=== PATIENT | female | born 1940 | race Caucasian/White ===

== ENCOUNTER 2016-10-27 01:06 | Inpatient (IN) | payer OTHER ==
[~2016-10-27] VITALS: Ht 160 cm; Wt 46.9 kg
--- NOTE | ~2016-10-27 | HC ---
[facility] [place] [address] CONSULTATION Name: ALYSE STEVENS Room #: 430-P ADM IN M.R.#: [id number] Admission: 10/27/16 Attend Phys: Marco Barragan MD Discharge: Date of : 42 Report #: [id number] THIS REPORT FOR: //name// CC: Marco Laguerre DATE OF SERVICE: 10/30/2016 INFECTIOUS DISEASE CONSULTATION ATTENDING PHYSICIAN: Dr. Barragan. REASON FOR CONSULTATION: Persistent fever. HISTORY OF PRESENT ILLNESS: The patient is a 76-year-old white woman admitted through the Emergency Room with what is said to be altered mental status. The patient has a history of laryngeal cancer and high risk for aspiration, has a percutaneous gastrostomy. The patient is at present alert and comfortable, but not quite able to give any significant medical information in view of speech impairment secondary to her previous oropharyngeal surgical intervention. PAST MEDICAL HISTORY: Laryngeal cancer in the year 2000, status post surgery, chemotherapy and radiation therapy. Cigarette smoking quit 1997. COPD -- emphysematous type. Status post percutaneous gastrostomy. DRUG ALLERGIES: None listed. MEDICATIONS: The patient is on treatment with alprazolam 0.5 mg at bedtime, p.r.n., acetaminophen 650 per feeding tube q.i.d. p.r.n., trazodone 50 mg at bedtime, atorvastatin 40 mg at bedtime, hydrocodone bitartrate one tablet b.i.d. p.r.n., Zosyn 3.375 g IV every 6 hours, amitriptyline 25 mg b.i.d., docusate 50 mg feeding tube daily, docosahexaenoic acid 1000 mg daily, famotidine 20 mg b.i.d., levothyroxine 50 mcg feeding tube daily, metoclopramide 10 mg a.c. and at bedtime feeding tube, Atrovent and albuterol inhalation treatments, guaifenesin 400 mg feeding tube q.i.d. p.r.n., pilocarpine 5 mg t.i.d. p.o. p.r.n., Benadryl. SOCIAL HISTORY: See H and P old records. FAMILY HISTORY: See H and P old records. REVIEW OF SYSTEMS: See H and P and as above. PHYSICAL EXAMINATION: GENERAL: Chronically ill-appearing woman with significant speech impairment and coughing and moving bronchial secretions. [address] [address] CONSULTATION Name: ALYSE STEVENS Room #: 430-P [facility] IN R.#: [id number] Admission: 10/27/16 Attend Phys: Marco Barragan MD Discharge: Date of : 42 Report #: [id number] VITAL SIGNS: Temperature 102, pulse 102, respirations 17, BP 133/74. Height 5 feet 3 inches, weight 103.5 pounds. O2 saturation 91% on 5 L nasal cannula. HEENMT: Head normocephalic, atraumatic. Pupils equal, reactive, heavy arcus cornealis. Mouth distortion of anatomic findings of oropharyngeal cavity, possibly secondary to previous surgery at right tongue. The patient had significant speech impairment. NECK: Stiff, possibly from previous surgery, radiation therapy. LUNGS: Rhonchi, crackles posteriorly left lung base. HEART: S1, S2. No gallop or murmur. ABDOMEN: Infraumbilical laparotomy scar. Gastrostomy tube in place, soft, no masses or megaly. PELVIC AND RECTAL: Deferred. EXTREMITIES: No clubbing, cyanosis. NEUROLOGIC: Grossly within normal limits. LABORATORY DATA: Sodium 139, potassium 3, BUN 5, creatinine 0.5. Albumin 2.6 g/dL. WBC 8000, hemoglobin 9.5, platelets 207,000. White blood cell count differential revealed 92% neutrophils. Urinalysis on admission normal. ABGs on admission revealed pH 7.43, pCO2 of 41, pO2 of 80, bicarbonate 27.4, lactate 1.04. The set of gases on 2 L oxygen nasal cannula. MICROBIOLOGY DATA: Blood cultures were obtained, they remain negative. The sputum culture was ordered and is pending at the time of this dictation. I believe not sent. RADIOLOGY EVALUATION: A CT scan of the head revealed atrophic changes compatible with age. Otherwise, interprets being negative. Chest x-ray revealed large lung volumes compatible with emphysematous changes and left basilar changes. Repeat chest x-rays have been ordered for today and this is pending at the time of this dictation. We will review when available. ASSESSMENT: 1. Persistent fevers, possibly secondary to aspiration pneumonia. 2. Aspiration pneumonia. 3. History of laryngeal cancer, status post radiation and chemotherapy. 4. Status post percutaneous gastrostomy. 5. Anemia of chronic disease. 6. Hypoalbuminemia. SUGGESTIONS: Recommend obtain procalcitonin, ESR and CRP. Continue Zosyn 3.375 g IV q.6h. MRSA nasal screen. At Zyvox 600 mg IV every 12 hours. Obtain arterial blood gases. [facility] [address] [place] [address] CONSULTATION Name: ALYSE STEVENS Room #: 430-P ADM IN M.R.#: [id number] Admission: 10/27/16 Attend Phys: Marco Barragan MD Discharge: Date of : 42 Report #: [id number] Barragan, thank you for requesting my suggestions in the care of your patient. <ELECTRONICALLY SIGNED> By: Naoh Salmeron MD 10/31/16 1309 [id number] [id number] Noah Salmeron MD /nt
--- NOTE | ~2016-10-27 | HC ---
[facility] [place] [address] CONSULTATION Name: ALYSE STEVENS Room #: 430-P [facility] IN M.R.#: [id number] Admission: 10/27/16 Attend Phys: Marco Barragan MD Discharge: 11/04/16 Date of : 42 Report #: [id number] THIS REPORT FOR: //name// CC: Marco Laguerre DATE OF SERVICE: 10/30/2016 REFERRING PHYSICIAN: . REASON FOR REFERRAL: Hypoxia. HISTORY OF PRESENT ILLNESS: The patient is a 76-year-old white female who was admitted on 10/27/2016 with altered mental status. This admission, the patient has developed progressive hypoxia. A pulmonary consultation is requested. The patient is suspected to have aspiration due to profound lethargy, weakness. She has prior CVA in the past along with laryngeal cancer, undergoing chemo and radiation therapy. Chest x-ray shows bibasilar interstitial infiltrates. Currently, she appears dyspneic, has a congested cough. She is quite weak to clear secretions. PAST MEDICAL HISTORY: Notable for as mentioned above including history of laryngeal cancer, status post chemo and radiation therapy; history of chronic aspiration, hypertension, hypothyroidism; dysphagia, undergoing PEG tube placement; hysterectomy, appendectomy. ALLERGIES: None to medications. HOME MEDICATIONS: List reviewed. FAMILY HISTORY: Noncontributory. SOCIAL HISTORY: The patient has smoked for most of her life until 1997, no alcohol use. REVIEW OF SYSTEMS: As mentioned above, is notable for marked weakness and debility. PHYSICAL EXAMINATION: GENERAL: She is awake, alert, appears moderately dyspneic. VITAL SIGNS: Temperature is 102.0 degrees Fahrenheit, pulse is 100, respiratory rate is 17, blood pressure 130/74 mmHg, saturation is 92% on supplemental O2. [facility] [address] [place] [address] CONSULTATION Name: ALYSE STEVENS Room #: 430-P [facility] IN [facility]#: [id number] Admission: 10/27/16 Attend Phys: Marco Barragan MD Discharge: 11/04/16 Date of : 42 Report #: [id number] HEENT: Normocephalic, atraumatic. NECK: Supple. CHEST: Breath sounds are coarse bilaterally with crackles in the bases. CARDIOVASCULAR: Normal S1, S2. There are no murmurs or gallop. ABDOMEN: Soft, nontender, no organomegaly or masses felt. GENITOURINARY: Deferred. RECTAL: Deferred. EXTREMITIES: There is no edema, cyanosis or clubbing. MUSCULOSKELETAL: Remarkable for moderate muscle atrophy. LABORATORY DATA: Chest x-ray shows bilateral interstitial infiltrates, greater in the right than the left. Procalcitonin is 1.8. Sodium 139, potassium 3.0, chloride 104, CO2 is 27, BUN is 5, creatinine 0.5. WBC is 8000, hemoglobin 9.7, platelets are normal. Arterial blood gas revealed pH 7.48, pCO2 41, pO2 67 on 5 liters of O2, albumin 2.6. IMPRESSION: 1. Acute hypoxic respiratory failure in this 76-year-old white female likely due to aspiration pneumonia. 2. Marked debility, weakness, and malnutrition due to multiple reasons. 3. Old cerebrovascular accident. 4. History of laryngeal cancer, status post chemo and radiation therapy. RECOMMENDATION: Agree with broad-spectrum antibiotics to cover for presumed aspiration pneumonia. Agree with linezolid and Zosyn. Would treat for approximately 7-14 days depending on clinical response. Wean O2 for saturation 90%. Follow up chest x-ray. Thank you for this consultation. <ELECTRONICALLY SIGNED> By: Corbin Worrell MD 11/04/16 1125 [id number] [id number] Corbin Worrell MD /nt
[~2016-10-27 01:06] MED LIST: ACETAMINOP160 MG/12 PER TUBE; ADULT WAL-100 MG/5 M PER TUBE; ALPRAZOLAM 0.50.5 M1 PER TUBE; AMBIEN 5 MG TABL5 M1 PER TUBE; AMITRIPTYLINE H25 M2 PER TUBE; AMITRIPTYLINE H25 M2 PO; APAP500 PER TUBE; ASPIRIN325 PER TUBE; AUGMENTIN 500-1 EACH PER TUBE; AUGMENTIN PER TUBE; AUGMENTIN250 MG/55 PER TUBE; CAL MAG ZINC +1 EAC1 PO; COZAAR 25 MG TA25 M1 PER TUBE; DOCU LIQUI50 MG/5 ML PER TUBE; DOCU LIQUI50 MG/5 ML PO; DUONEB 0.5 MG-33 ML INH; DUONEB 2.5-0.5 M3 ML INH; DUONEB 2.5-0.5 M3 ML PO; ENOXAPARIN40 MG/0.1 SUBQ; FLOMAX0.4 MG PER TUBE; HYDROCODONE-APA1 TA1 PER TUBE; HYDROCODONE-APA1 TA1 PO; IBUPROFEN 200200 M1 PO; INDERAL LA120 M1 PO; LEVOTHYROXINE0.05 MG PER TUBE; MEGA MULTI FOR1 EACH PER TUBE; MELATONIN5 M1 PER TUBE; NORVASC5 MG PO; OMEGA-31000 M1 PER TUBE; PILOCARPINE HCL5 M1 PER TUBE; POTASSIUM20 PER TUBE; PRILOSEC 20 MG20 MG PER TUBE; REGLAN 10 MG TA10 MG PER TUBE; ROBITUSSIN100 MG/53 PER TUBE; SALAGEN5 MG PER TUBE; TRAZODONE HCL50 MG PER TUBE; TRAZODONE HCL50 MG PO; TUMS PER TUBE; ZANTAC 150MG T150 MG PER TUBE; ZANTAC 150MG T150 MG PO; ZOCOR40 MG PER TUBE; [UNRECOGNIZED DRUG - OTHER] PER TUBE; [UNRECOGNIZED DRUG - OTHER] PER TUBE; [UNRECOGNIZED DRUG - OTHER] PER TUBE
[2016-10-27 01:08] VITALS: BP 93/45
[2016-10-27] MEDS ORDERED: PROLIA60 MG/1 ML IM (01:19)
[2016-10-27] MEDS ORDERED: BIOTIN5000 MCG PO (01:20)
[2016-10-27 01:32] LABS: ABG SAMPLE TYPE ARTERIAL; BE(vivo) 2.4 mmol/L (-2 to +3); LACTATE 1.04 mmol/L (0.5-2.0); O2(CT) 14.8 mL/dL (15.0-23.0); O2Hb 95.4 % (92.0-98.0); PCO2 41.6 mmHg (35.0-45.0); PO2 80.4 mmHg (80.0-100.0); STICK SITE R.RADIAL; sO2 96.1 % (92.0-98.0); tCO2 28.3 mmol/L (24.0-30.0)
[2016-10-27 01:51] LABS: HEMOGLOBIN 10.4 gm/dL (12.0-15.0); MCH 29.3 pg (26.0-34.0); MCHC 33.6 g/dL (28.0-37.0); PLATELET COUNT 204 thou/uL (150-400); RBC 3.56 mil/uL (4.20-5.00); RDW 13.9 % (10.5-14.5); WBC 10.7 thou/uL (4.0-11.0)
[2016-10-27 01:58] LABS: CALCIUM 8.8 mg/dL (8.5-10.1); CREATININE 0.6 mg/dL (0.6-1.0); POTASSIUM 3.4 mmol/L (3.5-5.1)
[2016-10-27 02:00] LABS: MANUAL DIFF YES
[2016-10-27 02:14] LABS: URINE BILIRUBIN NEGATIVE (Negative); URINE BLOOD NEGATIVE (Negative); URINE COLOR YELLOW; URINE GLUCOSE-RANDOM* NEGATIVE (Negative); URINE KETONES NEGATIVE (Negative); URINE NITRITE NEGATIVE (Negative); URINE PROTEIN (DIPSTICK) NEGATIVE (Negative); URINE SPECIFIC GRAVITY <= 1.005 (1.003-1.035)
[2016-10-27 02:18] LABS: ALBUMIN 3.2 g/dL (3.4-5.0); DIRECT BILIRUBIN 0.2 mg/dL (<0.1-0.3); TOTAL BILIRUBIN 0.5 mg/dL (<0.1-1.0); TOTAL PROTEIN 6.7 g/dL (6.4-8.2)
[2016-10-27 03:13] LABS: TOTAL CELL COUNT 100
[2016-10-27 03:40] VITALS: BP 102/67
[2016-10-27 04:00] VITALS: BP 124/73
[2016-10-27 15:53] VITALS: BP 111/73
[2016-10-27 20:00] VITALS: BP 163/89
[2016-10-28 00:56] VITALS: BP 90/64
[2016-10-28 04:30] VITALS: BP 99/44
[2016-10-28 07:48] VITALS: BP 107/46
[2016-10-28 16:04] VITALS: BP 97/55
[2016-10-28 20:00] VITALS: BP 156/78
[2016-10-29 04:00] VITALS: BP 124/63
[2016-10-29 06:26] LABS: HEMATOCRIT 28.1 % (37.0-47.0); HEMOGLOBIN 9.5 gm/dL (12.0-15.0); MCH 29.4 pg (26.0-34.0); MCHC 33.8 g/dL (28.0-37.0); PLATELET COUNT 207 thou/uL (150-400); RBC 3.23 mil/uL (4.20-5.00); RDW 14.2 % (10.5-14.5)
[2016-10-29 06:32] LABS: MANUAL DIFF YES
[2016-10-29 06:57] LABS: ALBUMIN 2.6 g/dL (3.4-5.0); CALCIUM 7.6 mg/dL (8.5-10.1); CREATININE 0.5 mg/dL (0.6-1.0); TOTAL BILIRUBIN 0.2 mg/dL (<0.1-1.0); TOTAL PROTEIN 5.9 g/dL (6.4-8.2)
[2016-10-29 07:23] VITALS: BP 116/62
[2016-10-29 08:10] LABS: ABSOLUTE NEUTROPHILS 7.4 thou/uL (1.4-8.2); ANISOCYTOSIS SLIGHT; TOTAL CELL COUNT 100
[2016-10-29 16:14] VITALS: BP 133/75
[2016-10-29 20:00] VITALS: BP 184/80
[2016-10-29 23:00] VITALS: BP 143/49
[2016-10-30 04:11] VITALS: BP 162/73
[2016-10-30 07:17] VITALS: BP 133/74
[2016-10-30 12:49] LABS: ABG SAMPLE TYPE ARTERIAL; BE(vivo) 6.4 mmol/L (-2 to +3); HCO3 30.4 mmol/L (22.0-26.0); LACTATE 1.14 mmol/L (0.5-2.0); O2(CT) 15.2 mL/dL (15.0-23.0); PCO2 41.3 mmHg (35.0-45.0); PO2 67.4 mmHg (80.0-100.0); STICK SITE R.RADIAL; pH 7.485 (7.360-7.450); sO2 94.6 % (92.0-98.0); tCO2 31.7 mmol/L (24.0-30.0)
[2016-10-30 15:29] VITALS: BP 150/71
[2016-10-30 20:00] VITALS: BP 120/71
[2016-10-31 04:56] VITALS: BP 163/66
[2016-10-31 07:45] VITALS: BP 142/76
[2016-10-31 10:57] LABS: HEMOGLOBIN 9.8 gm/dL (12.0-15.0); MCH 29.6 pg (26.0-34.0); MCHC 33.7 g/dL (28.0-37.0); MCV 87.8 fL (80.0-100.0); PLATELET COUNT 191 thou/uL (150-400); RBC 3.31 mil/uL (4.20-5.00); WBC 7.9 thou/uL (4.0-11.0)
[2016-10-31 10:59] LABS: MANUAL DIFF YES
[2016-10-31 11:07] LABS: CREATININE 0.5 mg/dL (0.6-1.0)
[2016-10-31 11:09] LABS: POTASSIUM 2.2 mmol/L (3.5-5.1)
[2016-10-31 11:21] LABS: ABSOLUTE NEUTROPHILS 7.2 thou/uL (1.4-8.2); TOTAL CELL COUNT 80
[2016-10-31 11:22] LABS: ANISOCYTOSIS SLIGHT
[2016-10-31 15:28] VITALS: BP 100/59
[2016-10-31 20:00] VITALS: BP 134/82
[2016-11-01 04:00] VITALS: BP 143/62
[2016-11-01 06:34] LABS: HEMATOCRIT 27.2 % (37.0-47.0); HEMOGLOBIN 9.1 gm/dL (12.0-15.0); MCH 29.1 pg (26.0-34.0); MCHC 33.6 g/dL (28.0-37.0); MCV 86.7 fL (80.0-100.0); RBC 3.14 mil/uL (4.20-5.00); RDW 13.9 % (10.5-14.5); WBC 6.1 thou/uL (4.0-11.0)
[2016-11-01 06:47] LABS: CALCIUM 7.8 mg/dL (8.5-10.1); CREATININE 0.4 mg/dL (0.6-1.0)
[2016-11-01 06:58] LABS: POTASSIUM 2.4 mmol/L (3.5-5.1)
[2016-11-01 07:50] VITALS: BP 147/72
[2016-11-01 15:10] VITALS: BP 127/69
[2016-11-01 21:00] VITALS: BP 138/62
[2016-11-02 03:51] VITALS: BP 136/76
[2016-11-02 04:33] LABS: MAGNESIUM 1.9 mg/dL (1.8-2.4); POTASSIUM 3.2 mmol/L (3.5-5.1)
[2016-11-02 07:17] VITALS: BP 149/72
[2016-11-02 13:26] VITALS: BP 122/61
[2016-11-02 15:09] VITALS: BP 119/59
[2016-11-02 20:00] VITALS: BP 133/69
[2016-11-03 04:00] VITALS: BP 117/60
[2016-11-03 04:17] LABS: HEMATOCRIT 27.4 % (37.0-47.0); HEMOGLOBIN 9.1 gm/dL (12.0-15.0); MCH 29.4 pg (26.0-34.0); MCHC 33.1 g/dL (28.0-37.0); MCV 88.6 fL (80.0-100.0); RBC 3.09 mil/uL (4.20-5.00); RDW 14.3 % (10.5-14.5)
[2016-11-03 07:27] VITALS: BP 130/76
[2016-11-03 15:55] VITALS: BP 152/74
[2016-11-03 17:01] VITALS: BP 152/74
[2016-11-03 20:43] VITALS: BP 167/90
[2016-11-04 05:00] VITALS: BP 148/70
[2016-11-04] MEDS ORDERED: AUGMENTIN 875875 MG PER TUBE (07:18)
[2016-11-04 07:52] VITALS: BP 145/87
[2016-11-04 09:26] VITALS: BP 152/74
[2016-11-04] MEDS ORDERED: OXYGEN MISCELL ×2 (10:00→10:02)
== END 2016-11-04 10:32 | disposition home health service (06) | DRG 177 ==
LOC: ER 01:06 → EROBS 02:34 → 4E 02:34
PROVIDERS: Emergency Medicine; Family Medicine; Internal Medicine Infectious Disease; Internal Medicine Pulmonary Disease; Nurse Practitioner Family
DX: J69.0 Pneumonitis due to inhalation of food and vomit (principal); J96.01 Acute respiratory failure with hypoxia; E43 Unspecified severe protein-calorie malnutrition; I10 Essential (primary) hypertension; E78.5 Hyperlipidemia, unspecified; J44.9 Chronic obstructive pulmonary disease, unspecified; R41.82 Altered mental status, unspecified; D63.8 Anemia in other chronic diseases classified elsewhere; E03.9 Hypothyroidism, unspecified; E87.6 Hypokalemia; Z90.710 Acquired absence of both cervix and uterus; Z90.49 Acquired absence of other specified parts of digestive tract; Z86.73 Personal history of transient ischemic attack (TIA), and cerebral infarction without residual deficits; Z85.810 Personal history of malignant neoplasm of tongue; Z93.1 Gastrostomy status; Z87.891 Personal history of nicotine dependence; Z85.21 Personal history of malignant neoplasm of larynx; Z92.21 Personal history of antineoplastic chemotherapy; Z92.3 Personal history of irradiation; Z79.899 Other long term (current) drug therapy
CPT/HCPCS: 10183

== ENCOUNTER 2017-02-26 16:31 | Emergency (ER) | payer OTHER ==
[~2017-02-26] VITALS: Ht 160 cm; Wt 45.4 kg
[~2017-02-26 16:31] MED LIST changes: +AUGMENTIN 875875 MG PER TUBE; +BIOTIN5000 MCG PO; +OXYGEN MISCELL; +PROLIA60 MG/1 ML IM
== END 2017-02-26 17:26 | disposition home or self-care (01) ==
LOC: ER 16:31
DX: K94.23 Gastrostomy malfunction (principal); R63.8 Other symptoms and signs concerning food and fluid intake; I10 Essential (primary) hypertension; E78.00 Pure hypercholesterolemia, unspecified; E03.9 Hypothyroidism, unspecified; Z85.810 Personal history of malignant neoplasm of tongue; Z90.710 Acquired absence of both cervix and uterus; Z90.49 Acquired absence of other specified parts of digestive tract; Z87.891 Personal history of nicotine dependence; Y84.9 Medical procedure, unspecified as the cause of abnormal reaction of the patient, or of later complication, without mention of misadventure at the time of the procedure; Y92.89 Other specified places as the place of occurrence of the external cause

== ENCOUNTER → 2017-02-27 | Outpatient (CLI) | payer OTHER | LOC: SPEC 10:40 | DX: K94.23 Gastrostomy malfunction (principal); I10 Essential (primary) hypertension; E78.00 Pure hypercholesterolemia, unspecified; E03.9 Hypothyroidism, unspecified; M81.0 Age-related osteoporosis without current pathological fracture; Z90.710 Acquired absence of both cervix and uterus; Z85.810 Personal history of malignant neoplasm of tongue; Z98.890 Other specified postprocedural states; Z87.891 Personal history of nicotine dependence; Z79.899 Other long term (current) drug therapy ==

== ENCOUNTER → 2017-08-28 | Outpatient (CLI) | payer OTHER ==
[~2017-08-28] VITALS: Ht 162.6 cm; Wt 45.4 kg
[2017-08-28 12:55] VITALS: BP 129/44
== END | disposition home or self-care (01) ==
LOC: SPEC 06:52
DX: K94.23 Gastrostomy malfunction (principal); I10 Essential (primary) hypertension; E78.00 Pure hypercholesterolemia, unspecified; E03.9 Hypothyroidism, unspecified; Z90.710 Acquired absence of both cervix and uterus; Z90.49 Acquired absence of other specified parts of digestive tract; Z85.810 Personal history of malignant neoplasm of tongue; Z87.891 Personal history of nicotine dependence; Z79.891 Long term (current) use of opiate analgesic; Z98.890 Other specified postprocedural states

== ENCOUNTER → 2018-04-05 | Outpatient (CLI) | payer OTHER ==
[2018-04-05 12:29] VITALS: BP 200/100
== END | disposition home or self-care (01) ==
LOC: SPEC 12:14
DX: K94.23 Gastrostomy malfunction (principal); Z53.9 Procedure and treatment not carried out, unspecified reason; I10 Essential (primary) hypertension; E78.00 Pure hypercholesterolemia, unspecified; E03.9 Hypothyroidism, unspecified; Z79.899 Other long term (current) drug therapy; Z85.810 Personal history of malignant neoplasm of tongue; Z90.710 Acquired absence of both cervix and uterus; Z90.49 Acquired absence of other specified parts of digestive tract; Z98.890 Other specified postprocedural states; Z87.891 Personal history of nicotine dependence

== ENCOUNTER 2018-07-15 11:26 | Inpatient (IN) | payer OTHER ==
[~2018-07-15] VITALS: Ht 160 cm; Wt 59.0 kg
[2018-07-15 11:28] VITALS: BP 130/61
[2018-07-15 11:55] LABS: ABSOLUTE NEUTROPHILS 15.9 thou/uL (1.4-8.2); BASOPHILS 0.6 % (0.0-2.0); EOSINOPHILS 0.1 % (0.0-3.0); HEMATOCRIT 32.7 % (37.0-47.0); HEMOGLOBIN 10.8 gm/dL (12.0-15.0); MCH 30.8 pg (26.0-34.0); MCV 93.3 fL (80.0-100.0); MONOCYTES 5.2 % (1.0-8.0); PLATELET COUNT 526 thou/uL (150-400); POLYS 91.1 % (36.0-66.0); RBC 3.51 mil/uL (4.20-5.00); RDW 15.9 % (10.5-14.5); WBC 17.4 thou/uL (4.0-11.0)
[2018-07-15 12:05] LABS: ANION GAP 14 mmol/L (7-16); BUN 12 mg/dL (7-18); CALCIUM 8.9 mg/dL (8.5-10.1); CHLORIDE 97 mmol/L (98-107); CO2 28 mmol/L (21-32); CREATININE 0.6 mg/dL (0.6-1.0); GLUCOSE 75 mg/dL (74-106); SODIUM 139 mmol/L (136-145)
[2018-07-15 12:13] LABS: ALBUMIN 2.3 g/dL (3.4-5.0); SGOT 23 U/L (15-37); SGPT 15 U/L (30-65); TOTAL BILIRUBIN 0.3 mg/dL (<0.1-1.0); TOTAL PROTEIN 6.9 g/dL (6.4-8.2); TROPONIN-I <0.06 ng/mL (<0.06)
[2018-07-15 12:27] LABS: URINE CLARITY CLEAR; URINE COLOR YELLOW
[2018-07-15 12:33] LABS: URINE BILIRUBIN NEGATIVE (Negative); URINE BLOOD NEGATIVE (Negative); URINE GLUCOSE-RANDOM* NEGATIVE (Negative); URINE KETONES 1+ (Negative); URINE LEUKOCYTES-REFLEX NEGATIVE (Negative); URINE NITRITE-REFLEX NEGATIVE (Negative); URINE PROTEIN (DIPSTICK) NEGATIVE (Negative); URINE SPECIFIC GRAVITY <= 1.005 (1.005-1.035); URINE UROBILINOGEN 0.2 E.U./dl (0.2-1.0)
[2018-07-15 15:15] VITALS: BP 130/61
[2018-07-15 16:05] VITALS: BP 116/59
[2018-07-15 19:10] VITALS: BP 178/87
--- NOTE | 2018-07-15 20:31 | NUR ---
ASSUMED CARE OF PT AT 16:30. PT ARRIVED FROM ED IN STABLE CONDITION. BRONWYN STEVENS (SON) AT BEDSIDE. PT BELONGINGS DOCUMENTED - CLOTHES, SHOES, JACKET, PURSE. ORIENTED TO ROOM AND CALL LIGHT. ADMISSION ASSESSMENT COMPLETED. DENIES PAIN. [address], OXYGEN USE AT HOME 2 L NC AT NIGHT NEEDED. PEG TUBE PATENT, JEVITY 1.5 TUBE FEEDING RUNNING AT 20, GOAL IS 40. SON CONCERNED ABOUT RATE OF IV FLUIDS. DR. MEDEL NOTIFIED. ORDERED TO RUN ONE TIME IV FLUID, SEE EMAR. PT NPO, COUGH NOTED FROM ASPIRATION PNEUMONIA. HX OF JAW SURGERY, WOUND ON LEFT JAW COVERED WITH GAUZE AND SHANTHI AID. PT A&0, X4. PT HAS SLURRED SPEECH AT BASELINE DUE TO HX. ANXIOUS AT TIMES. PT IN STABLE CONDITION. END OF SHIFT.
[2018-07-15] MEDS ORDERED: NEURONTIN 300300 M1 PO (21:41)
--- NOTE | 2018-07-15 22:17 | EKG ---
[address] [address] ELECTROCARDIOGRAM REPORT Name: ALYSE STEVENS Room #: 419-P ADM IN M.R.#: [id number] Admission: 07/15/18 Attend Phys: Lesly Lauren Discharge: Date of : 42 Report #: [id number] THIS REPORT FOR: //name// [facility] ED Test Date: 2018-07-15 Test Time: 11:47:40 Pat Name: ALYSE STEVENS Department: Room: [facility] Gender: F Collar Trimmer: ROWDY : 1940 Requested By: Nav Ulrich Order Number: [id number] MD: Francisco Salmeron Measurements Intervals Wallace Rate: 81 P: 74 AK: 171 QRS: 12 QRSD: 108 T: 51 QT: 409 QTc: 475 Interpretive Statements Sinus rhythm Probable left atrial enlargement Left ventricular hypertrophy Compared to ECG 07/06/2015 07:25:01 Left ventricular hypertrophy now present Sinus tachycardia no longer present ST (T wave) deviation no longer present Possible ischemia no longer present Electronically Signed On 07-15-2018 22:17:25 FORMULA TECHNICIAN by Francisco Salmeron [email or web address] <ELECTRONICALLY SIGNED> By: Francisco Salmeron MD 07/15/18 2217 1147 1147 Francisco Salmeron MD /EPI
[2018-07-16 03:46] VITALS: BP 170/83
--- NOTE | 2018-07-16 04:33 | NUR ---
ASSUMED CARE AT 1900, ASSESSMENT COMPLETED. PT A&0x4, ABLE TO DISCUSS HER CURRENT MED REGIMEN; NOT DROWSY OR STRUGGLING TO ANSWER QUESTIONS. C/O HEADACHE, GAVE TYLENOL BY TUBE WHICH RELIEVED HEADACHE. DENIED NAUSEA OR SOB. NORMAL BREATHING PATTERN, LOWER LUNGS SLIGHT CRACKLES, DENIES COUGHING. C/O DRY MOUTH, TOLERATES SPONGES IN ICE, BUT C/O LEAKAGE FROM SURGICAL WOUND ON LEFT CHEEK. PLACED OPTIFOAM OVER SITE, CONSULTED DORMITORY COUNSELOR AT FAMILY/PATIENT REQUEST. JEVITY 1.5 INFUSING AT 20 ML/HR INTO PEG TUBE OVERNIGHT, NO RESIDUAL NOTED, 50 ML WATER FLUSH GIVEN. MIDNIGHT BLOOD SUGAR HIGH, BUT PT RECEIVING D5 FLUIDS WHICH STOPPED ABOUT 0200, DID NOT GIVE INSULIN. NO OTHER CONCERNS, WILL CONTINUE TO MONITOR.
[2018-07-16 05:29] LABS: HEMATOCRIT 31.8 % (37.0-47.0); HEMOGLOBIN 10.5 gm/dL (12.0-15.0); MCH 31.1 pg (26.0-34.0); MCV 94.5 fL (80.0-100.0); RBC 3.36 mil/uL (4.20-5.00); RDW 15.5 % (10.5-14.5); WBC 14.4 thou/uL (4.0-11.0)
[2018-07-16 07:15] VITALS: BP 198/90
[2018-07-16 08:25] VITALS: BP 180/81
--- NOTE | 2018-07-16 09:54 | NUR ---
If physician would like to keep pt at a tube feed goal rate of 40ml/hr, then recommend change tube feed formula to TwoCal HN. Otherwise will need 50ml/hr if continues on Jevity 1.5 formula
--- NOTE | 2018-07-16 14:46 | NUR ---
pt back in room, from test per orders. intro to cm, dcp, home health, rehab and transition of care. pt is a & o x 3, pleasant and able to make her needs know. remy reported " home alone, independent when feeling ok. drive, manage own medication, own tube feeding, from [facility]. have concentrator at home and 2 portable tanks. have private duty from visiting [employer]. had home health in past but not sure who it was with."/remy. no complaints during visit. cm passed on to nursing staff that pt wanting to see bedside nurse. discussed during los, there through weekend per hospitalist, possible thursday.
[2018-07-16 18:10] LABS: GLYCOHEMOGLOBIN (HGB A1C) 5.4 % (4.8-5.6)
[2018-07-16 20:50] VITALS: BP 194/97
[2018-07-17 00:05] VITALS: BP 137/68
--- NOTE | 2018-07-17 05:17 | NUR ---
REPORT RECEIVED FROM ELVI RN AT 2007. PT ARRIVED ON UNIT AT 2049 VIA WC WITH O2 @ 2L. BP UPON ARRIVAL 194/97, HR: 91. PT DENIES PAIN. ORDER RECEIVED FROM AURICULOTHERAPIST FOR PRN HYDRALAZINE 10MG Q6H PRN SBP >160. AFTER SITUATING AND ORIENTING TO UNIT, BP: 180/95. PRN HYDRALAZINE GIVEN PER PEG PER DR ORDER. BP @ 0005: 137/68, HR: 72. ZOSYN 100 ML @ 25 ML/HR GIVEN X2 VIA LEFT FA PIV WITHOUT COMPLICATION. OPTIFOAM DRSG ON LEFT CHEEK/JAW C/D/I. CONTINUOUS TUBE FEEDINGS OF JEVITY 1.5 @ 40 ML/HR GIVEN THROUGHOUT THE NIGHT WITHOUT COMPLICATION. PT C/O PRODUCTIVE COUGH. PT CURRENTLY SLEEPING SOUNDLY IN BED IN NO ACUTE DISTRESS. CALL LIGHT WITHIN REACH. BED LOCKED AND IN LOWEST POSITION. TM.
[2018-07-17 10:00] VITALS: BP 140/82
--- NOTE | 2018-07-17 10:00 | NUR ---
ASSUMED PT CARE AT 0700. ASSESSMENT COMPLETE AND IS CHARTED AT 1030. PT AWAKE AND ALERT/ORIENTED X4. RESTING IN BED. O2 REMAINS AT 2L PER NC. TUBE FEEDING IS JEVITY 1.5 AT 40ML/HR CONTINUOUS. PT DOES NOT APPEAR IN ANY ACUTE RESP DISTRESS THOUGH LUNGS ARE COURSE. PT HAS A MOIST PRODUCTIVE COUGH. VITAL SIGNS STABLE. WILL CONTINUE WITH CURRENT CARE.
--- NOTE | 2018-07-17 14:13 | NUR ---
ORAL SUCTIONING PROVIDED FOR PT. INSTRUCTED PT TO SUCTION OR SPIT SECRETIONS TO PREVENT ASPIRATION. TUBE FEEDING CHANGED TO GLUCERN 1.2 AT 1030 PER ORDERS. WILL CONTINUE TO MONITOR.
--- NOTE | 2018-07-17 16:11 | NUR ---
MESSAGE LEFT ON SPACER TYPE BAR AND SEGMENT VOICEMAIL FOR CONSULT.
--- NOTE | 2018-07-17 18:01 | NUR ---
PT CONTINUES TOWARDS GOALS. ORAL SUCTIONING AT BEDSIDE. PT USING WITHOUT DIFFICULTY. MOIST COUGH STILL NOTED. TOLERATING FEEDINGS WELL. NO NEW CONCERNS AT THIS TIME.
[2018-07-17 19:20] VITALS: BP 191/94
[2018-07-17 20:12] VITALS: BP 190/90
[2018-07-17 20:38] VITALS: BP 182/97
[2018-07-17 21:27] VITALS: BP 181/86
[2018-07-18 02:14] VITALS: BP 98/62
[2018-07-18 05:26] VITALS: BP 97/56
--- NOTE | 2018-07-18 06:04 | NUR ---
ASSUMED CARE OF PATIENT AT 1900. BP: 191/94. PRN HYDRALAZINE GIVEN AT 192. 2011: BP: 190/90, HR: 94. 2037: BP: 182/97, HR: 93. ASSESSMENT COMPLETED AT 2099 AND IS DOCUMENTED. LUNG SOUNDS REMAIN COARSE. PRODUCTIVE COUGH WITH PATIENT INDEPENDENTLY SUCTIONING ORALLY. MICROSTRATEGY REPORTS DEVELOPER NOTIFIED @ 2145 OF PT'S HTN. ORDERS FOR CLONIDINE 0.2MG ONE TIME DOSE RECEIVED AND GIVEN AT 2205. ALSO NEW ORDER TO RESTART LOSARTAN 25MG ONCE DAILY 07/18 @ 0900. PRN NORCO GIVEN FOR C/O 01/29 HEADACHE WITH NO RELIEF. PT DENIES HEADACHE OR PAIN THIS AM. 0215: BP: 98/62, HR: 74. 0526: BP: 97/56, HR: 76. PT UP TO BSC X1 ALL NIGHT. ZOSYN GIVEN X2 VIA LEFT FA PIV WITHOUT COMPLICATION. CONTINUES ON O2 @ 2L VIA NC. GLUCERNA TUBE FEEDING RUNNING AT 40 ML/HR, PATIENT TOLERATING WELL. PT CURRENTLY SLEEPING SOUNDLY IN BED IN NO ACUTE DISTRESS. CALL LIGHT WITHIN REACH. BED LOCKED AND IN LOWEST POSITION. WCTM.
--- NOTE | 2018-07-18 06:40 | NUR ---
THIS NURSE AGREES WITH THE ASSESSMENT AND NOTES ON THIS PATIENT FROM PRINTED CIRCUIT PHOTOGRAPHER.
[2018-07-18 06:49] LABS: CALCIUM 8.7 mg/dL (8.5-10.1); CREATININE 0.7 mg/dL (0.6-1.0); MAGNESIUM 1.5 mg/dL (1.8-2.4)
[2018-07-18 06:54] LABS: POTASSIUM 2.6 mmol/L (3.5-5.1)
[2018-07-18 07:32] VITALS: BP 112/51
[2018-07-18 07:47] LABS: FOLIC ACID 27.6 ng/mL (8.6-58.9)
--- NOTE | 2018-07-18 11:17 | NUR ---
ASSUMED CARE OF PATIENT THIS MORNING. PATIENT IS ALERT AND ORIENTED X3. SHE IS UP WITH STANDBY ASSISTANCE. PATIENT HAS CONTINUOUS GLUCERNA TUBE FEEDING RUNNING AT 40 ML/HR. NO GASTRIC RESIDUAL OBSERVED. PATIENT PERFORMS SELF ORAL SUCTIONING WITH A AYAHUER. SHE RECEIVED MEDICATION THROUGH HER PEG TUBE CRUSHED. POTASSIUM WAS 2.6 THIS MORNING. IV POTASSIUM WAS ORGINALLY ORDERED BY NURSE PRACTITIONER BUT LATER STOPPED BY PHYSICIAN. PATIENT IS ALSO RECEIVING IV MAGNESIUM. SHE IS ON 2L OF OXYGEN. SHE HAS A DRESSING ON THE OUTSIDE OF HER LEFT JAW. PATIENT IS CURRENTLY RESTING IN BED WITH CALL LIGHT WITHIN REACH. PATIENT CALLS OUT APPROPRIATELY FOR ASSISTANCE. FALL PRECAUTIONS IN PLACE.
[2018-07-18 18:29] VITALS: BP 147/67
[2018-07-19 06:39] LABS: CALCIUM 8.7 mg/dL (8.5-10.1); CREATININE 0.7 mg/dL (0.6-1.0)
[2018-07-19 06:41] LABS: POTASSIUM 3.6 mmol/L (3.5-5.1)
[2018-07-19 07:14] VITALS: BP 105/51
--- NOTE | 2018-07-19 07:38 | HC ---
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 HISTORY OF PRESENT ILLNESS: Chart reviewed, patient examined. This is a 78-year-old woman with fairly extensive medical history and diagnosis of pharyngeal cancer back in the early 1999, underwent aggressive therapy including radiation treatment. She was left with an osteonecrosis and over the course of the years, has had two extended periods of hyperbaric oxygen and reconstructive surgery. There was a concern about chronic infection due to the fact that she has chronic draining sinus tract. We do not have any available cultures. She reports what appears to be chronic suppressive therapy, taking doxycycline for the better part of the year. It is not clear that she had recent fevers. She does aspirate with oral food intake. She does receive bolus enteral feedings via a PEG tube. Her weight is variable and recently increased her intake due to weight loss. She denies any abdominal-related complaints. She apparently has a caregiver, although she is able to ambulate typically. Blood cultures were collected at the time of admission, 06/[address] soft tissue of the neck shows erosion fragmentation of the body of the mandible on left consistent with osteomyelitis. No evident soft tissue abscess. Lactic acid was elevated at 3.7 on admission. At this point, she is quite lucid, some moderate degree of discomfort. ALLERGIES: None known. CURRENT MEDICATIONS: Include vancomycin, metformin, losartan, levothyroxine, gabapentin, trazodone, alprazolam, enoxaparin, Zosyn, insulin sliding scale, metoclopramide. PAST MEDICAL HISTORY: Includes above-noted pharyngeal cancer, hypertension in the past, currently on no medicines, high cholesterol, hypothyroidism, repeated ongoing aspiration, has a PEG tube, hysterectomy, appendectomy. [address] [address] CONSULTATION Name: CORINEALYSE Room #: 226-P [facility] IN .R.#: [id number] Admission: 07/15/18 Attend Phys: Lesly Lauren Discharge: Date of : 42 Report #: [id number] SOCIAL HISTORY: Former smoker. No ethanol. FAMILY HISTORY: Noncontributory. REVIEW OF SYSTEMS: Otherwise, 10-point review of systems unremarkable with exception noted in history of present illness. PHYSICAL EXAMINATION: GENERAL: She appears chronically ill, very pleasant, cooperative, appears undernourished, [id number] distress. VITAL SIGNS: Temperature 98.2, pulse 77, respirations 18, blood pressure 112/51. SKIN: Warm. HEENT: Remarkable for the extraocular muscles intact. There is a draining sinus with purulent material. It is quite tender to palpation, increased from baseline. NECK: Supple. LUNGS: Somewhat diminished, right-sided rales. HEART: Regular. I do not appreciate any murmur. ABDOMEN: Soft, nontender, nondistended. EXTREMITIES: No cyanosis. GENITOURINARY AND RECTAL: Deferred. LABORATORY DATA: Blood cultures 06/[address] of soft tissue neck was noted above. TSH 0.972. Urinalysis unremarkable. Electrolytes: Sodium 139, potassium 3.0, chloride 97, bicarbonate is 28, anion gap of 14, BUN and creatinine of 12 and 0.6. LFTs unremarkable. Albumin of 2.3. Total protein 6.9, estimated GFR of 97. Chest x-ray: Areas of pneumonitis in right lower lobe, likely some acute on chronic component. ASSESSMENT: Probable chronic osteomyelitis involving the left mandible, longstanding issues with a sinus tract. Whether this is the issue led to the episode is unclear. I think we would be mindful of risk of aspiration changes on her x-ray. At this point, she is on supplemental oxygen, although she is not in distress. We will continue empiric therapy with vancomycin, piperacillin and tazobactam. PLAN: Noted plans to obtain records from . We will await final blood culture results. The evidence may well favor false positive contaminant. We will discuss with Dr. Breaux. <ELECTRONICALLY SIGNED> By: Andrea Ordaz MD 07/19/18 0738 1737 [id number] Andrea Ordaz MD /nt
--- NOTE | 2018-07-19 10:11 | NUR ---
Formula changed to glucerna with slight elevated BG. Recommend adjust goal rate to 60ml/hr or could use Jevity 1.5 at 50ml/hr if lower infusion rate preferred
--- NOTE | 2018-07-19 14:20 | NUR ---
WOUND CONSULT: PT. WAS SEEN TODAY BY DR. MANCINI AND MYSELF. PT. HAS A WOUND TO HER LEFT CHEECK. IT HAS BEEN CONFIRMED BY CT THAT THERE IS UNDERLYING OSTEO IN HER MANDIBLE. DR. MANCINI HAD A LONG DISCUSSION WITH BOTH THE PT. AND SON AND AT THIS TIME THEY DO NOT WISH TO PROCEED WITH ANY MORE SURGICAL INTERVENTION. PLAN WILL BE TO FOLLOW UP IN THE WOUND CLINIC ON A OUTPAIENT BASIS. RECOMMENDATIONS: BORDERED FOAM TO BE CHANGED DAILY AND PRN SOILAGE. PT. AND STAFF NURSE WERE INSTRUCTED ON PLAN OF CARE.
--- NOTE | 2018-07-19 15:05 | NUR ---
ASSUMED CARE OF PATIENT THIS MORNING. PATIENT IS A&O WITH SOME CONFUSION. SHE WAS NOT ABLE TO IDENTIFY WHERE SHE WAS THIS MORNING. ONCE SHE WOKE UP MORE SHE BECAME MORE ORIENTED. PATIENT'S TRANSFER TO WAS CANCELED, THE POSSIBLE SURGERY THAT WAS ORIGINALLY TALKED ABOUT WILL NOT BE PERFORMED. PHYSICIAN IS CONSIDERING DISCHARGING PATIENT TOMORROW. SHE IS ON CONTINUOUS TUBE FEEDING OF GLUCERNA. DIETITIAN WAS CONSULTED AND WANTED TO INCREASE THE AMOUNT OF FEEDING FROM 40ML/HR TO 60ML/HR, DR. MEDEL OK'D THE INCREASE. SHE IS NPO, ALL MEDICATIONS ARE CRUSHED AND PUT THROUGH PEG TUBE. HER FACIAL WOUND WAS OBSERVED BY WOUND CARE TODAY AND HER OPTIFOAM DRESSING WAS CHANGED. SHE HAS NOT COMPLAINED OF ANY PAIN TODAY. SHE SELF SUCTIONS WITH A YANKAUER, SMALL AMOUNTS OF SPUTUM HAVE BEEN PRODUCED THROUGHOUT THE DAY. DIMINISHED BREATH SOUNDS WERE HEARD UPON AUSCULTATION THIS MORNING. SHE RECEIVES Q4H BREATHING TREATMENTS AND ON 2L OF OXYGEN. PATIENT IS ON FALL PRECAUTIONS. SHE IS CURRENTLY SITTING IN THE RECLINER WITH THE CHAIR ALARM UNDERNEATH HER. PATIENT HAS CALL LIGHT WITHIN REACH AND ONLY CALLS OUT AT TIMES FOR ASSISTANCE. WILL CONTINUE TO CHECK ON PATIENT FOR ANY NEEDED ASSISTANCE.
--- NOTE | 2018-07-19 16:07 | HC ---
[facility] [place] [address] CONSULTATION Name: HILDAALYSE David Room #: 226-P ADM IN M.R.#: [id number] Admission: 07/15/18 Attend Phys: Lesly Lauren Discharge: Date of : 44 Report #: [id number] THIS REPORT FOR: //name// CC: Lesly Laguerre DATE OF SERVICE: 07/16/2018 CHIEF COMPLAINT AND REASON FOR ADMISSION: Altered mental status. HISTORY OF PRESENT ILLNESS: The patient was apparently felt to be slumped on a couch, began sliding off, caregiver felt that she was not safe at home and was brought to the hospital. She has had a chronic draining surgical wound or possible fistula near the angle of the left mandible. She has apparently had previous surgical intervention at last July. She has had previous hyperbaric oxygen therapy, presumably for osteoradionecrosis of the mandible. She has not been able to eat or drink very well. She does drink coffee for pleasure and is presumed to have some ongoing aspiration. The patient denies significant pain in her mouth at this time, but does have the inability to swallow or eat and has a feeding tube. PAST MEDICAL HISTORY: Positive for history of tongue cancer and subsequent radiation and presumably also chemotherapy. Records are not available for review at this time. She has a history of chronic aspiration, has a history of PEG tube. PAST SURGICAL HISTORY: She has had previous hysterectomy, appendectomy, high cholesterol and hypertension. SOCIAL HISTORY: The patient is a previous smoker. No history of alcohol use. FAMILY HISTORY: Noncontributory. ALLERGIES: No known drug allergies. MEDICATIONS: Include Synthroid, [place], alprazolam, metoclopramide, Prilosec, Zocor, Zantac, Elavil, omega 3, Desyrel, Salagen, DuoNeb, Prolia, and biotin. REVIEW OF SYSTEMS: Somewhat limited and are mainly discussed already in the history of present illness. The patient denies pain. She is aware that she has had surgical intervention to her left mandible, the details of which are not exactly understood. She had radiation in 2000 for tongue cancer as well as surgical intervention. She presumably developed complications of osteonecrosis of the mandible and did undergo some duration of hyperbaric oxygen therapy both at [facility] and at [facility]. Other systems are negative. [address] [address] CONSULTATION Name: AMYALYSE Lam Room #: 226-P [facility] IN ..#: [id number] Admission: 07/15/18 Attend Phys: Lesly Lauren Discharge: Date of : 42 Report #: [id number] PHYSICAL EXAMINATION: VITAL SIGNS: At this time include pulse rate 100, respiratory rate 18, blood pressure 180/81, temperature 98.9. GENERAL: This is a chronically ill and somewhat thin-appearing female patient who appears to be in minimal distress. HEENT: Head normocephalic. Nose is clear. Throat demonstrates the oropharynx is difficult to visualize likely due to radiation effect as well as post-surgical change. There is an area of crusting and ulceration near the angle of the mandible on the left. It is minimally tender. NECK: Supple. LUNGS: Diminished. HEART: Regular rhythm. ABDOMEN: Soft. EXTREMITIES: Without clubbing or cyanosis. NEUROLOGIC: The patient does appear to be alert, has a symmetrical motor exam. LABORATORY DATA: Includes sodium 139, potassium 3.0, chloride 97, CO2 of 28, BUN 12, creatinine 0.6, glucose of 75, AST is 23, total bilirubin 0.3, calcium is 8.9, alkaline phosphatase 111, ALT 15, total protein 6.9, albumin 2.3. CRP is 246. White blood cell count is 14.4 with hemoglobin of 10.5, hematocrit of 31.8. Sed rate is pending. CT scan of the neck and mandible demonstrates erosion and fragmentation of the body of the mandible on the left consistent with osteomyelitis. No associated soft tissue mass or abscess seen. No cervical lymphadenopathy. Bilateral carotid artery calcification and biapical emphysema and pleural parenchymal scarring. CLINICAL IMPRESSION: 1. Surgical wound versus sinus tract involving the left neck just inferior and posterior of the angle of the mandible on the left. 2. History of tongue cancer status post surgery and radiation, possible previous chemotherapy. 3. 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 RECOMMENDATIONS: At this point in time, we will check sed rate and CRP. Patient may have already received maximal therapy for her mandibular process, although it appears that it is not entirely resolved. She may require additional antibiotic therapy, surgical intervention and possible need for mandibular reconstruction, which would require hyperbaric oxygen therapy for support. It is not apparent that the need for mandibular reconstruction is urgent at present. For local care, we will recommend topical bordered foam to the area. It would be worthwhile reviewing records from if possible. [facility] [address] [place] [address] CONSULTATION Name: ALYSE STEVENS Room #: 226-P ADM IN M.R.#: [id number] Admission: 07/15/18 Attend Phys: Lesly Lauren Discharge: Date of : 42 Report #: [id number] will continue to follow while here in the hospital. I appreciate being asked to see her in consultation. <ELECTRONICALLY SIGNED> By: Remi Camarillo MD 07/19/18 1607 [id number] Remi Camarillo MD /nt
[2018-07-19 19:39] VITALS: BP 118/52
--- NOTE | 2018-07-20 06:43 | NUR ---
PATIENT ALERT AND ORIENTED X PERSON, PLACE AND SITUATION. CONFUSED TO WETHER DAY OR NIGHT. HAS COARSE BS AND A PRODUCTIVE COUGH. USES YONLERS TO SUCTION SELF. UP TO BSC WITH ASSIST OF 1. REMAINS NPO D/T ASPERATION. ACCUCHECKS WERE CHANGED FROM &HS TO Q6 BECAUSE SHE IS NPO AND ON GLUCERNA AT 60ML/HR. AT MIDNIGHT IT WAS 101 AND THIS AM WAS 106. HER RESIDUALS FOR 21, MN AND 06 WAS 0. SLEPT MOST OF NIGHT. C/O HEADACHE THIS AM, TYLENOL GIVEN PER PEG.
[2018-07-20 08:43] VITALS: BP 157/58
[2018-07-20] MEDS ORDERED: AUGMENTIN600 MG/5 M PO (09:02)
[2018-07-20] MEDS ORDERED: COZAAR 25 MG TA25 M1 PO (09:12)
[2018-07-20] MEDS ORDERED: GLUCOPHAGE500 MG PO (09:12)
--- NOTE | 2018-07-20 10:09 | NUR ---
DISCHARGE NOTE: FELIPE reviewed chart. Pt has discharge orders to go home with HH today. FELIPE left voice message for pt's son, Arnulfo ([phone]). FELIPE spoke with pt's dtr-in-law via phone to notify of discharge. Arnulfo will contact FELIPE to arrange transportation home and coordinate HH. Awaiting call back at this time. FELIPE is following to assist as needed with discharge planning.
[2018-07-20 10:34] VITALS: BP 157/58
--- NOTE | 2018-07-20 12:37 | NUR ---
WOUND FOLLOW UP: PT. WAS SEEN TODAY BY DR. CAVAZOS AND MYSELF. PT. WOUND IS STABLE AT THIS TIME. PT. WAS IN GOOD SPIRITS TODAY. RECOMMENDATIONS: CONTINUE WITH CURRENT PLAN OF CARE. PT. AND STAFF NURSE WERE INSTRUCTED ON PLAN OF CARE.
== END 2018-07-20 14:19 | disposition home health service (06) | DRG 177 ==
LOC: ER 11:26 → EROBS 13:54 → 4E 13:54 → SICU 07-16 21:15
PROVIDERS: Emergency Medicine; Nurse Practitioner Family; ADMIT Hospitalist
DX: J69.0 Pneumonitis due to inhalation of food and vomit (principal); G92 Toxic encephalopathy; M87.88 Other osteonecrosis, other site; K11.4 Fistula of salivary gland; R78.81 Bacteremia; R13.11 Dysphagia, oral phase; M62.84 Sarcopenia; E87.6 Hypokalemia; E74.39 Other disorders of intestinal carbohydrate absorption; J32.0 Chronic maxillary sinusitis; R73.9 Hyperglycemia, unspecified; T81.89XA Other complications of procedures, not elsewhere classified, initial encounter; Y83.8 Other surgical procedures as the cause of abnormal reaction of the patient, or of later complication, without mention of misadventure at the time of the procedure; B96.89 Other specified bacterial agents as the cause of diseases classified elsewhere; E78.5 Hyperlipidemia, unspecified; J44.9 Chronic obstructive pulmonary disease, unspecified; F41.9 Anxiety disorder, unspecified; M27.2 Inflammatory conditions of jaws; I10 Essential (primary) hypertension; E03.9 Hypothyroidism, unspecified; M81.0 Age-related osteoporosis without current pathological fracture; D63.8 Anemia in other chronic diseases classified elsewhere; Z85.810 Personal history of malignant neoplasm of tongue; Z93.1 Gastrostomy status; Z68.23 Body mass index [BMI] 23.0-23.9, adult; Z90.710 Acquired absence of both cervix and uterus; Z79.2 Long term (current) use of antibiotics; Z79.899 Other long term (current) drug therapy; Y92.89 Other specified places as the place of occurrence of the external cause; T66.XXXS Radiation sickness, unspecified, sequela
CPT/HCPCS: 10084; 15000

== ENCOUNTER 2018-08-12 12:38 | Emergency (ER) | payer OTHER ==
[~2018-08-12] VITALS: Ht 162.6 cm; Wt 47.6 kg
[~2018-08-12 12:38] MED LIST changes: +AUGMENTIN600 MG/5 M PO; +COZAAR 25 MG TA25 M1 PO; +GLUCOPHAGE500 MG PO; +NEURONTIN 300300 M1 PO
[2018-08-12 15:03] VITALS: BP 141/77
== END 2018-08-12 15:04 | disposition home or self-care (01) ==
LOC: ER 12:38
DX: S22.060A Wedge compression fracture of T7-T8 vertebra, initial encounter for closed fracture (principal); S01.01XA Laceration without foreign body of scalp, initial encounter; S60.221A Contusion of right hand, initial encounter; I10 Essential (primary) hypertension; E78.00 Pure hypercholesterolemia, unspecified; E03.9 Hypothyroidism, unspecified; E78.5 Hyperlipidemia, unspecified; Z90.710 Acquired absence of both cervix and uterus; Z87.891 Personal history of nicotine dependence; Z90.49 Acquired absence of other specified parts of digestive tract; Z85.810 Personal history of malignant neoplasm of tongue; W18.39XA Other fall on same level, initial encounter; Y92.89 Other specified places as the place of occurrence of the external cause; Y93.89 Activity, other specified; Y99.8 Other external cause status

== ENCOUNTER 2018-09-10 17:50 | Inpatient (IN) | payer OTHER ==
[~2018-09-10] VITALS: Ht 167.6 cm; Wt 55.6 kg
[2018-09-10] VITALS (14 sets, daily range): BP systolic 143–171; BP diastolic 81–105
--- NOTE | ~2018-09-10 | HC ---
[facility] [place] [address] CONSULTATION Name: AMYCaroleALYSE David Room #: 239-P ADM IN .R.#: [id number] Admission: 09/10/18 ������������������ Attend Phys: Gabino Blas MD Discharge: ������������������ Date of : 42 Report #: [id number] THIS REPORT FOR: //name// CC: Gabino GAMINO PCP DATE OF SERVICE: 09/15/2018 HISTORY OF PRESENT ILLNESS: The patient 78-year-old white female admitted with increased shortness of air, noted to have a fever of 102, diagnosed with multifocal pneumonia, influenza A and B, drndf-ty-aiisrgc respiratory failure, sepsis, non-ST elevation MD. She is currently in the Intensive Care Unit. She was followed by Infectious Disease is on IV vancomycin and Zosyn. Has been given Solu-Medrol. She has significant weakness and has had a decline with her functional abilities and we are seeing her in rehabilitation medicine consultation. She has the old PEG tube from throat cancer and has chronic dysphagia from the radiation. PAST MEDICAL HISTORY: As noted above. She has had a history of chronic aspiration. She apparently gave herself her own PEG tube feedings at home. There is a history of left jaw sinus infection. She has the prior history of tongue cancer status post radiation treatment. Hypertension, elevated cholesterol, hypothyroidism, depression. PAST SURGICAL HISTORY: Includes the above noted surgery, history of appendectomy, and hysterectomy. MEDICATIONS: Please see the full medication listing. This includes vitamins, herbals, and supplements per report. ALLERGIES: No known drug allergies. HABITS: Past history of tobacco abuse, 1-1/2 packs per day, quit in 1997. There is a history of alcohol usage, unknown amount of vodka that she takes via PEG tube per day. FAMILY HISTORY: Noncontributory. SOCIAL HISTORY: Lives in a house alone. No steps. Did not utilize gait aids. Apparently even did some driving in the community. She does have a caregiver, comes 2 times a week to do her IADLs, but she was able to do her own ADLs. Her son is noted to be a respiratory therapist, Arnulfo, here at [facility]. REVIEW OF SYSTEMS: Did not offer any current complaints of chest pain, shortness of breath, abdominal discomfort. No focal extremity pain complaints. [facility] [address] [place] [address] CONSULTATION Name: ALYSE STEVENS Room #: [address] [place] [address] [place] [facility].#: [id number] Admission: 09/10/18 ������������������ Attend Phys: Gabino Blas MD Discharge: ������������������ Date of : 42 Report #: [id number] No headache. No note of any bowel or bladder changes. Complains of significant weakness. This is noted to be generalized. PHYSICAL EXAMINATION: GENERAL: A 78-year-old white female seen in the Intensive Care Unit. VITAL SIGNS: Temperature is 97.8, pulse 67, respirations 15, blood pressure is 156/71. The patient is sleepy, but will easily arouse. FiO2 of per minute through the high flow nasal cannula. She is noted to have an evolving ARDS per Pulmonary. There was a note of some encephalopathy that has improved/resolved. She follows basic 1 step commands without difficulty. Thin, small statured, functional range of motion of the upper and lower extremities, would grade her strength at probably a 3+/5. DTRs are trace to 1. She does not have any distal lower extremity edema. Mod assist with sit to stand. She took a few steps mod assist. She is on high flow oxygen. ASSESSMENT: A 78-year-old white female with the following problem list: 1. 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 2. Encephalopathy appears improved/resolved. 3. Acute hypoxemic respiratory failure with evolving acute respiratory distress syndrome. She is on high flow nasal cannula. 4. Sepsis. 5. Multifocal pneumonia. 6. Influenza A and B. 7. Non-ST elevation myocardial infarction. 8. Transaminitis. 9. Past history of tongue cancer with radiation, dysphagia, and prior percutaneous endoscopic gastrostomy tube. 10. History of chronic aspiration. 11. Chronic left jaw sinus infection. 12. History of EtOH usage through percutaneous endoscopic gastrostomy tube. PLAN: The patient is continuing in the Intensive Care Unit. We are having therapies work with her. We are considering her for an acute in-hospital inpatient rehabilitation stay as she further medically stabilizes. We will be glad to follow along with you regarding her rehab therapy needs. ��������������������������������������������� ���������������������������������������� By: ��������������������������������������������� 1114 13 Renato Coello MD /PMT
--- NOTE | ~2018-09-10 | HC ---
[facility] [place] [address] CONSULTATION Name: ALYSE STEVENS Room #: 216-P [facility] IN .R.#: [id number] Admission: 09/10/18 ������������������ Attend Phys: Gabino Blas MD Discharge: ������������������ Date of : 42 Report #: [id number] THIS REPORT FOR: //name// CC: Gabino Blas [facility] DATE OF SERVICE: 09/18/2018 NEUROBEHAVIORAL STATUS EXAM: ATTENDING PHYSICIAN: Lorenzo Blas MD. CPR AMBULANCE DRIVER: Tonny Campo, PhD. CLINICAL PRESENTATION: The patient is a 78-year-old female admitted to the [facility] for evaluation and treatment of shortness of air and mental status changes. The patient was diagnosed with a critical illness myopathy, acute hypoxemic respiratory failure with evolving acute respiratory distress syndrome and encephalopathy. The encephalopathy appeared to be improving. Her diagnoses included sepsis, multifocal pneumonia, influenza A and B, non-ST elevation myocardial infarction, transaminitis, history of tongue cancer with radiation, dysphagia and a percutaneous endoscopic gastrostomy tube, chronic aspiration, left jaw sinus infection and a history of alcohol abuse through percutaneous endoscopic gastrostomy tube. A complete description of her medical condition and history along with medications can be found in her medical record. Neuropsychological consultation was requested to provide assistance in the assessment of cognitive and emotional status and to provide recommendations and services. Prior to this most recent admission, she was living alone in her own home. She has a caregiver that is available 3 days a week. The patient has one child. Her son is a respiratory therapist at the Medical Center. The patient is a high school graduate. 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 The patient is reported to have been independent with instrumental activities of daily living and including driving. The patient was an only child. TECHNIQUES UTILIZED: Clinical interview, review of medical records, staff consultation and behavioral observation, family interview -- son and mini mental status exam 2 standard version, clock drawing, category fluency assessment and brief abstract reasoning test. EXAMINATION FINDINGS: The patient was alert and cooperative with the assessment. She accurately described events surrounding her admission. [facility] [address] [place] [address] CONSULTATION Name: ALYSE STEVENS Room #: 216-P [facility] IN ..#: [id number] Admission: 09/10/18 ������������������ Attend Phys: Gabino Blas MD Discharge: ������������������ Date of : 42 Report #: [id number] patient has amnesia during her initial admission. Her history includes 2 falls within the last 2 months. She fell about 8 weeks ago, striking the back of her head and fell 2 weeks later, striking her face. The patient has a history of alcohol abuse. She had discontinued alcohol last year, but following her 's appears to have started to increase its use. Her son is concerned about the excessive use of alcohol. However, he is unaware of her medications and the patient has been managing them independently. The patient has been also taking alprazolam. She describes her symptoms to include memory, word finding, anxiety and depression. She also reports tiredness and fatigue. She states that sleep is good with medication. Her performance on the MMSE 2 brief version is in the mild range of impairment with a raw score of 13 of 16 and a T score of 37. She was 3/3 for initial registration, 5/5 for orientation to time and place. She was 0/3 for immediate recall of 3 items after a brief time delay and distraction. Performance on the MMSE 2 standard version was in the mild range of impairment with a raw score of 23/30 and a T score of 35. She was 2/5 for serial sevens, 2/2 for naming, 1/1 for repetition, 3/3 for auditory comprehension, 1/1 for reading and 1/1 for writing. The patient had difficulty in copying a simple geometric design. Her performance with a T score of 35 is at the 7th percentile. Performance was within normal limits on clock drawing. Category fluency was in the borderline range with a raw score of 9 and a T score of 34, which is at the 5th percentile. Brief abstract reasoning test was in the impaired range with a score of 5/8. The patient is presenting with a history of alcohol abuse and current use of alcohol. Her son is unaware of the dosing of alcohol that she is putting in her gastrostomy tube. Current presentation suggests deficits in memory and concentration along with visual spatial organization. Two previous falls may have contributed to a concussive episode if alcohol was on board contributing to bleeding potential. DIAGNOSTIC IMPRESSION: 1. 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 2. Alcohol use disorder -- persistent. 3. Unspecified depressive disorder with anxiety. RECOMMENDATIONS: The patient should discontinue use of alcohol. Her son will [facility] [address] [place] [address] CONSULTATION Name: ALYSE STEVENS Room #: 216-P [facility] IN M.R.#: [id number] Admission: 09/10/18 ������������������ Attend Phys: Gabino Blas MD Discharge: ������������������ Date of : 42 Report #: [id number] need to provide assistance in the management of her medication. The use of an antidepressant medication with anxiolytic features may be of benefit to assist in overall adjustment. A followup neuropsychological evaluation approximately 4 weeks after her discharge from the hospital will help clarify the severity of her cognitive disorder. Medication with sedating features that have the potential for addiction for example, lorazepam and alprazolam should be used very cautiously given her history of alcohol abuse. Speech therapy may be of benefit to assist in compensatory strategies for memory and concentration. Thank you very much for allowing me to provide the consultation on this patient. ��������������������������������������������� ���������������������������������������� By: ��������������������������������������������� [id number] Tonny Campo, PhD /nt
[2018-09-10 18:30] LABS: HEMATOCRIT 32.4 % (37.0-47.0); HEMOGLOBIN 11.1 gm/dL (12.0-15.0); MCH 33.8 pg (26.0-34.0); MCHC 34.2 g/dL (28.0-37.0); MCV 98.8 fL (80.0-100.0); PLATELET COUNT 222 thou/uL (150-400); RBC 3.28 mil/uL (4.20-5.00); RDW 19.2 % (10.5-14.5); WBC 6.4 thou/uL (4.0-11.0)
[2018-09-10 18:34] LABS: CALCIUM 9.8 mg/dL (8.5-10.1); CREATININE 0.7 mg/dL (0.6-1.0); POTASSIUM 3.1 mmol/L (3.5-5.1)
[2018-09-10 18:36] LABS: URINE BILIRUBIN NEGATIVE (Negative); URINE BLOOD 2+ (Negative); URINE CLARITY CLEAR; URINE COLOR YELLOW; URINE GLUCOSE-RANDOM* NEGATIVE (Negative); URINE KETONES NEGATIVE (Negative); URINE LEUKOCYTES-REFLEX NEGATIVE (Negative); URINE NITRITE-REFLEX NEGATIVE (Negative); URINE PROTEIN (DIPSTICK) 2+ (Negative); URINE SPECIFIC GRAVITY 1.015 (1.005-1.035); URINE UROBILINOGEN 0.2 E.U./dl (0.2-1.0)
[2018-09-10 18:43] LABS: BACTERIA-REFLEX 1-9 Few /HPF (None Seen); CASTS None Seen /LPF (None Seen); CRYSTALS None Seen /LPF (None Seen); SQUAMOUS 0-3 Few /LPF (0-3); URINE RBC 0-2 Rare /HPF (0-2); URINE WBC-REFLEX 0-5 Rare /HPF (0-5)
[2018-09-10 18:43] LABS: APTT 26.7 Seconds (24.5-32.8); INR 1.1; PROTIME 11.8 Seconds (9.3-11.4)
[2018-09-10 18:48] LABS: ABSOLUTE NEUTROPHILS 5.8 thou/uL (1.4-8.2)
[2018-09-10 18:48] LABS: AMP/METHAMP Negative (Negative); BARBITURATES Negative (Negative); BENZODIAZEPINES Negative (Negative); COCAINE Negative (Negative); METHADONE Negative (Negative); OPIATES POSITIVE (Negative); PCP Negative (Negative)
[2018-09-10 18:51] LABS: BE(vivo) 6.4 mmol/L (-2 to +3); HCO3 29.5 mmol/L (22.0-26.0); PCO2 36.9 mmHg (35.0-45.0); PO2 58.3 mmHg (80.0-100.0); pH 7.521 (7.360-7.450); sO2 92.9 % (92.0-98.0)
[2018-09-10 18:54] LABS: ALBUMIN 2.9 g/dL (3.4-5.0); MAGNESIUM 1.8 mg/dL (1.8-2.4); TOTAL BILIRUBIN 0.7 mg/dL (<0.1-1.0)
[2018-09-10 18:57] LABS: TROPONIN-I 2.55 ng/mL (<0.06)
--- NOTE | 2018-09-10 20:30 | NUR ---
Pt arrived ICU via cart accomapnied with RT,ER staff and her son to room 239. She is being admit for Resp. alkalosis,Asp PNA,Elevated Trop, Influenza and Lactic acidosis. She is currently on BIPAP. She is appears to be tachypneic up on arrival. O2 sat 100% on 75% ofr FiO2. Lung sound coarse crackle in lower bases of her both. Her breathing status has improved significantly per ER stafff report. NSR on monitor. She denies of any CP or chest discomfort. Elevate of temp notes. Blood cultures were done in ER. Hx obtained from her son. Assessments are completed. See electronic charting. Care plans are initiates. Continue working towards goals.
--- NOTE | 2018-09-10 20:30 | NUR ---
Pt arrived ICU via stretcher. She is accompanied with ER staff, RT and her son who is DPOA. She appears to be SOA . On BIPAP at this time. Per ER report her breathing has been improved since placed her on BIPAP. O2 sat 100% notes upon arrival. Denies of any CP or chest discomfort. BP stable. She is febrile notes. She had temp of 101.3 F. No antipyretric has been given in ER or home. Hx obtains /medications updates. Assessments cares are completed. COntinue working toward goals.
[2018-09-10 21:16] LABS: BE(vivo) 3.9 mmol/L (-2 to +3); PCO2 35.3 mmHg (35.0-45.0); PO2 139.3 mmHg (80.0-100.0); pH 7.501 (7.360-7.450)
[2018-09-10] MEDS ORDERED: MELATONIN5 M1 PO (22:03)
[2018-09-10] MEDS ORDERED: NORTRIPTYLINE H50 M3 PO (22:05)
[2018-09-10] MEDS ORDERED: NEURONTIN 300300 M1 PO (22:05)
[2018-09-10] MEDS ORDERED: VITAMIN B-12500 MCG PO (22:06)
[2018-09-10] MEDS ORDERED: IRON325 PER TUBE (22:08)
[2018-09-10] MEDS ORDERED: MAGOX 400400 MG PER TUBE (22:09)
[2018-09-10] MEDS ORDERED: XANAX 0.5 MG0.5 MG PER TUBE (22:13)
[2018-09-11] VITALS (30 sets, daily range): BP systolic 118–151; BP diastolic 60–85
--- NOTE | 2018-09-11 | NUR ---
Pt with no urine output since arrive in ICU. ABD distended, bladder palpated. Bladder scan obtained and it was >999 cc per scanner. Ocampo cath was placed by me per sterile technique with some difficulty noted. Dark ysabel urine > 1000 cc returned. No s/sx of trauma indicates. She is sheila procedure well. Will notify physician radiation oncologist regarding of my actions.
--- NOTE | 2018-09-11 02:37 | NUR ---
Pt is unable to voice. Bladder palpated and distended. Bladder scan obtained and it was>999 cc per scanner. RN placed cohen cath per sterile technique, dark ysabel urine returned>1000 cc. No s/sx of injury or trauma indicates. Notified Gabriella King about finding; see new order.
[2018-09-11 05:39] LABS: ABSOLUTE NEUTROPHILS 5.3 thou/uL (1.4-8.2); BASOPHILS 0.2 % (0.0-2.0); EOSINOPHILS 1.7 % (0.0-3.0); HEMATOCRIT 32.9 % (37.0-47.0); LYMPHOCYTES 3.7 % (24.0-44.0); MCH 33.7 pg (26.0-34.0); MCHC 33.3 g/dL (28.0-37.0); MCV 101.1 fL (80.0-100.0); MONOCYTES 7.4 % (1.0-8.0); PLATELET COUNT 193 thou/uL (150-400); RBC 3.25 mil/uL (4.20-5.00); RDW 19.1 % (10.5-14.5); WBC 6.1 thou/uL (4.0-11.0)
[2018-09-11 05:57] LABS: CALCIUM 8.7 mg/dL (8.5-10.1); CREATININE 0.8 mg/dL (0.6-1.0); MAGNESIUM 1.9 mg/dL (1.8-2.4); POTASSIUM 3.6 mmol/L (3.5-5.1)
[2018-09-11 06:00] LABS: TROPONIN-I 1.84 ng/mL (<0.06)
--- NOTE | 2018-09-11 07:00 | NUR ---
Pt remains stable in this shift. Required less oxygen via BIPAP. Her WOB also much more improving. Report hand off to am shift RN.
--- NOTE | 2018-09-11 10:59 | EKG ---
[address] [place] [address] ELECTROCARDIOGRAM REPORT Name: ALYSE STEVENS Room #: 239-P ADM IN M.R.#: [id number] ������������������ Admission: 09/10/18 ������������������ Attend Phys: Pola Hoang MD Discharge: ������������������ Date of : 44 Report #: [id number] ����������������������������������������������������������������� [id number] THIS REPORT FOR: //name// [facility] ED Test Date: 2018-09-10 Test Time: 17:55:52 Pat Name: ALYSE STEVENS Department: Room: 239 Gender: F Auto Hiker: WG : 1940 Requested By: Rafael Womack Order Number: [id number] MD: Jon Decker Measurements Intervals [place] Rate: 97 P: 68 MI: 143 QRS: -23 QRSD: 103 T: -17 QT: 399 QTc: 507 Interpretive Statements Sinus rhythm Probable left atrial enlargement Borderline left axis deviation Nonspecific repol abnormality, diffuse leads Prolonged QT interval Compared to ECG 07/15/2018 11:47:40 Early repolarization now present Prolonged QT interval now present Left ventricular hypertrophy no longer present Electronically Signed On 09-11-2018 10:58:43 CDT by Jon Decker [email or web address] ��������������������������������������������� <ELECTRONICALLY SIGNED> ���������������������������������������� By: Jon Decker MD ��������������������������������������������� 09/11/18 1058 1755 1755 Jon Decker MD /EPI
--- NOTE | 2018-09-11 11:36 | 2DMMODE ---
[facility] [place] [address] 2 D/M-MODE ECHOCARDIOGRAM Name: ALYSE STEVENS Room #: 239-P ADM IN M.R.#: [id number] ������������� Admission: 09/10/18 ������������� Attend Phys: Pola Hoang MD Discharge: ��� ������������� ��� Date of : 44 Date of Service: 09/11/18 1136 �� Report #: [id number] �������� ��������������������������������������������[id number] THIS REPORT FOR: //name// APPROVED REPORT Study performed: 09/11/2018 08:16:47 EXAM: Comprehensive 2D, Doppler, and color-flow Echocardiogram Patient Location: Bedside Room #: 239 Status: routine BSA: 1.58 HR: 75 bpm BP: 122/66 mmHg Rhythm: NSR Other Information Study Quality: Adequate Indications SOA, pneumonia, Hx. HTN, Hx. high cholesterol 2D Dimensions RVDd: 40.72 mm IVSd: 8.68 (7-11mm) LVOT Diam: 20.16 (18-24mm) LVDd: 44.96 mm PWd: 10.72 (7-11mm) Ascending Ao: 34.55 (22-36mm) LVDs: 33.91 (25-40mm) Aortic Root: 34.33 mm IVC: 21.00 mm Volumes Left Atrial Volume (Systole) Single Plane 4CH: 36.60 mL Single Plane 2CH: 31.95 mL LA ESV Index: 23.44 mL/m2 Aortic Valve AoV Peak Dereck.: 1.14 m/s AO Peak Gr.: 5.25 mmHg LVOT Max P.96 mmHg LVOT Max V: 0.86 m/s SAMSON Vmax: 2.41 cm2 Mitral Valve E/A Ratio: 0.6 MV Decel. Time: 183.13 ms MV E Max Dereck.: 0.48 m/s [facility] [place] [address] 2 D/M-MODE ECHOCARDIOGRAM Name: ALYSE STEVENS Room #: 239-P [facility] IN .R.#: [id number] ������������� Admission: 09/10/18 ������������� Attend Phys: Pola Hoang MD Discharge: ��� ������������� ��� Date of : 44 Date of Service: 09/11/18 1136 �� Report #: [id number] �������� ��������������������������������������������[id number] MV A Dereck.: 0.80 m/s MV PHT: 53.11 ms IVRT: 166.09 ms Pulmonary Valve PV Peak Dereck.: 0.81 m/s PV Peak Gr.: 2.63 mmHg Pulmonary Vein P Vein S: 0.62 m/s P Vein A: 0.29 m/s P Vein D: 0.41 m/s P Vein A Dur.: 145.3 msec P Vein S/D Ratio: 1.51 Tricuspid Valve RAP Estimate: 5.00 mmHg Left Ventricle The left ventricle is normal size. There is normal left ventricular wall thickness. Left ventricular systolic function is mildly decreased. LVEF is 45%. Mild diastolic dysfunction is present (impaired relaxation pattern). Right Ventricle The right ventricle is normal size. The right ventricular systolic function is normal. Atria Left atrium is mildly dilated. The right atrium size is normal. Aortic Valve The Aortic valve is sclerotic, trileaflet. Mild aortic regurgitation. There is no aortic valvular stenosis. Mitral Valve Mitral valve leaflets are mildly thickened. Mild to moderate mitral regurgitation. No evidence of mitral valve stenosis. Tricuspid Valve The tricuspid valve is normal in structure. Unable to assess PA pressure due to lack of tricuspid regurgitation. Pulmonic Valve The pulmonary valve is normal in structure. Mild pulmonic regurgitation. Great Vessels [facility] [address] [place] [address] 2 D/M-MODE ECHOCARDIOGRAM Name: CORINEALYSE Room #: 239-P [facility] IN .R.#: [id number] ������������� Admission: 09/10/18 ������������� Attend Phys: Pola Hoang MD Discharge: ��� ������������� ��� Date of : 44 Date of Service: 09/11/18 1136 �� Report #: [id number] �������� ��������������������������������������������[id number] The aortic root is normal in size. The ascending aorta is normal in size. IVC is normal in size and collapses >50% with inspiration. Pericardium There is no pericardial effusion. <Conclusion> The left ventricle is normal size. There is normal left ventricular wall thickness. Left ventricular systolic function is mildly decreased. LVEF is 45%. Mild diastolic dysfunction is present (impaired relaxation pattern). The right ventricle is normal size. Left atrium is mildly dilated. The Aortic valve is sclerotic, trileaflet. Mild aortic regurgitation. Mild to moderate mitral regurgitation. ��������������������������������������������� <ELECTRONICALLY SIGNED> ���������������������������������������� By: Jon Decker MD ��������������������������������������������� 09/11/18 1136 1136 1136 Jon Decker MD /INF
--- NOTE | 2018-09-11 18:43 | NUR ---
END OF SHIFT NOTE. PT TOLORATING NASAL CANNULA. PT WORKED WITH PT. LUCRECIA. BM X 2
--- NOTE | 2018-09-11 22:13 | NUR ---
PT REQUESTED TO HAVE XANAX AT HS WHICH SHE USUALLY TAKES AT HOME. NOTIFIED SHIRA CLARKE; SEE NEW ORDER .
[2018-09-12] VITALS (23 sets, daily range): BP systolic 111–156; BP diastolic 55–86
--- NOTE | 2018-09-12 04:51 | NUR ---
No event tonight. Pt remains stable in this shift. Continue to be on BIPAP at HS. She is sheila TF well, increased Vital AF 1.2 ida to 50 cc w/o any problem. She denies of any GI discomfort. VSS. Slowly progressing toward goals.
--- NOTE | 2018-09-12 06:12 | NUR ---
Notified SHIRA Mcconnell regarding of low UO. No new order at this time.
[2018-09-12 06:41] LABS: ALBUMIN 1.8 g/dL (3.4-5.0); CALCIUM 8.2 mg/dL (8.5-10.1); CREATININE 0.6 mg/dL (0.6-1.0); POTASSIUM 3.6 mmol/L (3.5-5.1); TOTAL BILIRUBIN 0.3 mg/dL (<0.1-1.0); TOTAL PROTEIN 5.7 g/dL (6.4-8.2)
[2018-09-12 08:56] LABS: HEMATOCRIT 30.7 % (37.0-47.0); HEMOGLOBIN 10.5 gm/dL (12.0-15.0); MCH 34.5 pg (26.0-34.0); MCHC 34.1 g/dL (28.0-37.0); MCV 101.2 fL (80.0-100.0); RBC 3.03 mil/uL (4.20-5.00); RDW 19.1 % (10.5-14.5); WBC 8.3 thou/uL (4.0-11.0)
--- NOTE | 2018-09-12 18:25 | NUR ---
END OF SHIFT NOTE. PT OOB TO CHAIR TODAY. VSS. STILL COARSE BS. 8L HIGH FLOW CANNULA. BM X 2
[2018-09-13] VITALS (23 sets, daily range): BP systolic 124–170; BP diastolic 63–95
[2018-09-13 02:32] LABS: BE(vivo) 1.2 mmol/L (-2 to +3); HCO3 24.4 mmol/L (22.0-26.0); PCO2 33.9 mmHg (35.0-45.0); PO2 61.4 mmHg (80.0-100.0); pH 7.475 (7.360-7.450); sO2 93.2 % (92.0-98.0)
--- NOTE | 2018-09-13 05:43 | NUR ---
pt with increased coarse cough thru the noc, pt tried bipap for about 45 min and stated she wanted off, not able to keep sats greater than 88% rt notified, pt then on 15L/HF and 50% venti mask, sats 88 to 90 %, abg drawn and cxr done dr wong called rt tx's ordered, and different masks tried, 40 iv lasix given, iv flids con't to infuse. will con't to monitor per ppoc.
[2018-09-13 05:56] LABS: HEMATOCRIT 32.3 % (37.0-47.0); HEMOGLOBIN 10.5 gm/dL (12.0-15.0); MCH 33.1 pg (26.0-34.0); MCHC 32.6 g/dL (28.0-37.0); MCV 101.4 fL (80.0-100.0); RBC 3.18 mil/uL (4.20-5.00); RDW 18.9 % (10.5-14.5); WBC 11.3 thou/uL (4.0-11.0)
[2018-09-13 06:05] LABS: CALCIUM 8.2 mg/dL (8.5-10.1); CREATININE 0.6 mg/dL (0.6-1.0); POTASSIUM 3.8 mmol/L (3.5-5.1)
--- NOTE | 2018-09-13 07:53 | NUR ---
Dr Lozano notified of pts sats and vs at 0600, pt remains comfortable TF on Hold, o2 sats 89 to 90% on 75% nonrebreather, report given to next shift to con't pppoc.
--- NOTE | 2018-09-13 09:34 | NUR ---
Recommend final goal of vital AF 1.2 tube feeding to 55ml/hr. Defer any water flush need to physician
--- NOTE | 2018-09-13 09:41 | HC ---
[facility] [place] [address] CONSULTATION Name: HILDAALYSE David Room #: 239-P ADM IN ..#: [id number] Admission: 09/10/18 ������������������ Attend Phys: Gabino Blas MD Discharge: ������������������ Date of : 42 Report #: [id number] THIS REPORT FOR: //name// CC: NO YUDELKA Hoang DATE OF SERVICE: 09/12/2018 INFECTIOUS DISEASE CONSULTATION CONSULTATION REQUESTED BY: Dr. Blas. REASON FOR CONSULTATION: Antibiotic management. HISTORY OF PRESENT ILLNESS: The patient is a 78-year-old white woman found on the Emergency Room to be febrile. She is positive for influenza A and B and her chest x-ray reveals pneumonia. 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 The patient has percutaneous gastrostomy and she is n.p.o. because of aspiration. At present in the ICU on broad-spectrum antibiotic coverage and appears to be stable on BiPAP. PAST MEDICAL HISTORY: Hypertension. Dyslipidemia. Hypothyroidism. Cancer of the tongue, status post surgical intervention, chemotherapy and radiation therapy. Chronic aspiration requiring percutaneous gastrostomy, previous hysterectomy, appendectomy. DRUG ALLERGIES: None listed. MEDICATIONS: The patient is on alprazolam, enoxaparin, nortriptyline, methylprednisolone 62.5 mg IV twice daily, aspirin, calcium carbonate, vitamin D, docusate, docosahexaenoic acid, vancomycin 500 mg IV every 12 hours, levothyroxine, pantoprazole, metoclopramide, Zosyn 3.375 grams IV every 8 hours, Atrovent and albuterol inhalation treatment, insulin lispro per sliding scale, p.r.n. glucose glucagon, p.r.n. ibuprofen, gabapentin, trazodone, oseltamivir phosphate 75 mg p.o. b.i.d. for 5 days. FAMILY HISTORY: See H and P, old records. REVIEW OF SYSTEMS: See H and P, old records. PHYSICAL EXAMINATION: GENERAL: Chronically ill-appearing woman. VITAL SIGNS: Temperature 101.3 on 09/10/2018 at 2112 hours. Today's temperature 98.9, pulse 89, respirations 22, BP 142/78, O2 saturation 99% on BiPAP, FIO2 of 55%. [address] [address] CONSULTATION Name: ALYSE STEVENS David Room #: 239-[facility] IN .R.#: [id number] Admission: 09/10/18 ������������������ Attend Phys: Gabino Blas MD Discharge: ������������������ Date of : 42 Report #: [id number] HEENT: Pupils small. Mouth: Dry mucous membrane. Status post surgical intervention on the left side of the face. There is a sinus tract around the left jaw. NECK: Status post neck dissection. CHEST: Revealed tattoos indicated previous radiation therapy. LUNGS: Few rhonchi, crackles at bases posteriorly left. HEART: S1, S2. No gallop or murmur. ABDOMEN: Infraumbilical laparotomy scar. Percutaneous gastrostomy. Soft. No masses or megaly. PELVIC AND RECTAL: Deferred. EXTREMITIES: No clubbing, cyanosis. NEUROLOGIC: Grossly within normal limits. LABORATORY DATA: Sodium 138, potassium 3.6, chloride 102, CO2 of 28, BUN 17, creatinine 0.8, glucose 171, SGOT significantly elevated at 7691, SGPT markedly elevated at 3220, bilirubin normal, alkaline phosphatase normal. Albumin 2.9 g/dL. Lactic acid was elevated at 3 millimoles per liter on admission. Troponin mildly elevated 2.55. NT-proBNP 9050. C-reactive protein 243.1 mg/L. Drug screen positive for opiates. WBC 6100, hemoglobin 11 g/dL, MCV elevated at 101, platelets 193,000. White blood cell count differential yesterday on the admission day revealed 71% segmented neutrophils, 20% bands. The influenza rapid test positive for influenza A and B. The MRSA by PCR is negative. The urinalysis revealed 2+ protein, 2+ blood, 1-9 bacteria per HPF. Arterial blood gases on 09/10/2018 revealed pH 7.50, pCO2 35.3 pO2 of 139, bicarbonate 27, lactate 2.75, mildly elevated. These set of gases is on FiO2 of 75% and PEEP of 8 and pressure support of 16. MICROBIOLOGY DATA: Blood cultures were obtained on the date of admission and they remained negative so far. Culture of the sinus tract is pending at the time of this dictation. RADIOLOGY EVALUATION: Abdominal ultrasound in view of abnormal liver function test revealed liver of normal sign. No evidence of intrahepatic or extrahepatic bile duct dilatation. Gallbladder normal in size and configuration. Chest x-ray on admission revealed dense left lung infiltrate on the upper lobe and left mid lung area and patchy infiltrate on the right lower lobe. ASSESSMENT: 1. Influenza A and B. 2. Bilateral possible aspiration pneumonia. 3. Possible recurrent aspiration. 4. History of carcinoma of the tongue, status post surgery, chemotherapy and radiation therapy. 5. Abnormal liver enzymes, question shock liver. 6. Malnutrition. [address] [address] CONSULTATION Name: ALYSE STEVENS Room #: 239-P ADM IN .Carole.#: [id number] Admission: 09/10/18 ������������������ Attend Phys: Gabino Blas MD Discharge: ������������������ Date of : 42 Report #: [id number] SUGGESTIONS AND RECOMMENDATION: The patient appears quite stable at present time. Consequently recommend continuation of treatment with current antibiotics including Zosyn, vancomycin and oseltamivir. We will streamline antibiotic regimen pending culture results. Dr. Blas, thank you for requesting my suggestions. ��������������������������������������������� <ELECTRONICALLY SIGNED> ���������������������������������������� By: Noah Salmeron MD ��������������������������������������������� 09/13/18 0941 0651 1020 Noah Salmeron MD /nt
[2018-09-13 13:07] LABS: HAV IgM AB (ANTI-HAV IgM) Negative (Negative); HEPATITIS B SURFACE AG Negative (Negative); HEPATITIS C VIRUS AB <0.1 (0.0-0.9)
--- NOTE | 2018-09-13 15:23 | NUR ---
PT CONT ON 15L HIGH FLOW NC AND 15L NONREBREATHER MASK. PT AND PT'S SON REQUESTED THAT THEY GET A NEW HOSPITALIST AND DID NOT WANT DR AMIN TO RETURN. CALL PLACED TO DR OSORIO WHO AGREED TO HAVE PT SEEN BY A DIFFERENT HOSPITALIST TOMORROW.
[2018-09-13 21:39] LABS: HEMATOCRIT 33.5 % (37.0-47.0); HEMOGLOBIN 10.9 gm/dL (12.0-15.0); MCH 32.7 pg (26.0-34.0); MCHC 32.6 g/dL (28.0-37.0); MCV 100.4 fL (80.0-100.0); RBC 3.33 mil/uL (4.20-5.00); RDW 18.8 % (10.5-14.5); WBC 11.8 thou/uL (4.0-11.0)
[2018-09-13 22:13] LABS: ALBUMIN 2.9 g/dL (3.4-5.0); CALCIUM 8.6 mg/dL (8.5-10.1); CREATININE 0.7 mg/dL (0.6-1.0); MAGNESIUM 1.5 mg/dL (1.8-2.4); TOTAL BILIRUBIN 0.6 mg/dL (<0.1-1.0); TOTAL PROTEIN 6.2 g/dL (6.4-8.2)
[2018-09-13 22:15] LABS: POTASSIUM 2.8 mmol/L (3.5-5.1)
[2018-09-14] VITALS (24 sets, daily range): BP systolic 129–157; BP diastolic 55–79
--- NOTE | 2018-09-14 02:46 | NUR ---
SHIFT NOTE ASSESSMENT AND VS PER CHARTING. PT TURNED Q2H AND PRN. PT BATHED AND LINENS CHANGED. PT CRITICAL LAB VALUES CALLED TO [employer]ET MA[employer] VAMP CUT OUT WORKER. PT BECAME LESS CONFUSED AND AGGITATED THOUGH OUT SHIFT. PT HAD NO S/SX OF PAIN, SOA, CHEST PAIN, OR NV. WILL CONTINUE TO MONITOR.
[2018-09-14 05:15] LABS: BE(vivo) 6.6 mmol/L (-2 to +3); HCO3 30.4 mmol/L (22.0-26.0); PO2 73.2 mmHg (80.0-100.0); pH 7.498 (7.360-7.450); sO2 95.8 % (92.0-98.0)
[2018-09-14 08:47] LABS: CALCIUM 8.5 mg/dL (8.5-10.1); CREATININE 0.6 mg/dL (0.6-1.0); MAGNESIUM 2.1 mg/dL (1.8-2.4); POTASSIUM 3.1 mmol/L (3.5-5.1)
--- NOTE | 2018-09-14 14:35 | NUR ---
CM ASSESSMENT: CASE OPENED FOR DC PLANNING. CLINICAL INFO REVIEWED. PT ADMITTED WITH ASPIRATION PNEUMONIA ELEVATED TROPONIN AND FEVER AND FOUND PPOSITIVE FOR FLU A AND B. ALERT AND ORIENTED, SURRNETLY RESTLY WITH EYES CLOSED. ON VAPOTHERM O2 70 % FIO2 AND 55 LITERS OF FLOW. PT'S SON/DPOA BRONWYN IS AN RT HERE AT [facility] AND SPOKE WITH HIM. BRITTANY INDICATES PT LIVES ALONE IN HOUSE, INDEPENDENT WITH ADLS, DRIVES WHEN FEELS GOOD. HX TONGU CA WITH TRACT TO JAW AND LIKELY CHRONIC OSTEO AND ON SUPPRESSIVE TREATMENT. RECOMMENDATION FOR NPO AND HAS PEG WITH FEEDINGS AT HOME. PT HAS HOME O2 THRU PROVIDER PLUS. PT HAS USED [facility] FOR HOME HEALTH IN PAST. SON IS INTERESTED IN [facility]UTE RE[facility] IF PT MEETS CRITERIA AND REFERRAL ORDERED AFTER UPDATE TO DR. MEDEL. WORKING WITH PT/OT AND DAVID FOLLOW TO ASSIST WITH COORDINATION OF DC NEEDS.
--- NOTE | 2018-09-14 19:00 | NUR ---
ASSESSMENTS AND VITAL SIGNS DOCUMENTED. SHE WAS IMPULSIVE TODAY AND GOT TO THE SINK AND DRANK WATER. CHAIR ALARM WAS ON AND DID ALARM WHEN SHE STOOD UP. SHE IS ALERT AND ORIENTED. NURSE PROVIDED REEDUCATION IN REGARDS TO NO DRINKING WATER AT THIS TIME WITH THE HIGHER LEVELS OF OXYGEN. SHE EXPRESSED SHE UNDERSTOOD, HOWEVER REPEATED THIS TWICE. INTAKE AND OUTPUT DOCUMENTED. SHE SAT IN THE CHAIR FOR A WHILE TODAY AND WORKED WITH PT/OT. SHE WAS QUITE STRONG GETTING BACK TO BED THIS AFTERNOON. OXYGEN IS BEING TITRATED BY RT INDICATED. SHE IS TOLERATING LOWER LEVELS OF OXYGEN ADMINISTRATION. PLAN IS TO CONTINUE TO MONITOR PATIENT ASSESSMENTS AND VITAL SIGNS PER PROTOCOL AND OCNTINUE TO WEAN DOWN ON THE OXYGEN ADMINISTRATION.
[2018-09-15] VITALS (25 sets, daily range): BP systolic 139–176; BP diastolic 68–96
[2018-09-15 12:15] LABS: HEMATOCRIT 30.8 % (37.0-47.0); HEMOGLOBIN 10.1 gm/dL (12.0-15.0); MCH 33.1 pg (26.0-34.0); MCHC 32.8 g/dL (28.0-37.0); MCV 101.1 fL (80.0-100.0); RBC 3.04 mil/uL (4.20-5.00); RDW 19.4 % (10.5-14.5)
[2018-09-15 12:24] LABS: CALCIUM 8.7 mg/dL (8.5-10.1); CREATININE 0.6 mg/dL (0.6-1.0); POTASSIUM 3.6 mmol/L (3.5-5.1)
--- NOTE | 2018-09-15 19:04 | NUR ---
PATIENT REMAINS ON OPTIFLOW OXYGEN SUPPORT. SHE DESATS WHEN SHE INTERMITTENTLY TAKES IT OFF TO BLOW HER NOSE. DRESSING ON HER FACE WAS CHANGED DUE TO SATURATION. SHE IS ALERT AND ORIENTED, ASSESSMENTS DOCUMENTED. PLAN IS TO EXCHANGE PEG TUBE TOMORROW. HOLD LOVENOX TONIGHT. SHE SAT IN THE CHAIR TODAY AND WORKED WITH PT/OT. SHE HAD TWO BOWEL MOVEMENTS TODAY THAT WERE THINNER THAN PUDDING CONSISTENCY. TUBE FEEDING TO BE ON HOLD STARTING AT MIDNIGHT TONIGHT. REPORT GIVEN TO THE SENIOR MEDIA PLANNER RN FOR CONTINUATION OF CARE.
[2018-09-16] VITALS (18 sets, daily range): BP systolic 136–177; BP diastolic 50–101
[2018-09-16 04:27] LABS: CALCIUM 8.9 mg/dL (8.5-10.1); CREATININE 0.5 mg/dL (0.6-1.0); POTASSIUM 3.2 mmol/L (3.5-5.1)
--- NOTE | 2018-09-16 15:19 | NUR ---
PT ALERT AND ORIENTED TIMES THREE WITH PERIODS OF CONFUSION. BP ELEVATED FOR SOME PART OF THE SHIFT MEDS GIVEN BP NOW 136/50. OTHER VSS. PT REMAINS ON OPITFLOW SATS 98%. PT REMAINS NPO FOR PEG TUBE REPLACEMENT TODAY. PT DENIES PAIN. WILL CONTINUE TO MONITOR.
[2018-09-16 16:08] LABS: ADENOVIRUS Negative (Negative); INFLUENZA A Negative (Negative); INFLUENZA B Negative (Negative); METAPNEUMOVIRUS Negative (Negative); PARAINFLUENZA 1 Negative (Negative); PARAINFLUENZA 2 Negative (Negative); PARAINFLUENZA 3 Negative (Negative); RHINOVIRUS Positive (Negative); RSV A Negative (Negative); RSV B Negative (Negative)
--- NOTE | 2018-09-16 16:40 | NUR ---
PT TRANSFERED TO THE UNIT FROM THE ICU - ORIENTED TO ROOM AND BEDSPACE. ASSESSMENT CHARTED - PT WITH HIGH FLOW CANNULA INSITU - 40%. PEG TUBE CHANGED OUT BY DR LINARES AT THE BEDSIDE THIS AFTERNOON - WILL RESUME TUBE FEEDINGS ORDERED. NO CO'S OF PAIN OR NAUSEA. PT UP IN THE CHAIR THIS AFTERNOON. PT CAN BE IMPULSIVE AND FORGETFUL - REQUESTINIG WATER TO DRINK - PT WITH ASPIRATION - GIVEN SWABS. NO CO'S AT THE PRESENT TIME.
--- NOTE | 2018-09-16 23:44 | NUR ---
22:30> PEG TUBE CAME OUT SPONTANEOUSLY WHILE PATIENT WAS BEING MOVED FROM BED TO COMMODE BY JULISSA BENAVIDEZ. RT BRONWYN ( PT'S SON WAS AT BEDSIDE). CALLED DR LINARES ANSWERING SERVICE. SHE CALLED BACK. I INFORMED HER THAT I DIDNT SEE ANY BALLOON INFLATED ON THE TIP OF THE PEG TUBE. SHE TOLD ME TO TRY TO INFLATE THE PEG BALLOON WITH 6ML. I INFORMED HER THAT IT WORKED. SHE GAVE AN ORDER TO PUT THE PEG TUBE STRAIGHT BACK WITH TAMIKO GARCIA. SHE SAID NO NEED TO DO XRAY AND SHE SAID THAT ITS OKAY TO USE THE PEG IMMEDIATELY. PEG TUBE REINSERTED ON THE PREVIOUS SITE WITHOUT DIFFICULTY. THE BALLOON WAS INFLATED WITH 6 ML OF AIR, THE PEG WAS ANCHORED WITH EXTERNAL BUMPER. STERILE DRESSING APPLIED. PATIENT TOLERATED WELL. GURGLING SOUNDS NOTED UPON PEG AUSCULTATION. FEEDING RESTARTED.
[2018-09-17 00:27] VITALS: BP 146/77
[2018-09-17 04:48] VITALS: BP 176/88
[2018-09-17 05:31] LABS: CALCIUM 8.5 mg/dL (8.5-10.1); CREATININE 0.5 mg/dL (0.6-1.0); POTASSIUM 3.2 mmol/L (3.5-5.1)
--- NOTE | 2018-09-17 08:16 | HC ---
[facility] [place] [address] CONSULTATION Name: HILDAALYSE David Room #: 216-P ADM IN .R.#: [id number] Admission: 09/10/18 ������������������ Attend Phys: Gabino Blas MD Discharge: ������������������ Date of : 42 Report #: [id number] THIS REPORT FOR: //name// CC: NO PCP Pola Hoang DATE OF SERVICE: 09/11/2018 CARDIOLOGY CONSULTATION INDICATION: Positive troponin. HISTORY OF PRESENT ILLNESS: This is a 78-year-old female, with a history of laryngeal carcinoma, aspiration pneumonia, COPD, hypertension, hypercholesterolemia and PEG placement, presenting with respiratory distress. She lives at home with assistance. Her son found her to be in respiratory distress and brought her to the hospital. There is a history of fever. She was found to have cultures positive for influenza A and B. Chest x-ray reveals bilateral infiltrates consistent with pneumonia. We are asked to evaluate the patient for a positive troponin of 2.55. ECG reveals sinus rhythm with nonspecific ST segment changes. The patient has no prior cardiac history. She denies any episodes of chest pains. PAST MEDICAL HISTORY: Laryngeal carcinoma, status post chemotherapy and radiation therapy. History of chronic aspiration. PEG placement. Has a left mandible sinus tract that is nonhealing due to prior radiation. Diagnosed with osteomyelitis, on chronic antibiotic therapy. History of hypertension and hypercholesterolemia. ALLERGIES: None. MEDICATIONS AT HOME: Include losartan 25 mg daily, metformin, Synthroid, omeprazole, simvastatin 40. See MAR for full listing. SOCIAL HISTORY: Former tobacco user. FAMILY HISTORY: Negative for premature CAD. REVIEW OF SYSTEMS: A full 10-point review of systems performed. Only the pertinent positives and negatives are described in the HPI. PHYSICAL EXAMINATION: VITAL SIGNS: Blood pressure is 120/70, heart rate is 80 beats per minute. GENERAL APPEARANCE: This is a thin female, wearing a facemask, in no acute distress. HEENT: Normocephalic, atraumatic. [facility] [address] [place] [address] CONSULTATION Name: ALYSE STEVENS Room #: 216-[facility] IN [facility].#: [id number] Admission: 09/10/18 ������������������ Attend Phys: Gabino Blas MD Discharge: ������������������ Date of : 42 Report #: [id number] NECK: Supple. LUNGS: Bibasilar crackles. CARDIAC: Regular rate and rhythm. S1, S2 positive. ABDOMEN: Soft, nontender. EXTREMITIES: No cyanosis. Trace edema. LABORATORY DATA: White count 6.1, hemoglobin is 11. Peak troponin is 2.55. Creatinine is 0.8, AST is 7691, ALT is 3226. ECG reveals sinus rhythm, nonspecific ST segment abnormalities. ASSESSMENT AND PLAN: 1. Troponin elevation, may be due to oxygen mismatch; however, she will need an ischemic evaluation once her respiratory status has stabilized. We will proceed with an echocardiogram. Continue with aspirin and statin therapy. 2. Respiratory failure/pneumonia/chronic obstructive pulmonary disease, check cultures and continue antibiotics, as per pulmonary. 3. Hypertension. Continue with medications. 4. Hypercholesterolemia. Hold statin therapy in view of elevated transaminases. 5. Elevated transaminases. Check hepatitis profile. Gastroenterology evaluation. ��������������������������������������������� <ELECTRONICALLY SIGNED> ���������������������������������������� By: Jon Decker MD ��������������������������������������������� 09/17/18 0816 0919 194 Jon Decker MD /nt
[2018-09-17 08:39] VITALS: BP 155/79
--- NOTE | 2018-09-17 10:38 | NUR ---
ASSUMED CARES AT 0730. PT AWAKE, ORIENTED *2, FORGETFUL. C/O MILD HEADACHE. VITALS STABLE. ON 6L OXYGEN VIA NC WITH SATS >95%, WALKED WITH PT AND ABLE TO MAINTAIN SATS >95% WITH ACTIVITY WITHOUT SOB. PEG TUBE REMAINS INTACT AND PATENT, TUBE FEEDING RUNNING AT 55ML/HR WITH 200CC FLUSH Q4H. VILLANUEVA REMAINS INTACT AND PATENT, URINE IS LIGHT YELLOW AND CLEAR. NSR ON TELE MONITOR, 2+/2+ PULSES. BLISTER ON RIGHT GUZMÁN REMAINS INTACT, DRESSING ON AND INTACT. PT REMAINS NPO. UP WITH 1 PERSON MIN ASSIST, AMBULATED WITH PT AND TOLERATED WELL. Q1H VISUAL CHECKS. CALL LIGHT WITH REACH
[2018-09-17 12:21] VITALS: BP 134/72
--- NOTE | 2018-09-17 13:51 | NUR ---
[facility] acute rehab has accepted the pt pending medical clearance. Will follow.
--- NOTE | 2018-09-17 14:55 | NUR ---
Nutrition: Now that pt has transferred out of ICU would recommend transition back to usual bolus regimen of Nutren 2.0 QID ( hospital equivalent is 2 Luis E HN ) with 150 mL H20 flush q 4 hrs. Possible Discharge to rehab.
[2018-09-17 14:57] VITALS: BP 155/83
[2018-09-17 19:14] VITALS: BP 144/75
[2018-09-18 05:54] VITALS: BP 130/66
[2018-09-18 05:57] LABS: HEMATOCRIT 33.9 % (37.0-47.0); MCH 32.9 pg (26.0-34.0); MCHC 32.4 g/dL (28.0-37.0); MCV 101.5 fL (80.0-100.0); RBC 3.34 mil/uL (4.20-5.00); RDW 19.2 % (10.5-14.5); WBC 6.5 thou/uL (4.0-11.0)
[2018-09-18 06:13] LABS: ALBUMIN 2.2 g/dL (3.4-5.0); CALCIUM 8.8 mg/dL (8.5-10.1); CREATININE 0.6 mg/dL (0.6-1.0); MAGNESIUM 1.9 mg/dL (1.8-2.4); POTASSIUM 3.5 mmol/L (3.5-5.1); TOTAL BILIRUBIN 0.5 mg/dL (<0.1-1.0); TOTAL PROTEIN 5.7 g/dL (6.4-8.2)
--- NOTE | 2018-09-18 07:45 | NUR ---
ASSUMED PT CARE AT 1900 WITH NO SIGN OF DISTRESS NOTED IN PT. PT IS ALERT. FAMILY AT BEDSIDE. PT IS STABLE, VITAL SIGNS STABLE. SCHEDULED MEDS ADMINISTERED THROUGH THE FEEDING TUBE. PT IS ON 6L OF OXYGEN. PT IS STABLE ON THE HEART MONITOR. PLAN FOR PATIENT IS DISCHARGED TO REHAB, NO FURHER NEEDS AT THIS TIME.
[2018-09-18 09:38] VITALS: BP 152/87
[2018-09-18 12:49] VITALS: BP 140/75
[2018-09-18 16:00] VITALS: BP 124/73
--- NOTE | 2018-09-18 18:12 | NUR ---
ASSUMED CARE OF PATIENT AT 0700. ASSESSMENTS CHARTED. PATIENT'S SON RESTING AT THE BEDSIDE FOR THE LUNCH HOUR. PATIENT IS ON TUBE FEEDING AND RECEIVING ALL MEDS THROUGH PEG TUBE. SHE DENIES ANY PAIN. CALL LIGHT IS WITHIN REACH. PATIENT IS COOPERATIVE AND COMPLIANT WITH CALLING OUT BEFORE GETTING UP. PATIENT AMBULATED TO THE BSC WITH LITTLE ASSISTANCE AND WORKED WITH PT AND WALKED THE UNIT. PATIENT TO CONTINUE WITH POC.
[2018-09-18 20:38] VITALS: BP 161/84
--- NOTE | 2018-09-19 04:56 | NUR ---
ASSUMED PT CARE AT 1900 WITH NO SIGN OF DISTRESS NOTED. PT IS ALERT AND ORIENTED. PT IS STABLE ON THE BED. PT IS STILL ON OXYGEN, SCHEDULED MEDS ADMINISTERED TO PT THROUGH FEEDING TUBE. PT IS STABLE ON THE MONITOR. NO FURTHER NEEDS AT THIS TIME.
[2018-09-19 05:23] LABS: CALCIUM 8.2 mg/dL (8.5-10.1); CREATININE 0.5 mg/dL (0.6-1.0); PHOSPHORUS 3.1 mg/dL (2.5-4.9)
[2018-09-19 05:25] LABS: POTASSIUM 2.9 mmol/L (3.5-5.1)
[2018-09-19 05:29] VITALS: BP 166/81
[2018-09-19 07:58] VITALS: BP 131/73
[2018-09-19 10:15] VITALS: BP 154/82
[2018-09-19 14:48] VITALS: BP 137/70
--- NOTE | 2018-09-19 16:48 | NUR ---
ASSUMED CARE OF PT AT 0700. PT A&OX4, UP WITH ASSIST OF ONE TO BEDSIDE COMMODE. ASSISTANCE REQUIRED FOR MULTIPLE TUBES/LINES. PT HAD POTASSIUM REPLACED THROUGHOUT THE DAY. REDRAWS ORDERED. PT DENIED PAIN OR COMPLAINT THIS SHIFT. VITALS WITHIN NORMAL LIMITS AND PT WAS SINUS RHYTHM ON THE MONITOR. PEG TUBE PATENT. WILL CONT WITH POC.
[2018-09-19 19:52] VITALS: BP 133/74
[2018-09-19 20:55] LABS: MAGNESIUM 1.7 mg/dL (1.8-2.4)
[2018-09-19 20:58] LABS: POTASSIUM 4.4 mmol/L (3.5-5.1)
--- NOTE | 2018-09-20 04:22 | NUR ---
ASSESEMENT DOCUMENTED.PT BEEN RESTING IN NO ACUTE DISTRESS.A/OX4.VSS.TUBE FEEDING INFUSING AT 55ML/HR,NO RESIDUAL OBTAINED.ON ABT TX ,TOLERATING.REMAINS AFEBRILE.DRESSING TO LEFT JAW,CDI.UP TO BSC WITH ASSIST.ON O2 AT 4LITERS PNC.NO RESP DISTRESS NOTED.POC IS TO TRANSFER PT TO [facility] REHAB WHEN DISCHARGED.WILL CONT TO MONITOR PER POC.
[2018-09-20 05:17] VITALS: BP 139/68
[2018-09-20 08:00] VITALS: BP 148/72
[2018-09-20] MEDS ORDERED: CEFDINIR300 MG PER TUBE (11:38)
[2018-09-20] MEDS ORDERED: METRONIDAZOLE500 M4 PER TUBE (11:40)
[2018-09-20] MEDS ORDERED: ENOXAPARIN40 MG/0.1 SUBQ (11:40)
[2018-09-20] MEDS ORDERED: AMLODIPINE BESYL5 M1 PO (11:41)
[2018-09-20] MEDS ORDERED: COZAAR100 MG PO (11:41)
[2018-09-20] MEDS ORDERED: CARVEDILOL12.5 MG PO (11:41)
[2018-09-20] MEDS ORDERED: NEURONTIN 300300 M1 PO (11:42)
[2018-09-20] MEDS ORDERED: TRAMADOL 50 MG50 MG PER TUBE (11:42)
[2018-09-20] MEDS ORDERED: ASPIRIN325 PO (11:42)
[2018-09-20] MEDS ORDERED: PULMICORT0.5 MG/21 INH (11:43)
[2018-09-20] MEDS ORDERED: PREDNISONE 20 M20 M1 PER TUBE (11:44)
--- NOTE | 2018-09-20 11:48 | NUR ---
Once PEG replaced, recommend change tube feed formula to equivalent of pts home tube feed regimen of 2cal HN bolus, 1 can QID. Rec 150ml water flush after each bolus.
[2018-09-20 12:33] VITALS: BP 153/67
[2018-09-20 15:48] VITALS: BP 130/65
--- NOTE | 2018-09-20 16:10 | NUR ---
patient stable for dc to [facility] today. [facility] accepting. Son aware of trannsfer to [facility] today.
--- NOTE | 2018-09-20 17:08 | NUR ---
ASSUMED CARE OF PT AT 0700. PT A&OX4, UP WITH MIN ASSIST TO BEDSIDE COMMODE. PT WALKED AND BATHED WITH PT/OT TODAY. PT'S TUBE FEEDING AND MEDS HELD THIS MORNING PRIOR TO PEG TUBE REPLACEMENT. PEG TO REPLACED BY GI AT THE BEDSIDE. PT VITALS WNL EXCEPT BP SLIGHTLY HIGH AND BP MEDS GIVEN. PT DISCHARGED TO 5N AND REPORT GIVEN TO REYNA. IV LEFT IN ARM PER NURSE REQUEST. DISCHARGE ORDERS PRINTED OUT AND SENT WITH PT. TELE REMOVED. PT STATED SHE HAD ALL BELONGINGS.
== END 2018-09-20 16:21 | DRG 871 ==
LOC: ER 17:50 → ICU 19:21 → EROBS 19:21 → ICU 19:55 → 2N 09-16 15:27
PROVIDERS: Emergency Medicine; Hospitalist; Internal Medicine; Internal Medicine Pulmonary Disease; Nurse Practitioner Acute Care; Pediatrics; Specialist; ADMIT Hospitalist
PROC: 5A09357 Assistance with Respiratory Ventilation, Less than 24 Consecutive Hours, Continuous Positive Airway Pressure (ICD-10-PCS; principal; 2018-09-10)
PROC: 5A09357 Assistance with Respiratory Ventilation, Less than 24 Consecutive Hours, Continuous Positive Airway Pressure (ICD-10-PCS; 2018-09-11)
PROC: 5A09357 Assistance with Respiratory Ventilation, Less than 24 Consecutive Hours, Continuous Positive Airway Pressure (ICD-10-PCS; 2018-09-12)
PROC: 5A09357 Assistance with Respiratory Ventilation, Less than 24 Consecutive Hours, Continuous Positive Airway Pressure (ICD-10-PCS; 2018-09-13)
PROC: 0D20XUZ Change Feeding Device in Upper Intestinal Tract, External Approach (ICD-10-PCS; 2018-09-16)
PROC: 0D20XUZ Change Feeding Device in Upper Intestinal Tract, External Approach (ICD-10-PCS; 2018-09-17)
DX: A41.89 Other specified sepsis (principal); J96.21 Acute and chronic respiratory failure with hypoxia; I21.4 Non-ST elevation (NSTEMI) myocardial infarction; J69.0 Pneumonitis due to inhalation of food and vomit; I50.31 Acute diastolic (congestive) heart failure; J10.01 Influenza due to other identified influenza virus with the same other identified influenza virus pneumonia; E87.0 Hyperosmolality and hypernatremia; N39.0 Urinary tract infection, site not specified; E87.2 Acidosis; E87.3 Alkalosis; E46 Unspecified protein-calorie malnutrition; G93.40 Encephalopathy, unspecified; I42.9 Cardiomyopathy, unspecified; T85.598A Other mechanical complication of other gastrointestinal prosthetic devices, implants and grafts, initial encounter; Z68.1 Body mass index [BMI] 19.9 or less, adult; Y92.238 Other place in hospital as the place of occurrence of the external cause; E78.00 Pure hypercholesterolemia, unspecified; R41.9 Unspecified symptoms and signs involving cognitive functions and awareness; F32.9 Major depressive disorder, single episode, unspecified; F41.9 Anxiety disorder, unspecified; E87.6 Hypokalemia; J44.9 Chronic obstructive pulmonary disease, unspecified; D64.9 Anemia, unspecified; R65.20 Severe sepsis without septic shock; B97.89 Other viral agents as the cause of diseases classified elsewhere; E83.42 Hypomagnesemia; E87.8 Other disorders of electrolyte and fluid balance, not elsewhere classified; E03.9 Hypothyroidism, unspecified; M27.2 Inflammatory conditions of jaws; I11.0 Hypertensive heart disease with heart failure; R13.10 Dysphagia, unspecified; Z92.3 Personal history of irradiation; Z93.1 Gastrostomy status; Z79.899 Other long term (current) drug therapy; Z79.84 Long term (current) use of oral hypoglycemic drugs; Z85.21 Personal history of malignant neoplasm of larynx; Z92.21 Personal history of antineoplastic chemotherapy; Z90.710 Acquired absence of both cervix and uterus; Z90.49 Acquired absence of other specified parts of digestive tract; Z87.891 Personal history of nicotine dependence; Z91.19 Patient's noncompliance with other medical treatment and regimen
CPT/HCPCS: 10078; 10797

== ENCOUNTER 2018-09-17 10:48 | Inpatient (IN) | payer OTHER ==
[~2018-09-17] VITALS: Ht 165.1 cm; Wt 52.7 kg
[~2018-09-17 10:48] MED LIST changes: +IRON325 PER TUBE; +MAGOX 400400 MG PER TUBE; +MELATONIN5 M1 PO; +NORTRIPTYLINE H50 M3 PO; +VITAMIN B-12500 MCG PO; +XANAX 0.5 MG0.5 MG PER TUBE
[2018-09-20] MEDS ORDERED: CEFDINIR300 MG PER TUBE (11:38)
[2018-09-20] MEDS ORDERED: ENOXAPARIN40 MG/0.1 SUBQ (11:40)
[2018-09-20] MEDS ORDERED: METRONIDAZOLE500 M4 PER TUBE (11:40)
[2018-09-20] MEDS ORDERED: AMLODIPINE BESYL5 M1 PO (11:41)
[2018-09-20] MEDS ORDERED: COZAAR100 MG PO (11:41)
[2018-09-20] MEDS ORDERED: CARVEDILOL12.5 MG PO (11:41)
[2018-09-20] MEDS ORDERED: NEURONTIN 300300 M1 PO (11:42)
[2018-09-20] MEDS ORDERED: ASPIRIN325 PO (11:42)
[2018-09-20] MEDS ORDERED: TRAMADOL 50 MG50 MG PER TUBE (11:42)
[2018-09-20] MEDS ORDERED: PULMICORT0.5 MG/21 INH (11:43)
[2018-09-20] MEDS ORDERED: PREDNISONE 20 M20 M1 PER TUBE (11:44)
--- NOTE | 2018-09-20 16:10 | NUR ---
CHART REVIEW, CM VISITED WITH PT ON 2N PRIOR TO BEING MOVED TO [facility]. PT A & O X 3, PLEASANT AND ABLE TO MAKE HER NEEDS KNOW. INTRO TO CM, DCP, TRANSITION OF CARE, HOME HEALTH AND TEAM MEETINGS. PER PT " LIVE HOUSE ALONE, SON BRONWYN DPOA SUPPORTIVE AND HELPFUL. NO DME, HOME O2 CONCENTRATOR AND PORTABLE TANKS FOR PROVIDER PLUS. TUBE FEEDING SUPPLIES FROM [facility]. DRIVES WHEN FEELING OK, MANAGE OWN MEDICATION AT HOME. HAD PRIVATE DUTY FOR CLEANING IN PAST WITH VISITING RANDI. HOME HEALTH IN PAST WITH ARNALDO."/ALYSE. WILL CONT FOLLOWING NEEDED FOR DC NEEDS.
[2018-09-20 16:30] VITALS: BP 131/56
--- NOTE | 2018-09-20 19:18 | NUR ---
ASSUMED CARE AT APPROX 0715. PATIENT A/O X4. DENIES PAIN. TRANSFERED X1 ASSIST GB AND WALKER. ADMISSION ASSESSMENT COMPLETE. MED ORDERS FAXED TO PHARMACY. PEG TUBE ASSESSED, TUBE FEEDING STARTED PER ORDERS. WOUND PICTURES TAKEN, WOUNDS RE-DRESSED. 1600 AND 1700 SCHEDULED MEDS GIVEN PER PEG. PATIENT RE-EDUCATED ON NPO STATUS, MOIST SWABS PROVIDED TO REFRESH MOUTH. FALL PRECAUTIONS IN PLACE. PATIENT RESTING IN BED AT CHANGE OF SHIFT.
[2018-09-20 19:25] VITALS: BP 118/60
--- NOTE | 2018-09-21 00:58 | NUR ---
PT ASSESSMENT COMPLETED AND VSS. MEDS GIVEN ORDERED AND WELL TOLERATED. FALL PRECAUTIONS IN PLACE. SUPPORTIVE SON AT BEDSIDE. UP TO THE BATHROOM WITH NC/TF/WALKER/GAIT/ASST. VOIDING LARGE AMOUNT OF YELLOW URINE. STOOL NEEDED FOR 0CCULT BLOOD. NO BM SO FAR THIS EVENING. WOUND CARE CONSULTED FOR SEVERAL WOUNDS. TURN Q 2 HOURS FOR RED COCCYX USING PILLOWS FOR COMFORT. TF AND FLUSHES GIVEN ORDERED. SLEEPING WELL. WILL CONTINUE TO MONITOR FREQUENTLY. SAT WNL ON NC. IS ENC.
--- NOTE | 2018-09-21 01:01 | NUR ---
PT REMAINS NPO. MOUTH CARE PROVIDED.
[2018-09-21 06:15] LABS: HEMOGLOBIN 8.7 gm/dL (12.0-15.0); MCH 32.4 pg (26.0-34.0); MCHC 32.3 g/dL (28.0-37.0); MCV 100.4 fL (80.0-100.0); RBC 2.69 mil/uL (4.20-5.00); RDW 18.4 % (10.5-14.5)
[2018-09-21 06:23] LABS: CALCIUM 8.3 mg/dL (8.5-10.1); CREATININE 0.5 mg/dL (0.6-1.0); POTASSIUM 3.1 mmol/L (3.5-5.1)
[2018-09-21 07:00] VITALS: BP 114/65
--- NOTE | 2018-09-21 10:23 | NUR ---
ASSUMED CARE AT 0700. PATIENT IS ALERT AND ORIENTED X4, AND FORGETFUL AT TIME. PATIENT SHARMA'S, PATIENT HAS SOME EXPRESSIVE APHAGIA. PATIENT IS NPO. PATIENT HAS G.T. FOR FEEDINGS AND FLUIDS. PATIENT IS ON VITAL A.F. 1.2 GEOFF AT 55 CC/HR. PATIENT IS CONTINENT OF B/B. LUNGS ARE COARSE AND DEMINISHED. PATIENT HAS CONGESTED COUGH. PATIENT REMAINS ON RESPIRATORY TX. PATIENT CONTINUES ON P.O. ABT. TOLERATING ABT WITHOUT ADVERSE REACTIONS. PATIENT HAS LEFT F.A. S.L. PATIENT IS UP WITH ASSIST OF 1 STAFF WITH GAIT BELT AND WALKER. PATIENT HAS LEFT KNEE ABRASION, RIGHT CALF BLISTER, LEFT EAR ABRASION. STOOL FOR OCCULT BLOOD IS NEGATIVE. FALL AND SAFETY PROTOCOLS IN PLACE. DENIES ANY PAIN AT THIS TIME. WILL CONTINUE TO MONITER.
--- NOTE | 2018-09-21 12:47 | NUR ---
team meeting, recommendation : re team with anticipated 12th with [facility] ( pt, ot, st ), [facility], needs assist with medication management and finances. not recommended that pt drive or cont to drink ethol per peg.
--- NOTE | 2018-09-21 14:57 | NUR ---
WOUND CONSULT: PT. WAS SEEN TODAY BY DR. WOOD AND MYSELF. PT. IS WELL KNOWN TO THE WOUND CARE TEAM. 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 PT. HAS A FISTULA TRACK WITH THE WOUND WELL. PT. AND HER FAMILY ARE AWARE OF THE OSTEO THAT IS PRESENT AND WISH THAT NO FURTHER SURGERYS TAKE PLACE AND THAT WE UTLIZE WOUND CARE MANAGEMENT ONLY. PT. ALSO CURRENTLY HAS A STAGE 1 PRESSURE ULCER TO HER SACRUM AND A UNSTAGABLE PRESSURE ULCER TO HER LEFT EAR. ALONG WITH RUPTURED BLISTERS TO HER RIGHT MEDIAL CALF AND LEFT KNEE. NO WOUNDS SHOW ANY ACTIVE SIGNS OF INFECTION AT THIS TIME. RECOMMENDATIONS: WOUND CARE TO LEFT JAW, LEFT KNEE AND RIGHT MEDIAL CALF: GENTLY CLEANSE WITH WOUND CLEANSER OR NORMAL SALINE, COVER WITH OPTIFOAM BORDER, COMPLETE CARES DAILY AND PRN SOILAGE. WOUND CARE TO LEFT EAR: GENTLY CLEANSE WITH WOUND CLEANSER OR NORMAL SALINE, PAINT WITH BETADINE, LEAVE OPEN TO AIR, COMPLETE CARES DAILY. WOUND CARE TO SACRUM: GENTLY CLEANSE AREA WITH WOUND CLEANSER OR NORMAL SALINE, APPLY MOISTURE BARRIER CREAM, LEAVE OPEN TO AIR, COMPLETE CARES DAILY AND PRN. TURN Q2 HOURS KEEP PT. OFF WOUNDS MUCH POSSIBLE PT. AND STAFF NURSE WERE INSTRUCTED ON PLAN OF CARE.
--- NOTE | 2018-09-21 15:00 | NUR ---
DISCHARGE PLANNING: PT'S SON BRONWYN CAME TO THIS OFFICE TO ASK ABOUT TEAM CONFERENCE AND DC PLANNING. INFORMED HIM OF DC PLAN FOR 10/01, AND HE AGREED THAT THIS SOUNDED GOOD, AND OFFERED TO TALK TO PT ABOUT THIS, TO ENSURE PT'S UNDERSTANDING OF THE PLAN AND REASONS WHY. ADVISED THAT IC ENGINEER WILL ALSO REACH OUT TO THEM REGARDING DC PLANNING AND SETUP FOR HH. PER BRONWYN, PT HAS LTC INSURANCE, WHICH MAY PAY FOR SOME HOME PVT CARE SERVICES. BRONWYN NOTED THAT RETURN HOME IS PREFERABLE INSTEAD OF AL IF POSSIBLE, BUT THAT HE WORKS, AND WILL NOT BE ABLE TO PROVIDE CARE IN THE HOME FOR PT. HE STATED THAT HIS 'S CELL PHONE # IS NOT WORKING CURRENTLY, ([phone] # IS BROKEN), AND TO USE HIS PERSONAL CELL: .
--- NOTE | 2018-09-21 17:15 | NUR ---
cm met with son marco rt team meeting and recommends. education assist medication management, home health, and financial. son receptive to recommendation. " [facility] is who will use again, she has private duty lady who helps her out few times during week. will cont to remind her that she is not to drive until cleared by her doctor. if need to take car for while i will."/marco. will cont following as needed for dc needs.
[2018-09-21 19:35] VITALS: BP 142/72
--- NOTE | 2018-09-22 02:26 | NUR ---
ASSUMED CARE AT APPROX 1900 EVENING 09/21. PT SITTING IN RECLINER AT CHANGE OF SHIFT. PT ASSISTED UP TO BATHROOM BEFORE HS TO VOID AND ALSO INCONTINENT OF SMALL STOOL IN BRIEF. ASSISTED WITH CHANGING. PEG TUBE INTACT AND HS MEDS CRUSHED AND GIVEN PER PEG WITH H20 FLUSH AND BOLUS CAN OF TWO GEOFF HN. PT WITH ANOTHER LOOSE STOOL LATER IN EVENING AND ASSISTED WITH BRIEF CHANGE. PT NPO. PT APPEARS TO BE SLEEPING SOUNDLY WITH HOURLY ROUNDING CHECKS. 02 AT 2L PER N/C. BED ALARM ON AND CALL LIGHT IN REACH. WILL CONTINUE TO MONITOR.
[2018-09-22 07:45] VITALS: BP 139/75
--- NOTE | 2018-09-22 11:21 | NUR ---
ASSUMED CARES AT 0700. PT AWAKE, A/0*4 BUT FORGETFUL AND CAN BE IMPULSIVE. VITALS REMAIN STABLE. DENIES PAIN. PEG TUBE REMAINS INTACT AND PATENT, FEEDINGS DONE SCHEDULED WITH 150CC FLUSHES. IV ON LEFT FOREARM REMAINS PATENT AND INTACT. WOUNDS ON LEFT JAW AND BLE CLEANED AND DRESSING CHANGED. LS REMAIN CLEAR, PT CONTINUES TO HAVE A LOOSE COUGH, SATS >95% ON 2L VIA NC. PT UP WITH GAITBELT, WALKER AND O2 TUBING, TOLERATED WELL. Q1H VISUAL CHECKS. CALL LIGHT WITHIN REACH. FALL PRECAUTIONS IN PLACE
--- NOTE | 2018-09-22 14:47 | NUR ---
PT. HAD TUBE FEEDING THROUGH [facility] FAXED H/P AND T.F. SPOKE WITH KASSIE AND THEY WILL RESUME AT [place]. AZP TO FOLLOW.
[2018-09-22 17:11] VITALS: BP 115/61
[2018-09-22 19:56] VITALS: BP 122/65
--- NOTE | 2018-09-23 00:23 | NUR ---
PT ALERT AND ORIENTED X 4, FORGETFUL. IMPULSIVE AT TIMES. CLIMBING OUT OF BED JUST NOW TRYING TO GET TO BATHROOM. PT INSTRUCTED TO CALL FOR ASSISTANCE WHEN GETTING UP. REINFORCED HOW TO USE CALL LIGHT. PEG TUBE PATENT. DAY FEEDINGS WELL. PT NPO. 02 ON AT 2L PER NC CONT. 02 SAT 98%. MEDS CRUSHED AND GIVEN THROUGH PEG TUBE. DRESSINGS TO LEFT CHEEK, LEFT KNEE AND RIGHT CALF C/D/I. XANAX GIVEN AT HS PER PT REQUEST FOR SLEEP. BED ALARM ON FOR SAFETY. PT CHECKED ON HOURLY ROUNDS.
[2018-09-23 08:35] VITALS: BP 164/73
--- NOTE | 2018-09-23 14:48 | NUR ---
I have reviewed the documentation by MECCA CACERES from 09/23/18 to 09/23/18 and I concur with it. PIPO SANCHEZ
[2018-09-23 19:29] VITALS: BP 110/57
--- NOTE | 2018-09-23 19:30 | NUR ---
ASSUMED CARE OF HALINA AT 0715. PATIENT IS A&OX4 WITH PERIODS OF FORGETFULNESS. PATIENT PARTICIPATED IN SCHEDULED THERAPIES THIS SHIFT. PATIENT IS UP WITH 1 PERSON ASSIST, GAITBELT AND WALKER. IV SALINE LOCKED IN THE RIGHT FORARM. DRESSINGS CHANGED ON LEFT CHEEK, LEFT KNEE, AND RIGHT CALF. LOW AIRLOSS PUMP ORDERED AND PLACED. PATIENT HAD >100ML OF RESIDUAL FROM FEEDING TUBE AT TIME OF 1200 FEEDING, FEEDING WAS HELD AND THEN GIVEN AT APPROX. 1400 WHEN RESIDUAL MEASURED APPROX 10ML. PATIENT TOLERATED FEEDINGS APPROPRAITELY. PATIENT HAD LOOSE STOOL THIS MORNING FOLLOWING REPORT AND REPORTED LOOSE STOOLS DURING THE NIGHT, ORDERS OBTAINED FOR ANTI-DIARRHEAL. PATIENT REPORTED A HEADACHE AT APPROXIMATELY 1700 AND WAS TREATED WITH MEDICATIONS.
--- NOTE | 2018-09-24 01:34 | NUR ---
PT ALERT AND ORIENTED X 4. AMB TO BR WITH WALKER AND ASSIST X 1 WITHOUT DIFFICULTY. PEG TUBE PATENT. DAY FEEDINGS WELL. PT GIVING FEEDINGS WITH SOME GUIDANCE. MEDS CRUSHED AND GIVEN THROUGH PEG TUBE. PT C/O HEADACHE. TRAMADOL GIVEN X 1. PT SLEEPING UPON REASSESSMENT. BED ALARM ON FOR SAFETY. PT APPEARS TO BE SLEEPING ON HOURLY ROUNDS.
[2018-09-24 05:11] LABS: ABSOLUTE NEUTROPHILS 5.6 thou/uL (1.4-8.2); BASOPHILS 0.4 % (0.0-2.0); EOSINOPHILS 0.1 % (0.0-3.0); HEMOGLOBIN 9.1 gm/dL (12.0-15.0); LYMPHOCYTES 11.3 % (24.0-44.0); MCH 33.6 pg (26.0-34.0); MCHC 33.5 g/dL (28.0-37.0); MCV 100.2 fL (80.0-100.0); MONOCYTES 8.9 % (1.0-8.0); PLATELET COUNT 303 thou/uL (150-400); POLYS 79.3 % (36.0-66.0); RDW 18.8 % (10.5-14.5); WBC 7.1 thou/uL (4.0-11.0)
[2018-09-24 05:24] LABS: CALCIUM 8.3 mg/dL (8.5-10.1); CREATININE 0.5 mg/dL (0.6-1.0); POTASSIUM 3.7 mmol/L (3.5-5.1)
[2018-09-24 08:23] VITALS: BP 147/77
--- NOTE | 2018-09-24 11:14 | NUR ---
ASSUMED CARES AT 0700. PT A/0*3, FORGETFUL AND CONFUSED AT TIMES. IMPULSIVE AND NEEDS REMINDERS TO CALL AND WAIT FOR HELP. VITALS REMAINED STABLE. PT DENIES PAIN. G-TUBE REMAINS INTACT AND PATENT, TUBE FEEDINGS QID SCHEDULED AND 150CC WATER FLUSHES. PT HAS BEEN DOING HER OWN TUBE FEEDINGS WITH SBA AND SHE FORGETS TO LOCK/UNLOCK THE PEG TUBE SOMETIMES AND CAUSES A SPILL OF FEEDING, STILL NEEDS HANDS ON ASSISTANCE. WOUNDS (BLISTERS) ON LEFT KNEE AND RIGHT GUZM[place]N HEALING, DRESSING CHANGED. LEFT JAW WOUND DRAINING CREAM COLORED SECRETIONS, CLEANED AND DRESSING CHANGED. CONTINUES TO HAVE REDNESS ON HER BOTTOM, CLEANED AND DRIED, Q2H REPOSITION. PT ON 1-2 L OXYGEN AT REST WITH SATS >95%, LOW SATS NOTED WITH ACTIVITY BUT STABILISES WITH REST. TOLERATED ACTIVITY WELL. UP WITH 1 PERSON MIN ASSIST, GAITBELT AND WALKER. Q1H VISUAL CHECKS. CALL LIGHT WITHIN REACH. FALL PRECAUTIONS IN PLACE
--- NOTE | 2018-09-24 14:55 | NUR ---
WOUND FOLLOW UP: PT. WAS SEEN TODAY BY DR. WOOD AND MYSELF. ALL OF HER WOUNDS ARE CLINICALLY BETTER TODAY UPON ASSESMENT. PT. IS IN GOOD SPIRITS AT THIS VISIT. RECOMMENDATIONS: CONTINUE WITH CURRENT PLAN OF CARE. PT. AND STAFF NURSE WERE INSTRUCTED ON PLAN OF CARE.
--- NOTE | 2018-09-24 15:54 | NUR ---
I have reviewed the documentation by MECCA CACERES from 09/24/18 to 09/24/18 and I concur with it. PIPO SANCHEZ
[2018-09-24 17:00] VITALS: BP 134/65
[2018-09-24 20:00] VITALS: BP 112/60
--- NOTE | 2018-09-25 02:58 | NUR ---
assumed care at approx 1900 evening 09/24. pt standing up wanting to leave her room and go home at change of shift. pt frustrated and stating she wants to go home. pt fully dressed with purse in her hands. pt assisted back to her room by day staff and pt decided she would be ok with staying. pt given meds crushed thru peg tube and bolus feedings and H20 flush as ordered. pt assisted into pajamas and appears to be sleeping soundly with hourly rounding checks. bed alarm on and call light in reach. will continue to monitor.
[2018-09-25 09:15] VITALS: BP 155/71
--- NOTE | 2018-09-25 14:54 | NUR ---
ASSUMED CARES AT 0700. PT AWAKE, ORIENTED TO PERSON AND SITUATION, FORGETFUL. C/O HEADACHE 12/29, TRAMADOL ADMNISTERED, PT VERBALISED RELIEF OF PAIN AFTER 45 MINS. ALL VITALS REMAIN STABLE. PEG TUBE REMAINS PATENT AND INTACT, TUBE FEEDINGS COMPLETED AT 0800, 1200 AND 1700 PER ORDER WITH 150CC FLUSHES, 10-20CC RESIDUAL NOTED. ALL MEDICATION CRUSHED AND ADMINISTERED PER PEG TUBE. PT TOILETED Q4H, BLADDER SCANNING Q6H, 1100 BLADDER SCAN 550CC, PT VOIDED RIGHT AFTER. 1330 BLADDER SCANNED 999+, PT VOIDED 500CC, STRAIGHT CATHED 450CC OF CLEAR BEL URINE WITH NO FOUL ODOR. PT HAD *2 LOOSE STOOLS THIS AM, IMMODIUM ADMINISTERED PER PEGTUBE. WOUND ON LEFT JAW CLEANED AND DRESSING CHANGED. BLISTERS ON LEFT KNEE AND RIGHT CALF HEALING. SACRUM AREA REMAINS RED FROM MULTIPLE STOOLS, CLEANED AFTER BM AND Z-GUARD APPLIED, PT REPOSTIONED Q2H. NO ELOPMENT NOTED TODAY, PT REMAINS IMPULSIVE, FALL PRECAUTIONS IN PLACE. Q1H VISUAL CHECKS. CALL LIGHT WITHIN REACH
[2018-09-25 19:23] VITALS: BP 135/73
--- NOTE | 2018-09-26 01:19 | NUR ---
PT DROWSY TONIGHT. EASILY AROUSED. 02 ON AT 2L PER NC CONT. 02 SAT 93%. PEG TUBE PATENT. 20 ML RESIDUAL BEFORE HS FEEDING. PT NPO. BLOOD SUGAR 150 AT HS. NO INSULIN NEEDED. TRAMADOL GIVEN BY DAY NURSE JUST BEFORE SHIFT CHANGE. PT SLEEPING UPON REASSESSMENT. BED ALARM ON FOR SAFETY. PT APPEARS TO BE SLEEPING ON HOURLY ROUNDS.
[2018-09-26 09:00] VITALS: BP 149/80
[2018-09-26 17:08] LABS: BE(vivo) 4.8 mmol/L (-2 to +3); HCO3 28.8 mmol/L (22.0-26.0); PCO2 40.7 mmHg (35.0-45.0); PO2 67.6 mmHg (80.0-100.0); pH 7.468 (7.360-7.450); sO2 94.5 % (92.0-98.0)
--- NOTE | 2018-09-26 17:15 | NUR ---
ASSUMED CARE OF PATIENT AT 0715. PATIENT IS ALERT AND ORIENTED X4 WITH PERIODS OF DISORIENTATION AND CONFUSION. WITH STABLE VITAL SIGNS. PATIENT TRANSFERS AND AMBULATES WITH 1 PERSON ASSIST USING GAITBELT AND WALKER. PATIENT HAS HAD SEVERAL PERIODS OF INCREASED IMPULSIVITY DURING SHIFT INVOLVING AN INCIDENT WHERE THE PATIENT STATED THAT SHE INTENDED TO LEAVE THE UNIT TO LOOK FOR HER SON. PATIENT WAS ABLE TO BE REDIRECTED BACK INTO HER RECLINER. AT APPROXIATELY 1600, THIS NURSE ENTERED THE PATIENT'S ROUOM WHERE THE PATIENT WAS OBSERVED IN HER RECLINER WITH PHONE IN LAP. PATIENT STATED THAT SHE DID NOT KNOW WHICH PHONE NUMBER SHE NEEDED TO CALL FOR ASSISTANCE. PATIENT WAS REEDUCATED ABOUT THE CALL LIGHT SYSTEM. NURSE CONTINUED TO NOTE CONFUSION WHEN THE PATIENT WAS USING A NORMAL SALINE SYRINGE TO DRIP WATER INTO HER PANTS. WHEN NURSE ASKED THE PATIENT WHY SHE WAS DOING THIS, THE PATIENT REPLIED "BECAUSE MY PANTS ARE WET." THE NURSE ASKED IF THE PATIENT IF SHE WAS AWARE THAT SHE WAS MAKING HER PANTS MORE WET AND THE PATIENT REPLIED "IF YOU THINK SO". PATIENT AT THAT TIME WAS ASKED WHERE SHE WAS AND SHE STATED THAT SHE WAS AT HER HOME IN THE KITCHEN. NURSE THEN OBTAINED VITAL SIGN EQUIPMENT AND RETURNED AND ASKED THE PATIENT THE SAME QUESTION. AT THAT TIME THE PATIENT WAS A&OX4. PROVIDER WAS CONTACTED AND ORDERS WERE OBTAINED. AT 1100 PATIENT WAS BLADDER SCANNED AND FOUND TO HAVE 600ML OF RESIDUAL. PATIENT WAS STRAIGHT CATHED WITHOUT ISSUE AND 550Ml OF URINE WAS OBTAINED. WOUNDS TO THE BILATERAL LEGS, FACE, AND EAR WERE CHANGED PER ORDERS. PATIENT DENIES PAIN, 20Ml RESIDUAL AT TIME OF FEEDINGS. FALL PRECAUTIONS IN PLACE AND NURSING WILL CONTINUE TO MONITOR PATIENT.
[2018-09-26 17:23] LABS: HEMATOCRIT 31.1 % (37.0-47.0); HEMOGLOBIN 10.3 gm/dL (12.0-15.0); MCH 32.9 pg (26.0-34.0); MCHC 33.1 g/dL (28.0-37.0); MCV 99.2 fL (80.0-100.0); RBC 3.13 mil/uL (4.20-5.00); RDW 18.8 % (10.5-14.5); WBC 9.4 thou/uL (4.0-11.0)
[2018-09-26 17:27] LABS: CALCIUM 9.4 mg/dL (8.5-10.1); CREATININE 0.6 mg/dL (0.6-1.0); MAGNESIUM 1.7 mg/dL (1.8-2.4); POTASSIUM 3.8 mmol/L (3.5-5.1)
[2018-09-26 19:30] VITALS: BP 116/65
[2018-09-26 19:47] LABS: URINE BILIRUBIN NEGATIVE (Negative); URINE BLOOD NEGATIVE (Negative); URINE CLARITY CLEAR; URINE COLOR YELLOW; URINE GLUCOSE-RANDOM* NEGATIVE (Negative); URINE KETONES NEGATIVE (Negative); URINE LEUKOCYTES-REFLEX NEGATIVE (Negative); URINE NITRITE-REFLEX NEGATIVE (Negative); URINE PROTEIN (DIPSTICK) NEGATIVE (Negative); URINE UROBILINOGEN 0.2 E.U./dl (0.2-1.0)
--- NOTE | 2018-09-27 02:19 | NUR ---
assumed care at approx 1900 evening 09/26. pt dangling on side of bed at change of shift somewhat confused and impulsive. son Arnulfo visiting until hs. 02 at 1l per n/c with pt taking off at times. pt continued to be impulsive and saying she wanted to leave until approx 2200 when she fell asleep. peg tube intact with tube feedings and flushes as ordered. pt appears to be sleeping soundly at present. bed alarm on and call light in reach. will continue to monitor.
--- NOTE | 2018-09-27 05:45 | NUR ---
ASSISTED PT UP TO BATHROOM TO VOID. PT VOIDED FOR LONG TIME IN TOILET. BLADDER SCANNED AFTERWORD AND SHOWED 400 ML. PT NOW BACK TO BED RESTING. 02 SAT CHECKED 96% ON ROOM AIR AFTER VOIDING. BED ALARM ON, CALL LIGHT IN REACH.
--- NOTE | 2018-09-27 12:45 | NUR ---
christine visited with pt marco and bedside nurse rt " would like to meet with and cm on thursday to explain to mom that it is not recommended that she alcohol and why harmful to her, thursday morning would be ok to meet."/marco. bedside nurse to set up meeting with and family for thursday AM, she had aa support in past. christine provided safe net packet, [facility] information for support after dc home.
--- NOTE | 2018-09-27 16:07 | NUR ---
I have reviewed the documentation by MECCA CACERES from 09/27/18 to 09/27/18 and I concur with it. PIPO SANCHEZ
--- NOTE | 2018-09-27 18:19 | NUR ---
ASSUMED CARE AT APPROX 0715. PATIENT ALERT. ORIENTED TO PERSON, TIME. FORGETFUL. CONFUSED AT TIMES. CAN BE IMPULSIVE. MONITORED MORE FREQUENTLY THAN HOURLY ROUNDS. FALL PRECAUTIONS IN PLACE. PATIENT NPO, TUBE FEEDINGS AND FLUSHED COMPLETED PER ORDERS. PATIENT ASSISTED <25% WITH TUBE FEEDING, UNABLE TO MANAGE AT THIS TIME. COMMUNICATED TO SON PATIENT UNABLE TO MANAGE FEEDING THIS DATE, AND REPORTED CONFUSION. SON STATES THIS IS NOT BASELINE, STATED PLAN IS FOR PATIENT TO D/C HOME THURSDAY. PATIENT NEEDING MODERATE CUEING, PER PT THIS IS CONSISTENT WITH PAST SESSIONS. BLOOD GLUCOSE MONITORED, NO TREATMENT NEEDED PER ORDERS. BLADDER SCANNED X2 THIS SHIFT; STRAIGHT CATH X1. PATIENT REMAINS UNABLE TO VOID WHEN TOILETED. DENIED HEADACHE THIS SHIFT, NO PAIN MEDICATION GIVEN. PATIENT RESTING IN BED. WILL CONTINUE TO MONITOR.
[2018-09-27 20:51] VITALS: BP 151/82
--- NOTE | 2018-09-28 01:01 | NUR ---
PT ALERT, CONFUSED AND IMPULSIVE. HAS BEEN GETTING UP FROM BED TO CHAIR SETTING OFF ALARMS FREQUENTLY. PT NOW APPEARS TO BE SLEEPING. PEG TUBE PATENT. DAY FEEDINGS WELL. 02 ON AT 1L PER NC. 02 SAT 98%. BLADDER SCAN 743 AT 0000. STRAIGHT CATHED FOR 850 ML CLEAR DARK YELLOW URINE. PT C/O HEADACHE. TYLENOL GIVEN AT HS AND PT SLEEPING UPON REASSESSMENT. MELATONIN ALSO GIVEN AT HS PER PT REQUEST FOR SLEEP. BED ALARM ON FOR SAFETY. PT CHECKED ON HOURLY ROUNDS.
[2018-09-28 07:30] VITALS: BP 170/77
--- NOTE | 2018-09-28 09:53 | HC ---
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 HISTORY OF PRESENT ILLNESS: This is a 78-year-old female patient with whom I am familiar from prior hospitalization. She has a history of osteoradionecrosis of the mandible has undergone multiple surgical procedures, antibiotic therapy as well as hyperbaric oxygen therapy. She was admitted to the hospital with shortness of breath, multifocal pneumonia and non-ST elevation AL. She has been admitted now for ongoing rehab following her acute hospitalization. I have been asked to see her with regard to wound care. The patient is awake, alert. Denies significant discomfort at this time. She had previous surgical intervention for her mandible at about a year ago. She has a PEG tube, but occasionally drinks coffee for pleasure. PAST MEDICAL HISTORY: Prior history of tongue cancer with subsequent radiation, possibly also chemotherapy, history of chronic aspiration, recent respiratory failure, non-ST segment elevation AL. PAST SURGICAL HISTORY: She has had previous hysterectomy and appendectomy. She has a history of hypertension. SOCIAL HISTORY: The patient is a previous smoker. No history of alcohol use. FAMILY HISTORY: Noncontributory. ALLERGIES: None. MEDICATIONS: Include Synthroid, [place], alprazolam, metoclopramide, Prilosec, Zocor, Elavil, Zantac, omega 3, DuoNeb, Salagen, Prolia and Biotin. REVIEW OF SYSTEMS: CONSTITUTIONAL: The patient denies fever, chills, or weight loss. NEUROLOGICAL: The patient denies focal weakness, numbness or tingling. EYES: The patient denies visual changes, redness or drainage. ENT: The patient denies earache, nasal drainage. She does have the radiation exposure in 2000 for tongue cancer as well as surgical interventions with subsequent osteoradionecrosis of the mandible with surgical intervention and hyperbaric oxygen therapy. [address] [address] CONSULTATION Name: ALYSE STEVENS Room #: 512-P [facility].#: [id number] Admission: 09/20/18 ������������������ Attend Phys: Renato Coello MD Discharge: ������������������ Date of : 42 Report #: [id number] CARDIOVASCULAR: The patient denies chest pain, palpitations, or diaphoresis. PULMONARY: The patient denies cough or shortness of breath. GASTROINTESTINAL: The patient denies nausea, vomiting, diarrhea or abdominal pain. ORTHOPEDIC: The patient does have some blisters on her leg. Other systems in a 14-point review of systems are negative. PHYSICAL EXAMINATION: VITAL SIGNS: At this time include temperature 97.8, pulse 78, respiratory rate 20, blood pressure 142/72. GENERAL: This is a chronically ill-appearing female patient who appears to be in minimal distress. HEENT: Head is normocephalic. Nose is clear. Jaw demonstrates a small ulceration to the angle of the mandible on the left side. It appears improved since the last time I have seen her. Also, noted under ENT exam, a small eschar to the lateral portion of her left ear. NECK: Supple. LUNGS: Clear. HEART: Regular rhythm. ABDOMEN: Soft. Bowel sounds present. EXTREMITIES: Examination of the lower extremities demonstrates a small blistered area on the left knee and right calf area. CLINICAL IMPRESSION: 1. Unstageable pressure ulceration to the left ear. 2. Surgical wound to the left mandibular region following osteoradionecrosis of the mandible. 3. History of tongue cancer with external beam radiation therapy and osteoradionecrosis as a complication and stage 2 pressure ulcer of the left knee and right calf. RECOMMENDATIONS: At this point in time, we recommend Betadine paint to the left ear, bordered foam to the left mandible as well as to the right calf and left knee areas. Recommend a barrier cream to the sacral region, low air loss mattress, q. 2 hour turning and repositioning, aggressive nutritional support. I appreciate having been asked to see her in consultation. ��������������������������������������������� <ELECTRONICALLY SIGNED> ���������������������������������������� By: Remi Camarillo MD ��������������������������������������������� 09/28/18 0953 [id number] Remi Camarillo MD /nt
--- NOTE | 2018-09-28 11:14 | NUR ---
ASSUMED CARE AT 0700. PATIENT IS ALERT AND ORIENTED TO PERSON. PATIENT SHARMA'S, GLOVE TURNER AND FORMER ARE EQUAL. LUNGS ARE COARSE AND DEMINISHED WITH OCCASIONAL COUGH. 02 AT 1L PER N/C. WILL TRY TO DECREASE TO R.A. SOON POSSIBLE. ABD IS SOFT WITH BSX4. UP IN BED. ABD IS SOFT WITH BSX4. G.T. IS PATIENT AND INTACT. T.F. COMPLETED WITHOUT PROBLEMS. PATIENT CONTINUES TO BLADDER SCANS AND STG CATH Q 6 HOURS. IF U.O. IS >[address] [place] PER N.P. PATIENT HAS OPTIFOAM TO FACE, LEFT LEG AND RIGHT LEG. FALL AND SAFETY PROTOCOLS IN PLACE. C/O [place]. MEDICATED WITH PRN PAIN MED. CONTINUES TO PROGRESS TOWARDS D/C GOAL.S WILL CONTINUE TO MONITER.
--- NOTE | 2018-09-28 11:52 | PLAN ---
[facility] [place] [address] REHAB UNIT PLAN OF CARE Name: ALYSE STEVENS Room #: 512-P ADM IN M.R.#: [id number] Admission: 09/20/18 ������������������ Attend Phys: Renato Coello MD Discharge: ������������������ Date of : 42 Report #: [id number] THIS REPORT FOR: //name// CC: Renato Coello [facility] physician/PCP DATE OF SERVICE: 09/22/2018 PROGRESS NOTE AND OVERALL PLAN OF CARE SUBJECTIVE: The patient is seen back today in followup. She is in no distress. Temperature is 36.6, pulse is 70, respirations 20, and blood pressure is 139/75. She is pleasant, working in therapies with transfers, contact guard, gait is min assist 200 feet front-wheeled walker. She is working on stairs. She has moderate cognitive deficits, [id number] memory deficits. ASSESSMENT: 1. Critical illness myopathy. 2. Acute encephalopathy that appears improved/resolved. 3. Acute hypoxic respiratory failure with pneumonia. 4. Sepsis. 5. Influenza A and B, status post treatment. 6. Non-ST elevation myocardial infarction. 7. Transaminitis. 8. History of tongue cancer with dysphagia, status post PEG tube. 9. Chronic left jaw sinus infection. 10. Protein-calorie malnutrition. 11. Electrolyte abnormalities. PLAN: The overall plan of care is based on the preadmission screen, post-admission physician evaluation, and information garnered from therapy assessments. 1. Estimated length of stay is probably at least 7-10 days. 2. Medical prognosis is reasonably good. 3. Anticipated interventions include would be the interdisciplinary acute inpatient rehabilitation program with the goal of maximizing her functional independence, so she can hopefully return back to her prior living situation. 4. Discharge destination would be back to her house where she lives alone. She does have a caregiver that is involved and has an involved son and will likely need some increased assistance at least initially. 5. Expected therapy by discipline includes PT, OT, and speech 1 hour per day each five days a week throughout the duration of the acute inpatient [address] [address] REHAB UNIT PLAN OF CARE Name: ALYSE STEVENS Room #: 512-P [facility] IN M.R.#: [id number] Admission: 09/20/18 ������������������ Attend Phys: Renato Coello MD Discharge: ������������������ Date of : 42 Report #: [id number] rehabilitation stay. We may be able to taper off some of the speech therapy depending upon how she does functionally and use more PT and OT. ��������������������������������������������� <ELECTRONICALLY SIGNED> ���������������������������������������� By: Renato Coello MD ��������������������������������������������� 09/28/18 1152 0903 [id number] Renato Coello MD /PMT
--- NOTE | 2018-09-28 11:52 | H ---
[facility] [place] [address] HISTORY AND PHYSICAL Name: ALYSE STEVENS Room #: 512-P ADM IN M.R.#: [id number] Admission: 09/20/18 ������������������ Attend Phys: Renato Coello MD Discharge: ������������������ Date of : 42 Report #: [id number] THIS REPORT FOR: //name// CC: Renato Coello [facility] physician/PCP DATE OF SERVICE: 09/20/2018 HISTORY AND PHYSICAL/POST ADMISSION PHYSICIAN EVALUATION: HISTORY OF PRESENT ILLNESS: The patient is a 78-year-old female originally admitted to [facility] 09/10/2018 with increased shortness of breath, noted to have a fever of 102, diagnosed with multifocal pneumonia. Influenza A and B, acute on chronic respiratory failure, sepsis, non-ST elevation ME. She had a prolonged stay in the intensive care unit, treated with IV vancomycin and Zosyn for her sepsis given Solu-Medrol. She has a premorbid old PEG tube from throat cancer and has chronic dysphagia from radiation. She was noted to have significant weakness and decrease in her functional abilities and has now been admitted for acute in-hospital inpatient rehabilitation. She has a diagnosis of critical illness myopathy with her prolonged ICU stay and treatment for sepsis and multiple medical comorbidities. She also had encephalopathy, which appears improved/resolved. PAST MEDICAL HISTORY: As noted above. She has a history of chronic aspiration. She apparently gave herself own PEG tube feedings at home. There is a history of left jaw sinus infection. Prior history of tongue cancer or throat cancer, status post radiation treatment. History of hypertension, elevated cholesterol, hypothyroidism, depression. PAST SURGICAL HISTORY: Includes the above noted surgery, history of appendectomy, hysterectomy. MEDICATIONS: Please see the full medication listing. This is noted to have include vitamins, herbals, and supplements. ALLERGIES: No known drug allergies. HABITS: There is a history of past tobacco abuse, 1-1/2 packs per day, quit in 1997. There is a history of alcohol usage giving herself an unknown amount of vodka through the PEG tube. Son upon previously being asked was uncertain regarding the amount. FAMILY HISTORY: Noncontributory. SOCIAL HISTORY: Lives in a house alone. No steps. Did not utilize gait aids. Apparently did some driving in the community. She does have a caregiver who [facility] [address] [place] [address] HISTORY AND PHYSICAL Name: ALYSE STEVENS Room #: 512-P [facility] IN .R.#: [id number] Admission: 09/20/18 ������������������ Attend Phys: Renato Coello MD Discharge: ������������������ Date of : 42 Report #: [id number] comes in 2 times a week to assist with IADLs and to assist with phone calls as the patient has significant communication deficits with her prior throat/tongue cancer. Her son is noted to be a respiratory therapist here at [facility]. REVIEW OF SYSTEMS: No current complaints of chest pain, shortness of breath, abdominal discomfort. She has the chronic dysarthria. No focal extremity pain complaints. No note of any bowel or bladder changes. She does have the significant weakness. PHYSICAL EXAMINATION: GENERAL: She is a pleasant 78-year-old white female in no obvious distress. VITAL SIGNS: Last recorded temperature 97.1, pulse 64, respirations 20, blood pressure 118/60. She is alert, pleasant. HEENT: Revealed some bifacial weakness, which appears to be related to her prior throat surgery. She has definite dysarthria and appears to have some hoarseness as well. She can follow basic 1 step commands without difficulty. She is on nasal prong O2, 3 liters. She was not on any O2 at home. CHEST: Some decreased breath sounds throughout. CARDIOVASCULAR: Sounded regular rate and rhythm. ABDOMEN: She is slender. Bowel sounds positive, nontender. GENITOURINARY AND RECTAL: Deferred. EXTREMITIES: She does have functional range of motion of both upper extremities. Strength is a grade 4- to 3+/5. DTRs are trace to 1. Tone is intact. Lower extremities functional range of motion, strength is grade 4-/5. DTRs are trace to 1. Tone is intact. She was able to ambulate a short distance in therapies, front-wheeled walker. Has some decreased balance with some trunk sway. ASSESSMENT: This is a 78-year-old white female with the following problem list: 1. Critical illness myopathy. 2. Acute encephalopathy that appears improved/resolved. We will have speech therapy involved not only to assess swallowing, but also cognition. 3. Acute hypoxemic respiratory failure with pneumonia, positive rhinovirus. 4. Sepsis. 5. Influenza A and B status post treatment. 6. Non-ST elevation myocardial infarction. 7. Transaminitis. 8. History of tongue cancer with dysphagia, status post PEG tube. 9. Chronic left jaw sinus infection. 10. Protein-calorie malnutrition. 11. Electrolyte abnormalities. PLAN: The patient is admitted for acute in-hospital inpatient rehabilitation. From a post-admission physician evaluation perspective, there are no relevant changes since the preadmission screening. Please see the above review of prior [facility] [address] [place] [address] HISTORY AND PHYSICAL Name: ALYSE STEVENS Room #: 512-P ADM IN Yemi.#: [id number] Admission: 09/20/18 ������������������ Attend Phys: Renato Coello MD Discharge: ������������������ Date of : 42 Report #: [id number] and current medical and functional conditions and comorbidities. Please see the patient's previous and current functional status. As far as risk of complications, the patient has multiple medical comorbidities as noted above. Initial plan of care involves the interdisciplinary acute inpatient rehabilitation program with the goal of maximizing the patient's functional independence. Measurable functional goals would be for her to become modified independent with transfers, mobility, ADLs that she can hopefully return back to her prior living situation. Prognosis is reasonably good with estimated length of stay probably at least 7-10 days, pending progress. Potentially longer if warranted. Potential barriers would include her multiple medical comorbidities and decreased functional status. The patient meets diagnostic criteria for an acute in-hospital inpatient rehabilitation stay. She meets the medical necessity criteria. We will have the food consultant physicians continue to follow. She does have the tolerance for therapies and has appropriate discharge goals back to the home setting. ��������������������������������������������� <ELECTRONICALLY SIGNED> ���������������������������������������� By: Renato Coello MD ��������������������������������������������� 09/28/18 [id number] Renato Coello MD /nt
--- NOTE | 2018-09-28 13:07 | NUR ---
team meeting, reccomendation, dc 09/30/18 , likely snf rt changes in medication condition, changes in memory. unable to do tf bolus that she was able to assist with yesterday , needing cohen cath. will need 24hr/supervision and cg at this time.
[2018-09-28 15:13] LABS: HEMOGLOBIN 9.9 gm/dL (12.0-15.0); MCH 32.4 pg (26.0-34.0); MCHC 33.1 g/dL (28.0-37.0); RBC 3.07 mil/uL (4.20-5.00); RDW 18.4 % (10.5-14.5)
[2018-09-28 15:22] LABS: CALCIUM 9.3 mg/dL (8.5-10.1); CREATININE 0.7 mg/dL (0.6-1.0); MAGNESIUM 1.8 mg/dL (1.8-2.4); POTASSIUM 3.9 mmol/L (3.5-5.1)
[2018-09-28 15:34] LABS: URINE BILIRUBIN NEGATIVE (Negative); URINE BLOOD NEGATIVE (Negative); URINE CLARITY CLEAR; URINE COLOR YELLOW; URINE GLUCOSE-RANDOM* NEGATIVE (Negative); URINE KETONES NEGATIVE (Negative); URINE LEUKOCYTES-REFLEX TRACE (Negative); URINE PROTEIN (DIPSTICK) NEGATIVE (Negative); URINE SPECIFIC GRAVITY 1.015 (1.005-1.035); URINE UROBILINOGEN 0.2 E.U./dl (0.2-1.0)
[2018-09-28 15:36] LABS: URINE NITRITE-REFLEX POSITIVE (Negative)
[2018-09-28 15:46] LABS: BACTERIA-REFLEX >30 Many /HPF (None Seen); CASTS None Seen /LPF (None Seen); SQUAMOUS 0-3 Few /LPF (0-3); URINE RBC 3-10 Few /HPF (0-2); URINE WBC-REFLEX 6-15 Few /HPF (0-5)
--- NOTE | 2018-09-28 15:46 | NUR ---
WOUND FOLLOW UP: PT. WAS SEEN TODAY BY DR. WOOD AND MYSELF. PT. WOUNDS ARE ALL CLINICALLY BETTER UPON TODAYS ASSESEMENT. RECOMMENDATIONS: CONTINUE WITH CURRENT PLAN OF CARE. PT. AND STAFF NURSE WERE INSTRUCTED ON PLAN OF CARE.
[2018-09-28 15:47] LABS: AMORPHOUS URATES Moderate /LPF (None Seen)
[2018-09-28 19:55] VITALS: BP 168/70
--- NOTE | 2018-09-29 01:49 | NUR ---
PT ALERT AND ORIENTED X 1, CONFUSED. IMPULSIVE DURING EVENING HOURS. SETTING OFF BED ALARM FREQUENTLY TRYING TO GET TO BATHROOM. REMINDED PT THAT SHE HAS VILLANUEVA CATHETER IN PLACE. BECAMED VERY AGITATED AT ONE POINT. CALLED PT'S SON AND HE SPOKE WITH HER ON THE PHONE. PT HAS BEEN CALM AND RESTING SINCE. VILLANUEVA PATENT DRAINING ADEQUATE AMTS CLEAR YELLOW URINE. PEG TUBE PATENT. DAY FEEDINGS WELL. PT C/O HEADACHE. TYLENOL GIVEN AT START OF SHIFT WITH PARTIAL PAIN RELIEF NOTED. MELATONIN GIVEN AT HS FOR SLEEP. RFA SL INTACT AND PATENT. PT STARTED ON IV ANTIBIOTICS AT HS. BED ALARM ON FOR SAFETY. PT APPEARS TO BE SLEEPING ON HOURLY ROUNDS.
[2018-09-29 06:12] LABS: ABSOLUTE NEUTROPHILS 5.6 thou/uL (1.4-8.2); EOSINOPHILS 0.3 % (0.0-3.0); HEMATOCRIT 31.6 % (37.0-47.0); HEMOGLOBIN 10.6 gm/dL (12.0-15.0); LYMPHOCYTES 9.8 % (24.0-44.0); MCH 33.1 pg (26.0-34.0); MCHC 33.6 g/dL (28.0-37.0); MCV 98.3 fL (80.0-100.0); MONOCYTES 5.6 % (1.0-8.0); PLATELET COUNT 279 thou/uL (150-400); POLYS 83.3 % (36.0-66.0); RBC 3.21 mil/uL (4.20-5.00); RDW 17.8 % (10.5-14.5); WBC 6.8 thou/uL (4.0-11.0)
[2018-09-29 06:36] LABS: CALCIUM 9.3 mg/dL (8.5-10.1); CREATININE 0.5 mg/dL (0.6-1.0); POTASSIUM 3.5 mmol/L (3.5-5.1); TOTAL BILIRUBIN 0.1 mg/dL (<0.1-1.0); TOTAL PROTEIN 6.1 g/dL (6.4-8.2)
[2018-09-29 08:15] VITALS: BP 172/77
--- NOTE | 2018-09-29 08:45 | NUR ---
I have reviewed the documentation by MECCA CACERES from 09/28/18 to 09/28/18 and I concur with it. PIPO SANCHEZ
--- NOTE | 2018-09-29 09:58 | NUR ---
cm visited with dr martinez, son marco rt dcp. son agree with dcp snf, looked and [facility] and would like referral sent there and will try to tour [facility] location as well for 2nd choice. pt home o2 from [facility] and home tube feeding through [facility] cm visited with remy and son at bedside rt going to [facility] for cont rehab and to allow body to more healing, see if can urinate with out cohen cath and be stronger when goes home with ch[facility]. education with pt and son that his is short team rehab, not sending her to ltc. " ok then so to son is ok"/remy. will cont following as needed for dc needs.
[2018-09-29 14:52] VITALS: BP 124/61
--- NOTE | 2018-09-29 14:54 | NUR ---
PT ALERT AND ORIENTED TIMES FOUR. VSS, 99%RA. C/O HEADACHE PRN PAIN MEDICATION GIVEN WITH GOOD RELEIF. TUBE FEEDING PER PEG ORDERED. PT WORKED VERY WELL WITH PT/OT. WALKED AROUND THE UNIT WITH PT. PARKER AT BEDSIDE THIS SHIFT. PT SLOWLY PROGRESSING TOWARDS POC GOALS.
[2018-09-29 19:50] VITALS: BP 131/65
--- NOTE | 2018-09-30 03:22 | NUR ---
PATIENT FELT HUNGER AT HS WITH BLOOD SUGAR CHECK = 74. IMMEDIATELY FELT BETTER AFTER 4 OUNCES APPLE JUICE THROUGH G-TUBE. MEDS, 100 CC WATER AND ONE HALF CAN OF TWOCAL GIVEN 20 MINUTES LATER, THE OTHER HALF CAN PLUS 50 CC OF WATER GIVEN AN HOUR AFTER THAT. IV ANTIBIOTIC GIVEN THROUGH PATENT RFA IV SITE. PLEASANT AND CALM
[2018-09-30 08:58] VITALS: BP 126/74
--- NOTE | 2018-09-30 09:42 | NUR ---
FAXED REFERRAL TO [facility] LEFT MS WITH JONNA IN ADM. OF REFERRAL FAXED AND THAT PT. TO DC 10/01. DCP TO FOLLOW.
--- NOTE | 2018-09-30 15:42 | NUR ---
I have reviewed the documentation by MECCA CACERES from 09/30/18 to 09/30/18 and I concur with it. PIPO SANCHEZ
--- NOTE | 2018-09-30 15:58 | NUR ---
[facility] able to accept for skilled at dc. cm notified 5n team, bedside nurse, and pt son. chart copy requested. facility plans dc to be in afternoon. bedside nurse on day of dc to [phone]. pt will be able to go by wheel chair and oxygen. will cont following as needed for dc needs.
--- NOTE | 2018-09-30 16:02 | NUR ---
PATIENT IS ALERT AND ORIENTED X2-3, HAS PERIODS OF FORGETFULNESS AND CONFUSION. G-TUBE PATIENT, NO RESIDUAL, PEG TUBE SITE CLEANED. LUNGS CLEAR TO AUSCULTATIION, BS+X4, ABD SOFT, NON-TENDER TO TOUCH. PATIENT REMAIN NPO, TUBE FEEDING GIVEN DIRECTED. MEDICATION CRUSHED, GIVEN VIA G-TUBE. AM BLOOD SUGAR 70, NO INSULIN GIVEN, LUNCH TIME BLOOD SUGAR 158, 3UNIT OF INSULIN GIVEN PER SLIDING SCALE ORDER. PATIENT DENIES HAVING PHYSICAL PAIN, PATIENT IS ABLE TO AMBULATE SHORT DISTANCE WITH ASSIST OF STAFF AND ROLLER WALKER. VILLANUEVA CATH PATIENT OF YELLOW URINE. PATIENT DENIES HAVING PHYSICAL PAIN, NO CONCERN VOICED AT THIS TIMES, WILL CONTINUE TO MONITOR
[2018-09-30 21:15] VITALS: BP 102/60
--- NOTE | 2018-10-01 03:34 | NUR ---
PATIENT TURNING SELF IN BED, PEG TUBE PATENT FOR BOLUS TUBE FEEDING, NO RESIDUAL. SMALL AMOUNT OF DRAINAGE AT SITE, GAUZE SPONGE UNDER BAUTISTA, WILL MONITOR. PATIENT IN GOOD SPIRITS, WATCHING NEWS ON TV AND READING MAGAZINE. VILLANUEVA TO CHEIKH, YELLOW URINE
[2018-10-01 07:45] VITALS: BP 149/82
[2018-10-01 09:12] VITALS: BP 149/82
[2018-10-01] MEDS ORDERED: PREVALITE PACKET4 GM PO (11:23)
--- NOTE | 2018-10-01 11:39 | NUR ---
PT. DISCHARGING TODAY TO [facility] FOR A SKILLED STAY. FAXED DC ORDERS/SUMMARY TO FACILITY AND SPOKE WITH ADM. AND THEY RECEIVED DC ORDERS AND ARRANGED WC VAN FOR 1400 TODAY. NOTIFIED PT'S SON BRONWYN OF DISCHARGE AND TIME OF TRANSPORT. HE WILL MEET UP WITH PT. AT [facility]. UNIT NOTIFIED AND CHART COPY PER US. RN TO CALL REPORT TO [phone].
--- NOTE | 2018-10-01 14:12 | NUR ---
WOUND FOLLOW UP: PT. WAS SEEN TODAY BY DR. WOOD AND MYSELF. PT. WOUNDS ARE ALL STABLE AND HAVE GREATLY IMPROVED SINCE ADMISSION. RECOMMENDATIONS: CONTINUE WITH CURRENT PLAN OF CARE. PT. AND STAFF NURSE WERE INSTRUCTED ON PLAN OF CARE.
--- NOTE | 2018-10-01 14:35 | NUR ---
DISCHARGED TO [facility] VIA W/C VAN. VERY PLESANT AND COOPERTIVE. PET INTACT. REMAINS NPO. AAAOX4. LUNGS CLEAR AND RESP EVEN AND UNLABORED.
== END 2018-10-01 14:45 | DRG 91 ==
PROVIDERS: Internal Medicine; Nurse Practitioner; Nurse Practitioner Family; Specialist; ADMIT Physical Medicine & Rehabilitation
DX: G72.81 Critical illness myopathy (principal); A41.9 Sepsis, unspecified organism; J11.00 Influenza due to unidentified influenza virus with unspecified type of pneumonia; I21.4 Non-ST elevation (NSTEMI) myocardial infarction; J69.0 Pneumonitis due to inhalation of food and vomit; J96.22 Acute and chronic respiratory failure with hypercapnia; G93.40 Encephalopathy, unspecified; E46 Unspecified protein-calorie malnutrition; N39.0 Urinary tract infection, site not specified; M86.8X8 Other osteomyelitis, other site; Z68.1 Body mass index [BMI] 19.9 or less, adult; R74.0 Nonspecific elevation of levels of transaminase and lactic acid dehydrogenase [LDH]; I10 Essential (primary) hypertension; L89.890 Pressure ulcer of other site, unstageable; M27.2 Inflammatory conditions of jaws; L89.892 Pressure ulcer of other site, stage 2; E78.00 Pure hypercholesterolemia, unspecified; E03.9 Hypothyroidism, unspecified; F32.9 Major depressive disorder, single episode, unspecified; E87.8 Other disorders of electrolyte and fluid balance, not elsewhere classified; R53.81 Other malaise; M81.0 Age-related osteoporosis without current pathological fracture; E83.42 Hypomagnesemia; E87.6 Hypokalemia; D64.9 Anemia, unspecified; R13.10 Dysphagia, unspecified; L89.151 Pressure ulcer of sacral region, stage 1; R23.8 Other skin changes; R33.9 Retention of urine, unspecified; B96.20 Unspecified Escherichia coli [E. coli] as the cause of diseases classified elsewhere; Z93.1 Gastrostomy status; Z85.810 Personal history of malignant neoplasm of tongue; Z92.3 Personal history of irradiation; Z92.21 Personal history of antineoplastic chemotherapy; Z90.710 Acquired absence of both cervix and uterus; Z90.49 Acquired absence of other specified parts of digestive tract; Z79.899 Other long term (current) drug therapy
CPT/HCPCS: 10112

== ENCOUNTER 2018-10-22 08:01 | Emergency (ER) | payer OTHER ==
[~2018-10-22] VITALS: Ht 170.2 cm; Wt 49.9 kg
[~2018-10-22 08:01] MED LIST changes: +AMLODIPINE BESYL5 M1 PO; +ASPIRIN325 PO; +CARVEDILOL12.5 MG PO; +CEFDINIR300 MG PER TUBE; +COZAAR100 MG PO; -LEVOTHYROXINE0.05 MG PER TUBE; +METRONIDAZOLE500 M4 PER TUBE; +PREDNISONE 20 M20 M1 PER TUBE; +PREVALITE PACKET4 GM PO; +PULMICORT0.5 MG/21 INH; +SYNTHROID88 MCG PO; +TRAMADOL 50 MG50 MG PER TUBE
[2018-10-22] MEDS ORDERED: TUMS PER TUBE (08:18)
[2018-10-22] MEDS ORDERED: OXYBUTYNIN 5 MG5 M2 PO (08:30)
[2018-10-22] MEDS ORDERED: PULMICORT0.5 MG/22 INH (08:32)
[2018-10-22 10:53] VITALS: BP 145/63
[2018-10-24] MEDS ORDERED: AMITRIPTYLINE H25 M2 PER TUBE (19:40)
[2018-10-24] MEDS ORDERED: COZAAR 25 MG TA25 M1 PO (19:47)
[2018-10-24] MEDS ORDERED: OMERA CAPSULE1 EACH PER TUBE (19:49)
== END 2018-10-22 11:05 ==
LOC: ER 08:01
DX: T85.9XXA Unspecified complication of internal prosthetic device, implant and graft, initial encounter (principal); K94.29 Other complications of gastrostomy; I10 Essential (primary) hypertension; E78.00 Pure hypercholesterolemia, unspecified; E03.9 Hypothyroidism, unspecified; Y82.8 Other medical devices associated with adverse incidents; Y92.89 Other specified places as the place of occurrence of the external cause; Z87.01 Personal history of pneumonia (recurrent); Z85.810 Personal history of malignant neoplasm of tongue; Z87.891 Personal history of nicotine dependence; Z79.899 Other long term (current) drug therapy

== ENCOUNTER 2018-10-22 18:03 | Emergency (ER) | payer OTHER ==
[~2018-10-22] VITALS: Ht 162.6 cm; Wt 49.9 kg
[~2018-10-22 18:03] MED LIST changes: +OXYBUTYNIN 5 MG5 M2 PO; +PULMICORT0.5 MG/22 INH
[2018-10-22 20:33] VITALS: BP 156/75
[2018-10-24] MEDS ORDERED: AMITRIPTYLINE H25 M2 PER TUBE (19:40)
[2018-10-24] MEDS ORDERED: COZAAR 25 MG TA25 M1 PO (19:47)
[2018-10-24] MEDS ORDERED: OMERA CAPSULE1 EACH PER TUBE (19:49)
== END 2018-10-22 20:39 ==
LOC: ER 18:03
DX: K94.23 Gastrostomy malfunction (principal); I10 Essential (primary) hypertension; F32.9 Major depressive disorder, single episode, unspecified; E78.00 Pure hypercholesterolemia, unspecified; E03.9 Hypothyroidism, unspecified; Z90.710 Acquired absence of both cervix and uterus; Z90.49 Acquired absence of other specified parts of digestive tract; Z87.01 Personal history of pneumonia (recurrent)

== ENCOUNTER 2018-10-23 13:01 | Emergency (ER) | payer OTHER ==
[~2018-10-23] VITALS: Ht 162.6 cm; Wt 49.9 kg
[2018-10-23 15:47] VITALS: BP 167/73
[2018-10-24] MEDS ORDERED: AMITRIPTYLINE H25 M2 PER TUBE (19:40)
[2018-10-24] MEDS ORDERED: COZAAR 25 MG TA25 M1 PO (19:47)
[2018-10-24] MEDS ORDERED: OMERA CAPSULE1 EACH PER TUBE (19:49)
== END 2018-10-23 16:55 | disposition home or self-care (01) ==
LOC: ER 13:01
DX: Z43.1 Encounter for attention to gastrostomy (principal); Z87.891 Personal history of nicotine dependence; I10 Essential (primary) hypertension; E78.00 Pure hypercholesterolemia, unspecified; E03.9 Hypothyroidism, unspecified; F32.9 Major depressive disorder, single episode, unspecified; Z90.49 Acquired absence of other specified parts of digestive tract; Z90.710 Acquired absence of both cervix and uterus; Z87.01 Personal history of pneumonia (recurrent)

== ENCOUNTER 2018-10-24 08:57 | Emergency (ER) | payer OTHER ==
[~2018-10-24] VITALS: Ht 157.5 cm; Wt 49.9 kg
[2018-10-24 11:43] VITALS: BP 170/88
[2018-10-24] MEDS ORDERED: AMITRIPTYLINE H25 M2 PER TUBE ×2 (19:40)
[2018-10-24] MEDS ORDERED: COZAAR 25 MG TA25 M1 PO ×2 (19:47)
[2018-10-24] MEDS ORDERED: OMERA CAPSULE1 EACH PER TUBE ×2 (19:49)
== END 2018-10-24 11:43 | disposition home or self-care (01) ==
LOC: ER 08:57
DX: K94.23 Gastrostomy malfunction (principal); I10 Essential (primary) hypertension; E78.00 Pure hypercholesterolemia, unspecified; E03.9 Hypothyroidism, unspecified; Z85.818 Personal history of malignant neoplasm of other sites of lip, oral cavity, and pharynx; Z87.01 Personal history of pneumonia (recurrent); Z90.49 Acquired absence of other specified parts of digestive tract; Z90.710 Acquired absence of both cervix and uterus; Z87.891 Personal history of nicotine dependence; Z79.899 Other long term (current) drug therapy

== ENCOUNTER 2018-10-24 17:30 | Inpatient (IN) | payer OTHER ==
[~2018-10-24] VITALS: Ht 162.6 cm; Wt 47.2 kg
--- NOTE | ~2018-10-24 | HC ---
[facility] [place] [address] CONSULTATION Name: AMYCaroleALYSE W Room #: 420-P [facility] IN M.R.#: [id number] Admission: 10/24/18 ������������������ Attend Phys: Pola Hoang MD Discharge: 10/27/18 ������������������ Date of : 42 Report #: [id number] THIS REPORT FOR: //name// CC: Lorenzo Bell [facility] physician/PCP Pola Hoang DATE OF SERVICE: 10/27/2018 PALLIATIVE CARE CONSULTATION REQUESTING PHYSICIAN: Lorenzo Lisa MD. CHIEF COMPLAINT: The patient is a 78-year-old female who presented initially with dislodged PEG tube. HISTORY OF PRESENT ILLNESS: The patient is a 78-year-old female who presented initially on 10/24/2018 from [facility] after she had dislodged her PEG tube several times. It appears on a purposeful manner. However, the patient is unaware of this previous episode and unaware as to why she did this and states that this is not in an attempt at self-harm. It was replaced in the ED on the 10/24/2018. However, the patient then removed again. She was sent back with an abdominal binder. She removed the PEG tube again, also removed her Ocampo on the 10/22/2018. Additionally, she removed it several more times before being referred back to the hospital. The patient has a history of laryngeal cancer, has had a surgical procedure to remove this as well as chemo and radiation and subsequently had significant dysphagia. The patient has indicated to me that she may have had a tracheostomy, although her son adamantly denies this. He is a respiratory therapist as well. The patient reports at this current point in time, her biggest concern is that she wants to drink some water, although she is essentially strict n.p.o. Occasionally, I believe she had some office, although this was unknown if this actually occurred. The patient denies significant pain currently. The patient again denies that she was in any attempt to harm herself. PAST MEDICAL HISTORY: Laryngeal cancer, status post excision, radiation and chemotherapy. She has what appears to have dementia, also hypothyroidism and hypertension. PAST SURGICAL HISTORY: Appendectomy, cataract surgery, again laryngeal surgery, which is extensive in nature. MEDICATIONS: Reglan, levothyroxine, ranitidine 150 mg twice daily, omega-3, trazodone 50 mg at bedtime, pilocarpine 5 mg t.i.d., DuoNebs, Prolia, melatonin, vitamin B12 of 500 mcg daily, Mag-Ox 400 mg daily, Xanax 0.5 mg at bedtime [address] [address] CONSULTATION Name: ALYSE STEVENS Room #: 420-P [facility] IN M.R.#: [id number] Admission: 10/24/18 ������������������ Attend Phys: Pola Hoang MD Discharge: 10/27/18 ������������������ Date of : 42 Report #: [id number] p.r.n. apparently for insomnia. Additionally, she was to be discharged with cefdinir and Flagyl, also Norvasc, aspirin, gabapentin, Pulmicort. Also, she is on Ditropan 5 mg daily as well as Elavil 50 mg at bedtime and losartan. FAMILY HISTORY: Noncontributory. SOCIAL HISTORY: Currently listed as full code. The patient adamantly denies that she would desire to have any kind of ventilatory support or mechanical ventilator of any kind. She did not know as far as CPR initially prior to our discussion. Currently living in [facility]. REVIEW OF SYSTEMS: GENERAL: Denies any fevers or chills. HEENT: Denies any pharyngeal pain at this time. CARDIOVASCULAR: Denies chest pain, palpitations or edema. RESPIRATORY: Denies shortness of breath currently. PHYSICAL EXAMINATION: VITAL SIGNS: Temperature 36.5, pulse 94, respirations 18, blood pressure 183/89, 89% on room air during my talk. GENERAL: The patient is alert. She is at least oriented to self. She is in no acute distress. HEENT: Noticeable scarring from previous procedure. RESPIRATORY: No acute distress at all. CARDIOVASCULAR: Regular rate and rhythm without murmur. ABDOMEN: PEG tube currently in place. ASSESSMENT AND PLAN: 1. Dysphagia. I discussed extensively with both the patient and the patient's son via phone at his request. The patient at this point in time did appear to have capacity for decision making with regards to her code status. She was stating that she would not want ventilatory support. I discussed that if CPR were to be commenced, it is most likely in conjunction with ventilatory support. She states that if that is a possibility that she would not want to have CPR. Son wishes to discuss this further prior to making her DNR status. She has to go back to [facility] today. Additionally, I did discuss the possibility of aspiration pneumonia recurrence, which she has had several times prior if she to continue on any kind of p.o. intake including water. The patient states understanding of this and was able to repeat to me that she could possibly if she were to acquire that kind of pneumonia or required repeat treatment. The patient does report that she would prefer to not have to require treatment for pneumonia, but at this point in time, would want hospitalization if necessary. Additionally, I discussed to her recurrently having her PEG tube removed, though she does not remember pulling at herself. She states that she does not know what she would do if this continues to happen and she were to have her PEG tube out. She is concerned with regards to whether or not she wants to continue [facility] [address] [place] [address] CONSULTATION Name: AMYALYSE Lam Room #: 420-P [facility] IN M.R.#: [id number] Admission: 10/24/18 ������������������ Attend Phys: Pola Hoang MD Discharge: 10/27/18 ������������������ Date of : 42 Report #: [id number] forward with having this replaced. She will discuss this further with her son. I do feel that there is some significant changes that could be made to her medications to possibly not promote this situation as she is likely significantly confused with dementia and possibly delirium. I did recommend to son and the patient, which are both amenable to discontinue ranitidine and change to omeprazole via PEG tube; discontinue Ditropan, discontinue Elavil, additionally discontinue trazodone and change to 25 mg and maybe discontinue altogether in the future, may consider switching from DuoNeb to albuterol. Additionally, I discussed the possibility of whether pilocarpine is necessary for the patient as it can also induce confusion. Also, the possibility of whether Xanax is necessary for the patient as it can induce confusion as well. They will consider these in the future. I have discussed this with the nursing staff at her facility and spent approximately 40 minutes on advanced care planning today with all these parties involved as well as our case management. 2. Dementia again with possible superimposed delirium. I believe the changes above may help with her overall status and confusion and possibility for removing her own PEG tube. 3. History of laryngeal cancer. Again this has led to significant difficulties as above and again at this point in time, I did discuss the possibility of palliative care measures, although she did not currently have apparently active laryngeal cancer. Certainly, I am concerned about her dysphagia and the possibility of aspiration pneumonia in the future. I did discuss that they could contact me at any time and that I left them my contact information. They are not currently interested in hospice care services. ��������������������������������������������� ���������������������������������������� By: ��������������������������������������������� [id number] Carson Garza DO /nt
[2018-10-24 17:33] VITALS: BP 201/95
[2018-10-24 18:31] LABS: ABSOLUTE NEUTROPHILS 4.4 thou/uL (1.4-8.2); BASOPHILS 0.6 % (0.0-2.0); EOSINOPHILS 0.7 % (0.0-3.0); HEMATOCRIT 35.4 % (37.0-47.0); HEMOGLOBIN 11.8 gm/dL (12.0-15.0); LYMPHOCYTES 16.8 % (24.0-44.0); MCH 31.7 pg (26.0-34.0); MCHC 33.3 g/dL (28.0-37.0); MCV 95.3 fL (80.0-100.0); MONOCYTES 9.9 % (1.0-8.0); PLATELET COUNT 291 thou/uL (150-400); RBC 3.71 mil/uL (4.20-5.00); RDW 16.8 % (10.5-14.5); WBC 6.1 thou/uL (4.0-11.0)
[2018-10-24 18:40] LABS: CALCIUM 9.8 mg/dL (8.5-10.1); CREATININE 0.7 mg/dL (0.6-1.0); POTASSIUM 3.2 mmol/L (3.5-5.1)
[2018-10-24 18:46] LABS: ALBUMIN 3.4 g/dL (3.4-5.0); TOTAL BILIRUBIN 0.3 mg/dL (<0.1-1.0); TOTAL PROTEIN 7.1 g/dL (6.4-8.2)
--- NOTE | 2018-10-24 18:58 | NUR ---
TALKED WITH SON, BRONWYN, BREANNE
[2018-10-24 19:35] LABS: URINE BILIRUBIN NEGATIVE (Negative); URINE BLOOD 3+ (Negative); URINE CLARITY HAZY; URINE GLUCOSE-RANDOM* NEGATIVE (Negative); URINE KETONES 1+ (Negative); URINE LEUKOCYTES-REFLEX 2+ (Negative); URINE NITRITE-REFLEX POSITIVE (Negative); URINE PROTEIN (DIPSTICK) NEGATIVE (Negative); URINE UROBILINOGEN 0.2 E.U./dl (0.2-1.0)
[2018-10-24 19:36] LABS: URINE COLOR YELLOW
[2018-10-24] MEDS ORDERED: AMITRIPTYLINE H25 M2 PER TUBE ×2 (19:40)
[2018-10-24] MEDS ORDERED: COZAAR 25 MG TA25 M1 PO ×2 (19:47)
[2018-10-24] MEDS ORDERED: OMERA CAPSULE1 EACH PER TUBE ×2 (19:49)
[2018-10-24 20:01] LABS: CASTS None Seen /LPF (None Seen); SQUAMOUS 0-3 Few /LPF (0-3); URINE RBC 3-10 Few /HPF (0-2); URINE WBC-REFLEX 6-15 Few /HPF (0-5)
[2018-10-24 20:02] LABS: AMORPHOUS PHOSPHATES Few /LPF (None Seen)
[2018-10-24 20:30] VITALS: BP 181/87
[2018-10-24 20:47] VITALS: BP 191/99
[2018-10-25] VITALS (7 sets, daily range): BP systolic 99–181; BP diastolic 62–87
--- NOTE | 2018-10-25 01:46 | NUR ---
PT IS ALERT TO SELF. PLEASANT AND COOPERATIVE. FORGETFUL. DENIES PAIN. PEG TUBE STILL IN PLACE, AWAITING GI INPUT BEFORE WE CAN USE IT.PT PULLED IV OUT. CLOSE MONITORING PROVIDED SO SHE DOES NOT TAMPER WITH VILLANUEVA CATHETER AND THE NEW PEG TUBE. PRN IV HYDRALAZINE GIVEN FOR ELEVATED BP. PT IS AFEBRILE. VILLANUEVA TO D/D WITH LIGHT YELLOW URINE.SCDS IN PLACE. IV K+ REPLACEMNET ONGOING. PT ALSO GETTING IV HYDRATION. WITH A CONGESTED COUGH. DIFFICULT TO UNDERSTAND SPEECH. L MANDIBULAR SWELLING-WOUNDCARE CONSULT IN PLACE.NO FURTHER CONCERNS AT THIS TIME.FALL PREC IN PLACE, CALL LIGHT WITHIN REACH.
[2018-10-25 05:54] LABS: CALCIUM 8.9 mg/dL (8.5-10.1); CREATININE 0.5 mg/dL (0.6-1.0); POTASSIUM 3.6 mmol/L (3.5-5.1)
--- NOTE | 2018-10-25 09:56 | NUR ---
RECEIVED PT CARE APPROX 0715. A/OX1-2. DENIES PAIN WHEN ASKED. NO NOTED SOA. NO NV. PT RESTING IN BED- FALL PREC. INTACT. WAITING FOR GI TO SEE PT. WILL CONT. TO MONITOR.
--- NOTE | 2018-10-25 12:17 | NUR ---
When tube feeds able to resume, recommend Two Luis E HN 1 can bolus QID which is compatible to pts home tube feeding. Recommend 200 ml water flush every 4 hrs once IVF are discontinued.
--- NOTE | 2018-10-25 14:23 | NUR ---
WOUND CONSULT: PT. WAS SEEN TODAY BY DR. WOOD AND MYSELF. PT. IS WELL KNOWN TO THE WOUND CARE TEAM. PT. HAS A CHRONIC STABLE ULCER TO LEFT JAW. ULCER LOOKS CLINICALLY BETTER TODAY. RECOMMENDATIONS: LEAVE OPEN TO AIR UNLESS DRAINAGE OCCURES THEN COVER WITH GAUZE. PT. AND STAFF NURSE WERE INSTRUCTED ON PLAN OF CARE.
--- NOTE | 2018-10-25 14:49 | NUR ---
INITIAL ASSESSMENT: Pt evaluated for d/c planning needs. Reviewed chart and spoke with nurse, pt and pt's son (RT Arnulfo at [facility]). Pt was hospitalized at [facility] in August and went to inpatient rehab on . She then went to [facility] on 10/01. Pt was there for about 2 weeks and then went to [facility] assisted living with [facility]. Spoke with bereavement coordinator at [facility]. She said pt has pulled out her PEG tube 4 times and also pulled out her cohen with balloon inflated. Pt has tube feed and is supposed to be strictly NPO. content coordinator at [facility] also said that pt is non-compliant with NPO status and continues to sneak drinks if no one is watching her. content coordinator also said she has spoken with pt's son/DPOA re: hospice and he is not ready at this time to pursue hospice. Will remain available to assist as needed.
[2018-10-25 16:35] LABS: INR 1.1; PROTIME 11.4 Seconds (9.3-11.4)
--- NOTE | 2018-10-26 03:51 | NUR ---
Assumed care of pt at 1900. Ocampo catheter in place. Pt attempts to pull catheter and IV out. NPO. Non-productive cough. IVF and antibiotics infusing. Fall precautions in place. Will continue to monitor.
[2018-10-26 04:55] VITALS: BP 184/86
[2018-10-26 07:35] VITALS: BP 167/73
--- NOTE | 2018-10-26 17:15 | NUR ---
WOUND FOLLOW UP: PT. WAS SEEN TODAY BY DR. WOOD AND MYSELF. NO CLINICALLY CHANGES TO REPORT AT THIS TIME. RECOMMENDATIONS: CONTINUE WITH CURRENT PLAN OF CARE. PT. AND STAFF NURSE WERE INSTRUCTED ON PLAN OF CARE.
[2018-10-26 17:19] VITALS: BP 199/93
--- NOTE | 2018-10-26 17:23 | NUR ---
Assumed pt care at 7am.Pt in bed resting but confused and constantly asking for water to drink.Oral care done and kept npo for peg tube placement today in radiology.Around 11am pt left per bed and returned one hour later.Pt resumed ivf as previously ordered.Dr Keller will be notify about pt return to floor post peg tube placement.Will continue to monitor.
--- NOTE | 2018-10-26 19:59 | HC ---
[facility] [place] [address] CONSULTATION Name: ALYSE STEVENS Room #: 420-P ADM IN M.R.#: [id number] Admission: 10/24/18 ������������������ Attend Phys: Pola Hoang MD Discharge: ������������������ Date of : 42 Report #: [id number] THIS REPORT FOR: //name// CC: Megan [facility] physician/PCP Pola Hoang DATE OF SERVICE: 10/25/2018 CHIEF COMPLAINT: Ulceration of the angle of the mandible on the left. HISTORY OF PRESENT ILLNESS: This is a 78-year-old female patient with whom I am familiar from prior hospitalization, who was admitted to the hospital yesterday having pulled her PEG tube and Ocampo catheter out. She has a history of tongue and throat cancer, status post radiation and has a history of chronic aspiration. She occasionally will drink coffee for pleasure. She has had a previous reconstructive mandibular intervention at [facility]. She has had a small draining sinus tract to the left lateral mandible since that time. She has had her PEG tube subsequently replaced. She has no specific complaints today. I have been asked to see her with regard to wound care. 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 SOCIAL HISTORY: The patient is a former smoker. No history of alcohol use. FAMILY HISTORY: Positive for lung cancer and vascular disease. ALLERGIES: None. MEDICATIONS: Include Omnicef, metronidazole, Coreg, Norvasc, aspirin, Ultram, Neurontin and Pulmicort. REVIEW OF SYSTEMS: Not obtainable due to the patient's dementia. She denies pain or shortness of breath. PHYSICAL EXAMINATION: VITAL SIGNS: Include pulse rate 93, respiratory rate of 20, blood pressure 171/87 and temperature 98.0. GENERAL: This is a chronically ill-appearing female patient, who appears to be in minimal distress. HEENT: Head normocephalic. Nose is clear. Throat demonstrates some previous [facility] [address] [place] [address] CONSULTATION Name: ALYSE STEVENS Room #: 420-P [facility] IN [facility].#: [id number] Admission: 10/24/18 ������������������ Attend Phys: Pola Hoang MD Discharge: ������������������ Date of : 42 Report #: [id number] radiation changes. There is a small ulceration at the angle of the left mandibular region on the left side. It is much smaller and jonnie since when I last saw her. NECK: Supple, otherwise. LUNGS: Clear. HEART: Regular rate and rhythm. ABDOMEN: Soft. Bowel sounds are present. Old PEG tube site appears to be closing nicely in the left lower quadrant. New PEG tube site is noted more to the right side of the midline. No evidence of active bleeding. EXTREMITIES: Examination of the lower extremities demonstrates previous ulcerations of the lower extremities are not closed. Sacral gluteal region is clear as well. CLINICAL IMPRESSION: 1. 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 2. History of lower extremity ulcerations, now resolved. 3. Mild protein-calorie malnutrition, much improved during this hospitalization, with an albumin of 3.4. RECOMMENDATIONS: At this point in time, continue with tube feeding when cleared. Continue with pressure prophylaxis with frequent turning and repositioning. She will need ongoing gentle cleansing of the ulcer on the mandible. I think we can leave it open to air at this point. I appreciate being asked to see her again in consultation. ��������������������������������������������� <ELECTRONICALLY SIGNED> ���������������������������������������� By: Remi Camarillo MD ��������������������������������������������� 10/26/18 1959 [id number] [id number] Remi Camarillo MD /nt
[2018-10-26 20:05] VITALS: BP 193/82
[2018-10-26 23:51] VITALS: BP 179/86
--- NOTE | 2018-10-27 03:37 | NUR ---
Assumed care of pt at 1900. Pt alert and oriented to self. Tylenol suppository administered at start of shift for c/o headache. NPO. Pt requests to drink water. Education provided. IVF and antibiotics infusing. Ocampo catheter in place. Peg tube in place. BP elevated. Hydralazine prn administered. Fall precautions in place. Will continue to monitor.
[2018-10-27 04:38] VITALS: BP 180/810; BP 180/90
[2018-10-27 07:28] VITALS: BP 183/89
[2018-10-27 09:32] VITALS: BP 183/89
--- NOTE | 2018-10-27 15:04 | NUR ---
PT. DISCHARGING TODAY BACK TO [facility] FAXED DC ORDERS/SUMMARY TO FACILITY SPOKE WITH DENISE IN ADM SHE RECEIVED DC ORDERS. FAMILY NOT ABLE TO TRANSPORT PT. AND FACILITY DOES NOT HAVE [id number] SO SET UP TRANSPORT VIA WC VAN WITH [facility]. NOTIFIED SON (BRONWYN) OF DC AND TIME OF TRANSPORT. UNIT NOTIFIED AND CHART COPY PER US. RN TO CALL REPORT TO [phone].
--- NOTE | 2018-10-27 16:30 | NUR ---
Pt in bed most of the time alert and oriented but forgetful at times. Dr Lisa here eaqrly this shift informed pt and son about [facility] today.Assessment completed.vss.Meds given per peg tube and well tolerated. Case johnny arranged for transport and pt dc per [facility] caren 1630.Dr Real saw pt prior to dc and informed pt son about care plan.
--- NOTE | 2018-10-27 16:53 | NUR ---
WOUND FOLLOW UP: PT. WAS SEEN TODAY BY DR. WOOD AND MYSELF. PT. WOUND REMAINS STABLE AND NON DRAINING. RECOMMENDATIONS: CONTINUE WITH CURRENT PLAN OF CARE. PT. AND STAFF NURSE WERE INSTRUCTED ON PLAN OF CARE.
== END 2018-10-27 17:09 | DRG 394 ==
LOC: ER 17:30 → 4E 19:22 → EROBS 19:22 → 4E 20:38
PROVIDERS: Nurse Practitioner Family; Physician Assistant; Radiology Vascular & Interventional Radiology; ADMIT Internal Medicine
PROC: 0D20XUZ Change Feeding Device in Upper Intestinal Tract, External Approach (ICD-10-PCS; principal; 2018-10-24)
DX: Z43.1 Encounter for attention to gastrostomy (principal); N39.0 Urinary tract infection, site not specified; E44.1 Mild protein-calorie malnutrition; Z68.1 Body mass index [BMI] 19.9 or less, adult; I16.0 Hypertensive urgency; F03.90 Unspecified dementia, unspecified severity, without behavioral disturbance, psychotic disturbance, mood disturbance, and anxiety; I10 Essential (primary) hypertension; E78.5 Hyperlipidemia, unspecified; F32.9 Major depressive disorder, single episode, unspecified; R47.02 Dysphasia; E03.9 Hypothyroidism, unspecified; L98.499 Non-pressure chronic ulcer of skin of other sites with unspecified severity; Z85.21 Personal history of malignant neoplasm of larynx; Z85.810 Personal history of malignant neoplasm of tongue; Z87.891 Personal history of nicotine dependence; Z92.3 Personal history of irradiation; Z92.21 Personal history of antineoplastic chemotherapy; Z87.01 Personal history of pneumonia (recurrent); Z90.49 Acquired absence of other specified parts of digestive tract; Z90.710 Acquired absence of both cervix and uterus; Z79.82 Long term (current) use of aspirin; Z79.899 Other long term (current) drug therapy; Z80.1 Family history of malignant neoplasm of trachea, bronchus and lung; Z82.3 Family history of stroke
CPT/HCPCS: 10084

== ENCOUNTER 2018-11-10 12:11 | Emergency (ER) | payer OTHER ==
[~2018-11-10] VITALS: Ht 162.6 cm; Wt 45.4 kg
[~2018-11-10 12:11] MED LIST changes: +OMERA CAPSULE1 EACH PER TUBE
[2018-11-10 13:03] VITALS: BP 106/52
== END 2018-11-10 13:30 ==
LOC: ER 12:11
DX: K94.23 Gastrostomy malfunction (principal); I10 Essential (primary) hypertension; E78.00 Pure hypercholesterolemia, unspecified; E03.9 Hypothyroidism, unspecified; F32.9 Major depressive disorder, single episode, unspecified; Z90.710 Acquired absence of both cervix and uterus; Z90.49 Acquired absence of other specified parts of digestive tract; Z87.891 Personal history of nicotine dependence; Y84.8 Other medical procedures as the cause of abnormal reaction of the patient, or of later complication, without mention of misadventure at the time of the procedure; Y82.8 Other medical devices associated with adverse incidents

== ENCOUNTER 2018-12-20 23:47 | Inpatient (IN) | payer OTHER ==
[~2018-12-20] VITALS: Ht 162.6 cm; Wt 45.5 kg
--- NOTE | ~2018-12-20 | HC ---
[facility] [place] [address] CONSULTATION Name: CORINEALYSE W Room #: 360-P ADM IN M.R.#: [id number] Admission: 12/21/18 ������������������ Attend Phys: Lesly Lauren Discharge: ������������������ Date of : 42 Report #: [id number] THIS REPORT FOR: //name// CC: MERVAT Blas MD Physician staff PALLIATIVE CARE CONSULTATION REQUESTING PHYSICIAN: Dr. Blas. CHIEF COMPLAINT: Aspiration pneumonia. HISTORY OF PRESENT ILLNESS: The patient is a 78-year-old female whom I have seen before on 10/27/2018 for similar circumstances. She presented with dyspnea and altered mental status from her assisted living center [facility]. At that time, she was noted to have aspiration pneumonia, also noted to have severe protein-calorie malnutrition. She has a history of PEG tube placement secondary to laryngeal cancer and treatment. The treatment had left her unable to adequately take in p.o. intake. At her last visit, she was recurrently pulling out PEG tube and had recurrent placements. We did make significant med adjustments and since that time the patient's son and the patient herself admits that she is much improved as far as overall mental status and had not been attempting to remove her PEG tube, although had developed aspiration pneumonia. The patient admits to having abdominal fullness and also reflux symptoms and there is some concern by both the patient and also the patient's son who is a worker at a respiratory therapist at [place] that the patient may be aspirating due to possible gastroparesis. At this point in time, the patient reports she is mostly comfortable except that she is having difficulty with discomfort on her forehead due to BiPAP placement. She has been off and on this and otherwise been on high flow nasal cannula. She has had some difficult recovery despite a significant treatment for this aspiration pneumonia. PAST MEDICAL HISTORY: Aspiration pneumonia with recurrence, dysphagia, history of laryngeal cancer, osteoporosis, gastroparesis, chronic combined congestive heart failure, last ejection fraction 45%, acute on chronic hypoxic respiratory failure. PAST SURGICAL HISTORY: Appendectomy, PEG tube placement 08/2017 with also replacement 03/2018 and also 09/2018 and cataract surgery. FAMILY HISTORY: Father with lung cancer, COPD. Mother with cerebrovascular accident. SOCIAL HISTORY: She is a former smoker. Son is not present for my interview, but I did discuss with him on the phone her current condition. Additionally, we [address] [address] CONSULTATION Name: CORINEALYSE Room #: 360-P [facility] IN M.R.#: [id number] Admission: 12/21/18 ������������������ Attend Phys: Lesly Lauren Discharge: ������������������ Date of : 42 Report #: [id number] have confirmed that her code status is DNR at this time. MEDICATIONS: Xanax, potassium chloride, losartan, hydralazine, Norvasc, Pulmicort, trazodone, sertraline, pilocarpine, Mag-Ox, Pepcid, aspirin 325 mg, levothyroxine. ALLERGIES: DEPAKOTE WHICH CAUSED HER TO HAVE SIGNIFICANT MENTAL STATUS DETERIORATION. REVIEW OF SYSTEMS: Difficult to obtain at this time due to her present dysarthria, however I was able to obtain that she has some discomfort to her forehead due to BiPAP placement. She denies any pain throughout the rest of her body. She does have significant dyspnea. Certainly has continued cough. Certainly has had anorexia in the past. She has PEG tube and reports significant fullness with PEG tube feedings even at lower rate. PHYSICAL EXAMINATION: VITAL SIGNS: Temperature 36.4, pulse 101, respirations 20, blood pressure 178/77. She is 90% on BiPAP currently. GENERAL: The patient is alert. She appears to be oriented x 3, although it is difficult to fully assess. CARDIOVASCULAR: Tachycardic rate. Regular rhythm. RESPIRATORY: Diffuse rales noted and mechanical lung sounds at this time. ABDOMEN: Appears to be soft, although diffuse tenderness to palpation is noted. EXTREMITIES: Diffuse cachexia noted. LABORATORY AND DIAGNOSTIC DATA: These were reviewed. She had a white blood cell 15.6, hemoglobin 9.7, potassium 3.1 and creatinine 0.6. ASSESSMENT AND PLAN: 1. Aspiration pneumonia with recurrence: I did discuss significantly with the patient today the risk of recurrence of this, especially considering gastroparesis history. We will consult Gastroenterology for the possibility of alternate tube placement for reduction of gastroparesis effects and reduction of aspiration risk. Additionally, discussed this with Dr. Blas today and discussed this with the patient and the patient's son, also discussed the possibility if she were to have recurrent aspiration despite this attempt or without any interventions if she wants to return to the hospital, the patient denies that she would want to return, would instead have palliative care requested at her facility. Again confirmed DNR status. I did discuss this with the patient's son at this time. I spent approximately 35 minutes on discussion of advanced care planning today. 2. Dysphagia: Again this is the overall cause of above with significant contributions from gastroparesis. We will consult GI. 3. Protein calorie malnutrition: Again, the patient was refusing PEG tube feeds, but it sounds like it was due to her overall discomfort and reflux [facility] [address] [place] [address] CONSULTATION Name: ALYSE STEVENS Room #: 360-P ADM IN .R.#: [id number] Admission: 12/21/18 ������������������ Attend Phys: Lesly Lauren Discharge: ������������������ Date of : 42 Report #: [id number] symptoms when she was having these feeds again as per previous. Thank you very much for this consultation. I will follow along with her care. Please contact me for any questions regarding this consult. ��������������������������������������������� ���������������������������������������� By: ��������������������������������������������� 2111 0034 Carson Garza DO /nt
[~2018-12-20 23:47] MED LIST changes: +BIOTIN5000 MCG PER TUBE; -BIOTIN5000 MCG PO; +ELEMENTAL CALC600 MG PER TUBE; +LOSARTAN POTASS50 MG PO; -PROLIA60 MG/1 ML IM; +PROLIA60 MG/1 ML SUBQ
[2018-12-20 23:52] VITALS: BP 87/46
[2018-12-21] VITALS (7 sets, daily range): BP systolic 97–137; BP diastolic 47–73
[2018-12-21 00:17] LABS: BE(vivo) 0.6 mmol/L (-2 to +3); HCO3 24.5 mmol/L (22.0-26.0); PCO2 36.7 mmHg (35.0-45.0); PO2 107.1 mmHg (80.0-100.0); pH 7.443 (7.360-7.450); sO2 98.1 % (92.0-98.0)
[2018-12-21 00:22] LABS: ABSOLUTE NEUTROPHILS 8.6 thou/uL (1.4-8.2); BASOPHILS 0.2 % (0.0-2.0); HEMATOCRIT 32.8 % (37.0-47.0); MCH 30.7 pg (26.0-34.0); MCHC 33.6 g/dL (28.0-37.0); MCV 91.5 fL (80.0-100.0); MONOCYTES 4.7 % (1.0-8.0); PLATELET COUNT 192 thou/uL (150-400); POLYS 91.1 % (36.0-66.0); RBC 3.59 mil/uL (4.20-5.00); RDW 16.5 % (10.5-14.5); WBC 9.5 thou/uL (4.0-11.0)
[2018-12-21 00:24] LABS: URINE BILIRUBIN NEGATIVE (Negative); URINE BLOOD 3+ (Negative); URINE CLARITY CLOUDY; URINE COLOR YELLOW; URINE GLUCOSE-RANDOM* NEGATIVE (Negative); URINE KETONES NEGATIVE (Negative); URINE LEUKOCYTES-REFLEX TRACE (Negative); URINE NITRITE-REFLEX NEGATIVE (Negative); URINE PROTEIN (DIPSTICK) 3+ (Negative); URINE SPECIFIC GRAVITY 1.025 (1.005-1.035); URINE UROBILINOGEN 0.2 E.U./dl (0.2-1.0)
[2018-12-21 00:35] LABS: AMP/METHAMP Negative (Negative); BARBITURATES POSITIVE (Negative); BENZODIAZEPINES POSITIVE (Negative); COCAINE Negative (Negative); METHADONE Negative (Negative); OPIATES Negative (Negative); PCP Negative (Negative)
[2018-12-21] MEDS ORDERED: TYLENOL325 MG PER TUBE (00:35)
[2018-12-21 00:37] LABS: INR 1.1; PROTIME 10.9 Seconds (9.3-11.4)
[2018-12-21] MEDS ORDERED: CALMOSEPTINE OI71 GM TOP (00:42)
[2018-12-21] MEDS ORDERED: LOPERAMIDE 2 MG2 M1 PO (00:43)
[2018-12-21] MEDS ORDERED: BUTALB-APAP-CA1 EACH PO ×2 (00:43→04:46)
[2018-12-21 00:44] LABS: ALBUMIN 2.4 g/dL (3.4-5.0); ANION GAP 11 mmol/L (7-16); BUN 16 mg/dL (7-18); CALCIUM 8.7 mg/dL (8.5-10.1); CHLORIDE 102 mmol/L (98-107); CO2 26 mmol/L (21-32); CREATININE 0.9 mg/dL (0.6-1.0); GLUCOSE 217 mg/dL (74-106); MAGNESIUM 1.6 mg/dL (1.8-2.4); SGOT 25 U/L (15-37); SGPT 23 U/L (30-65); SODIUM 139 mmol/L (136-145); TOTAL BILIRUBIN 0.4 mg/dL (<0.1-1.0); TROPONIN-I <0.06 ng/mL (<0.06)
[2018-12-21] MEDS ORDERED: MUCINEX600 MG PO (00:44)
[2018-12-21] MEDS ORDERED: NUTREN PER TUBE (00:45)
[2018-12-21 00:46] LABS: SQUAMOUS 0-3 Few /LPF (0-3); WBC CLUMPS Rare (None Seen)
[2018-12-21] MEDS ORDERED: NYSTATIN1 EAC7 TOP (00:46)
[2018-12-21 00:47] LABS: BACTERIA-REFLEX >30 Many /HPF (None Seen); CELLULAR CASTS 0-3 Few /LPF (None Seen); CRYSTALS None Seen /LPF (None Seen); HYALINE CASTS 0-3 Few /LPF (None Seen); MUCUS 4-6 Moderate strn/LPF (None Seen)
[2018-12-21] MEDS ORDERED: OMEPRAZOLE10 MG PER TUBE (00:47)
[2018-12-21] MEDS ORDERED: KLOR-CON 1010 MEQ PER TUBE (00:48)
[2018-12-21] MEDS ORDERED: PROLIA60 MG/1 ML SUBQ (00:49)
[2018-12-21 00:51] LABS: POTASSIUM 2.2 mmol/L (3.5-5.1)
[2018-12-21] MEDS ORDERED: REGLAN 10 MG TA10 MG PER TUBE ×2 (00:56→12:10)
[2018-12-21] MEDS ORDERED: ZOLOFT25 MG PER TUBE (00:57)
--- NOTE | 2018-12-21 01:04 | NUR ---
PATIENT BEING TAKEN TO CT SCAN AT THIS TIME
--- NOTE | 2018-12-21 02:17 | NUR ---
SON LEFT. TOOK PATIENT'S [facility] [place] HOME WITH HIM
--- NOTE | 2018-12-21 02:27 | NUR ---
REPORT TO JAIDEN ON 3W. PATIENT TO BE TRANSPORTED TO HER ROOM AT THIS TIME
--- NOTE | 2018-12-21 02:59 | NUR ---
0220 PT ARRIVED HERE FROM ED VIA STRETCHER IN STABLE CONDITION. PT PLACED ON TELEMETRY. ALBERTO HARMON HERE TO SEE PT. WILL ADMIT PT TO FLOOR.
--- NOTE | 2018-12-21 04:14 | NUR ---
UNABLE TO GET PT TO SIGN ACKNOWLAGEMENT PAPER REGARDING TELEMETRY INTERFERENCE AND FALL CONTRACT AND MEDICARE PAPERWORK D/T PT TOO WEAK AND DROWSY. WILL HAVE BRONWYN(SON) DPOA SIGN ONCE HE COMES IN TODAY.
[2018-12-21] MEDS ORDERED: IPRAT-ALBUT 0.5-3 ML INH (04:50)
[2018-12-21] MEDS ORDERED: VITAMIN B-12500 MCG PO ×2 (05:03→12:09)
[2018-12-21 06:17] LABS: CALCIUM 8.5 mg/dL (8.5-10.1); CREATININE 0.7 mg/dL (0.6-1.0); MAGNESIUM 2.5 mg/dL (1.8-2.4); POTASSIUM 3.1 mmol/L (3.5-5.1)
--- NOTE | 2018-12-21 08:36 | NUR ---
Nutritioon: Current flush of 200 ml Q 6 hr (including water from TF) meets 80% est fluid needs. If no IVF rec increase water flush to 200 ml Q 4 hr to better meet fluid needs.
[2018-12-21 10:08] LABS: GLYCOHEMOGLOBIN (HGB A1C) 5.4 % (4.8-5.6)
[2018-12-21] MEDS ORDERED: ASPIRIN325 PER TUBE (11:54)
[2018-12-21] MEDS ORDERED: CARVEDILOL12.5 MG PO (12:00)
--- NOTE | 2018-12-21 12:55 | EKG ---
[place] [address] [address] [facility] [place] [address] ELECTROCARDIOGRAM REPORT Name: ALYSE STEVENS Room #: 360- ADM IN M.R.#: [id number] ������������������ Admission: 12/21/18 ������������������ Attend Phys: Lesly Lauren Discharge: ������������������ Date of : 42 Report #: [id number] ����������������������������������������������������������������� [id number] THIS REPORT FOR: //name// [facility] ED Test Date: 2018-12-20 Test Time: 23:56:16 Pat Name: ALYSE CORINE Department: Room: 360 Gender: F Golf Stud Riveter: [id number] : 1940 Requested By: Rafael Womack Order Number: [id number] MD: Efren Lubin Measurements Intervals [place] Rate: 81 P: 77 LA: 165 QRS: 4 QRSD: 98 T: 45 QT: 544 QTc: 632 Interpretive Statements Sinus rhythm Prolonged QT interval Compared to ECG 09/10/2018 17:55:[address] in the ST and T-wave segments Electronically Signed On 12-21-2018 12:55:36 CDT by Efren Lubin [email or web address] ��������������������������������������������� <ELECTRONICALLY SIGNED> ���������������������������������������� By: Efren Lubin MD, [facility] ��������������������������������������������� 12/21/18 [id number] Efren Lubin MD, [facility] /EPI
--- NOTE | 2018-12-21 15:38 | NUR ---
INITIAL ASSESSMENT: Received consult due to pt being admitted from a nursing facility. FELIPE reviewed chart and spoke with nursing and attending physician. Pt was admitted from [facility] due to hypoxia/AMA/HCAP. Pt currently using NRB mask. FELIPE met with pt and son, Arnulfo (RT at [facility]) at bedside. Introduced role of SW. Pt was unable to participate in conversation. Pt with hx of tongue cancer and has peg tube in place. Pt is NPO. Tube feeding supplies provided by [facility]. Pt was on 5N earlier this year and then went to [facility] on 10/01/18 for 2 weeks. Pt then moved into the [facility] care [place] at [facility]. Pt's son states that plan is for pt to return to [facility]. logistics planner faxed clinical info to facility for review. FELIPE is following to assist as needed with discharge planning.
[2018-12-22 00:20] VITALS: BP 134/66
[2018-12-22 04:28] VITALS: BP 124/57
[2018-12-22 04:36] LABS: CREATININE 0.5 mg/dL (0.6-1.0); POTASSIUM 3.6 mmol/L (3.5-5.1)
[2018-12-22 04:48] LABS: HEMATOCRIT 33.5 % (37.0-47.0); HEMOGLOBIN 11.1 gm/dL (12.0-15.0); MCH 30.4 pg (26.0-34.0); MCHC 33.1 g/dL (28.0-37.0); RBC 3.64 mil/uL (4.20-5.00); RDW 16.4 % (10.5-14.5); WBC 4.2 thou/uL (4.0-11.0)
[2018-12-22 07:31] VITALS: BP 124/59
[2018-12-22 11:26] VITALS: BP 173/71
--- NOTE | 2018-12-22 15:04 | NUR ---
AAOX1. FORGETFUL. AROUSES EASILY WITH VERBAL STIMULI AND FOLLOWS COMMANDS. HAS BEEN INCONTINENT OF STOOL X3 SLIGHTLY FORMED BROWN STOOL PEG INTACT BOLUS TUBE FEEDINGS GIVEN WITH H2O FLUSHES AND 0 RESIDUAL. VILLANUEVA TO DD WITH CLEAR YELLOW URINE OUTPUT. REMAINS ON HIGH FLOW O2 50L AT 100% . CONTINUOUS PULSE OX ON. REFUSES FOOD OR FLUIDS BY MOUTH.
[2018-12-22 15:53] VITALS: BP 148/80
--- NOTE | 2018-12-22 16:05 | NUR ---
SW reviewed chart and spoke with nursing and attending physician. Pt is not prorgressing towards goals for discharge. Pt is on high flow O2 via mask. Pt is from [facility]. No weekend discharge planned. SW is following to assist as needed with discharge planning
[2018-12-22 19:45] VITALS: BP 166/81
[2018-12-23 03:55] VITALS: BP 153/79
[2018-12-23 04:43] LABS: HEMATOCRIT 29.5 % (37.0-47.0); HEMOGLOBIN 9.9 gm/dL (12.0-15.0); MCH 30.6 pg (26.0-34.0); MCHC 33.5 g/dL (28.0-37.0); MCV 91.4 fL (80.0-100.0); RBC 3.23 mil/uL (4.20-5.00); RDW 16.5 % (10.5-14.5); WBC 8.1 thou/uL (4.0-11.0)
[2018-12-23 05:00] LABS: CALCIUM 8.3 mg/dL (8.5-10.1); CREATININE 0.5 mg/dL (0.6-1.0)
[2018-12-23 05:06] LABS: POTASSIUM 2.5 mmol/L (3.5-5.1)
[2018-12-23 07:35] VITALS: BP 167/85
[2018-12-23 11:17] VITALS: BP 115/67
[2018-12-23 15:51] VITALS: BP 176/96
--- NOTE | 2018-12-23 18:40 | NUR ---
PATISUSHMA HAD SLEPT THROUGH THE DAY. PEG TUBE FLUSHES WITHOUT DIFFICULTY. TUBE FEEDINGS WITH MEDS COMPLETED. SHE TOLERATED WELL. CONT ON IV ABT AND NO ADVERSE EFECTS NOTED. WILL CONT WITH PLAN OF CARE.
[2018-12-23 20:15] VITALS: BP 153/88
--- NOTE | 2018-12-24 05:10 | NUR ---
PT RESTFUL THROUGHOUT THE NIGHT ON BIPAP FIO2 @ 50 % AND PT MAINTAINING SATS >93% PT MILDLY CONFUSED, OCCASIONALLY REMOVES BIPAP MASK PT NOTED TO DESAT TO THE 80'S. PT STRICTLY KEPT NPO, BOLUS FEEDING GIVEN PER PEG, NO SIGNIFICANT BM LAST NIGHT JUST A SMEAR. K REPLACEMENT DONE IV AT A SLOW RATE, PT HAS A PERIPHERAL IV AND NOT TOLERATING RATE OF 50ML. URINE OUTPUT 400ML OVERNIGHT.
[2018-12-24 05:17] VITALS: BP 192/94
[2018-12-24 06:26] LABS: HEMATOCRIT 31.8 % (37.0-47.0); HEMOGLOBIN 10.7 gm/dL (12.0-15.0); MCH 30.5 pg (26.0-34.0); MCHC 33.5 g/dL (28.0-37.0); MCV 91.1 fL (80.0-100.0); RBC 3.5 mil/uL (4.20-5.00); RDW 16.5 % (10.5-14.5); WBC 9.9 thou/uL (4.0-11.0)
[2018-12-24 06:35] LABS: CALCIUM 8.9 mg/dL (8.5-10.1); CREATININE 0.5 mg/dL (0.6-1.0); POTASSIUM 3.3 mmol/L (3.5-5.1)
[2018-12-24 07:30] VITALS: BP 164/79
[2018-12-24 11:20] VITALS: BP 190/93
[2018-12-24 16:09] VITALS: BP 220/114
--- NOTE | 2018-12-24 19:37 | NUR ---
Assumed pt care this am, pt was on a high flow O2 via mask. Pt was fed via peg tube but spaced out during the day since pt felt she was getting too full. Water flushes amounting to 300 were given through out the day. K replacement was done in the am since K was at 3.3 Pt follows commands and is easily aroused with verbal stimuli. FC patent drainnig clear yellow urine, continous pulse ox maintained. BP eleveated to 211/93, consulted Dr. Cueva medication ordered, BP down to 146/53 no signs of distress. Pt complained of a head ache and chest pain due to coughing, pain meds given partial relief noted. POC followed.
[2018-12-24 19:45] VITALS: BP 197/104
[2018-12-25 00:12] VITALS: BP 108/62
[2018-12-25 04:40] VITALS: BP 152/77
[2018-12-25 06:01] LABS: CALCIUM 8.7 mg/dL (8.5-10.1); CREATININE 0.4 mg/dL (0.6-1.0)
--- NOTE | 2018-12-25 06:38 | NUR ---
ASSUMED CARE FOR PT AGAIN. PT ALERT AT SOME POINTS AND VERY SLEEPY AT OTHERS. PT SLEPT ON BIPAP FROM 2300-PRESENT. FOLLOWING POC WITH BOLUS FEEDINGS AND WATER FLUSHES. LABS SHOW K+ LOW AGAIN, WILL FOLLOW PROTOCOL FOR REPLACEMENT. Q2 TURNS AND CALL LIGHT WITHIN REACH.
[2018-12-25 07:24] LABS: HEMATOCRIT 31.3 % (37.0-47.0); HEMOGLOBIN 10.3 gm/dL (12.0-15.0); MCH 29.8 pg (26.0-34.0); MCHC 32.7 g/dL (28.0-37.0); MCV 91.1 fL (80.0-100.0); RBC 3.44 mil/uL (4.20-5.00); RDW 16.3 % (10.5-14.5); WBC 10.1 thou/uL (4.0-11.0)
[2018-12-25 08:26] VITALS: BP 125/64
[2018-12-25 11:35] VITALS: BP 126/66
[2018-12-25 16:30] VITALS: BP 117/69
--- NOTE | 2018-12-25 18:42 | NUR ---
PATIENT HAS RESTED IN BED ALL DAY. SHE DECLINED TO GET UP TO CHAIR STATING SHE WAS TOO TIRED. SHE IS ALERT ORIENTED X4. RESPIRATIONS ARE LABORED. CONT ON HIGH ERINN OXYGEN. HAD A BATH TODAY. TUBE FEEDING CONT. WILL CONT WITH PLAN OF CARE.
[2018-12-25 20:07] VITALS: BP 173/96
[2018-12-26] VITALS: BP 92/52
[2018-12-26 04:00] VITALS: BP 95/57
--- NOTE | 2018-12-26 04:18 | NUR ---
Patient making very slow progress towards outcome goals. Breath sounds coarse crackles, cough loose non productive. Continues to require high fahad oxygen/bipap to maintain optimal oxygenation. Has been found to removing oxygen off, desats immediately and recovers after a few seconds. Tolerating tube feedingd.Urine output fair. Tylenol/Fiorecet for neck pain and headache. Oriented only to person and place. Speech garbled and difficult to understand at times. able to write to communicate needs.
[2018-12-26 05:46] LABS: HEMATOCRIT 27.3 % (37.0-47.0); HEMOGLOBIN 9.1 gm/dL (12.0-15.0); MCH 30.5 pg (26.0-34.0); MCHC 33.4 g/dL (28.0-37.0); MCV 91.1 fL (80.0-100.0); RDW 16.8 % (10.5-14.5); WBC 10.4 thou/uL (4.0-11.0)
[2018-12-26 06:06] LABS: CALCIUM 7.8 mg/dL (8.5-10.1); CREATININE 0.5 mg/dL (0.6-1.0); POTASSIUM 3.2 mmol/L (3.5-5.1)
[2018-12-26 07:21] VITALS: BP 151/69
[2018-12-26 11:07] VITALS: BP 130/64
[2018-12-26 15:49] VITALS: BP 174/79
--- NOTE | 2018-12-26 16:31 | NUR ---
PATIENT HAS RESTED IN BED MOST OF THE DAY. SHE DOES APPEAR TO BE TIRED. REFUSED TO GET UP TO CHAIR WHEN OFFERED. SHE IS ALERT ORIENTED X4. CONT ON HIGH ERINN OXYGEN.
[2018-12-26 19:39] VITALS: BP 174/87
[2018-12-27 00:05] VITALS: BP 134/74
[2018-12-27 04:31] VITALS: BP 134/69
--- NOTE | 2018-12-27 05:56 | NUR ---
Patient making slow progress towards outcome goals. Was on BIPAP until about 3 am. Back to high flow cannula sats mid to upper 90's. Loose mostly non productive cough. More alert and uses call light appropritaely for needs.
[2018-12-27 07:27] VITALS: BP 186/95
[2018-12-27 11:18] VITALS: BP 183/85
--- NOTE | 2018-12-27 15:43 | NUR ---
SW reviewed chart and spoke with attending physician. Pt is slowly progressing. Pt remains on bipap and hi flow O2. Palliative care physician to be consulted to discuss plan of care and treatment goals with family. Pt is from [facility]. SW is following to assist as needed with discharge planning.
[2018-12-27 16:39] VITALS: BP 179/90
[2018-12-27 19:25] VITALS: BP 156/77
[2018-12-28 00:14] VITALS: BP 148/71
[2018-12-28 06:12] VITALS: BP 160/78
[2018-12-28 07:24] VITALS: BP 128/65
--- NOTE | 2018-12-28 07:36 | NUR ---
Pt. able to answer orientation questions though she is forgetful at times and has periods of confusion. She has been repositioned for comfort. Denies any pain. Bed alarm on for safety. Maintaining O2 sat greater than 90% on Optiflow at 45%. Shortness of breath with exertion. Bolus feeding tolerated well at MN and 0600 with water flushes. Oral care done. Slowly making progress towards care plan goals.
--- NOTE | 2018-12-28 09:41 | NUR ---
Patient ALOx4 this AM and refusing her tube feed bolus. Patient said it hurts her stomach. Dr. Blas verbally notified of the situation. Dr. Blas said he would order some fluids so she doesn't become dehydrated, and consulted palliative to see if the patient is wanting to go the hospice route. Will ask patient again at time of next feed if she will take at least a little bit per recommendation of Dr. Blas.
[2018-12-28 09:42] LABS: HEMATOCRIT 30.2 % (37.0-47.0); HEMOGLOBIN 9.7 gm/dL (12.0-15.0); MCH 29.4 pg (26.0-34.0); MCHC 32.2 g/dL (28.0-37.0); MCV 91.4 fL (80.0-100.0); RBC 3.3 mil/uL (4.20-5.00); RDW 17.2 % (10.5-14.5); WBC 15.6 thou/uL (4.0-11.0)
[2018-12-28 09:51] LABS: CALCIUM 8.6 mg/dL (8.5-10.1); CREATININE 0.6 mg/dL (0.6-1.0); POTASSIUM 3.1 mmol/L (3.5-5.1)
[2018-12-28 11:40] VITALS: BP 178/77
--- NOTE | 2018-12-28 14:04 | NUR ---
SW reviewed chart and spoke with attending physician. Pt is not progressing towards goals for discharge. Palliative care physician consulted. ID consulted today due to aspiration pneumonia. SW is following to assist as needed with discharge planning.
[2018-12-28 15:32] VITALS: BP 156/72
[2018-12-28 19:57] VITALS: BP 199/88
--- NOTE | 2018-12-29 03:30 | NUR ---
PATIENT IS ALERT AND ORIENTED. PATIENT IS Q2TURN. PATIENT HAD ONE UNIT OF BLOOD. PATIENT HAS LT HIP PAIN. FROM A FALL X RAY PREFORMED AT [facility]. 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 PATIENT GET REGULAR INFUSIONS AT THE INFUSION CLINIC. PATIENTS LAST INFUSION WAS IN NOVEMBER THE . PATIENT DENIES PAIN. PATIENT HAS STRESS INCONTIENTANCE. PATIENT IS RESTING COMFORTABLY IN BED. WCM. PATIENT IS PROGRESSING TO GOALS.
--- NOTE | 2018-12-29 03:44 | NUR ---
PAIENT IS ALERT AND ORIENTED. PATIENT IS Q2TURN. PATIENT IS ON HIGH FLOW NC WITH 40L AND 50% FIO2. PATIENTS HOB IS ELEVATED. PATIENT WAS BATHED. PATIENTS PEG TUBE IS EXCORIATIED AND HAS YELLOW DRAINAGE. DRESSING WAS CHANGED TWICE. PATIENT GET BOLUSES QID UNABLE TO FINISH THEM MOST OF THE TIME. PATIENT GET Q6H 200ML FLUSHES. [facility] HAS A VILLANUEVA. PATIENTS LBM WAS TODAY. PATIENT IS FROM [facility]. PATIENT IS NSR ON TELE. PATIENT IS RESTING COMFORTABLY IN BED. WCM. PATIENT IS PROGESSING TO GOALS
[2018-12-29 03:46] VITALS: BP 152/58
[2018-12-29 05:53] LABS: HEMATOCRIT 30.2 % (37.0-47.0); HEMOGLOBIN 9.9 gm/dL (12.0-15.0); MCH 29.7 pg (26.0-34.0); MCHC 32.7 g/dL (28.0-37.0); MCV 90.9 fL (80.0-100.0); RBC 3.33 mil/uL (4.20-5.00); RDW 16.8 % (10.5-14.5); WBC 9.8 thou/uL (4.0-11.0)
[2018-12-29 06:07] LABS: CALCIUM 8.4 mg/dL (8.5-10.1); CREATININE 0.4 mg/dL (0.6-1.0); POTASSIUM 3.8 mmol/L (3.5-5.1)
[2018-12-29 07:29] VITALS: BP 132/63
[2018-12-29 12:00] VITALS: BP 134/68
--- NOTE | 2018-12-29 12:16 | HC ---
[facility] [place] [address] CONSULTATION Name: ALYSE STEVENS David Room #: 360-P ADM IN M.R.#: [id number] Admission: 12/21/18 ������������������ Attend Phys: Lesly Lauren Discharge: ������������������ Date of : 44 Report #: [id number] THIS REPORT FOR: //name// CC: MERVAT Lauren Physician staff DATE OF SERVICE: 12/28/2018 TYPE OF REPORT: Infectious diseases consultation. REASON FOR CONSULTATION: I was asked to evaluate concerning recurrent pneumonia. 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 She has been on suppressive antibiotic therapy including doxycycline and Augmentin. Hospitalized on 12/21/2018 with decreased mental status and hypoxia. O2 saturation has had dropped into the mid 70s. Subsequently, she has been placed on BiPAP. No positive cultures from her blood. Her sputum did show Klebsiella resistant to ampicillin, first generation cephalosporins, otherwise sensitive. Urinalysis showed pyuria with some bacteriuria, although mixed winifred grew from her culture. She has been on antibiotics including Zosyn. Now on BiPAP. She remains alert. Continue to aspirate despite using a PEG tube. Chest x-ray shows fluctuating pulmonary infiltrates. She had MRSA screen, which was negative. She denies any chest pain. She was fairly weak and not a good historian. She remains on BiPAP. No nausea or vomiting. Still has some drainage around her PEG tube. No diarrhea. No dysuria or frequency. REVIEW OF SYSTEMS: A 10-point review of systems was negative other than what is described above. ALLERGIES: DEPAKOTE. MEDICATIONS: As noted on her MAR including Zosyn. PAST MEDICAL HISTORY: Head and neck cancer, status post resection and radiation, heart disease, hypertension, appendectomy, cataract surgery, hysterectomy and PEG tube placement. FAMILY HISTORY: Vascular disease and COPD. SOCIAL HISTORY: Past smoker. No significant alcohol intake, has been residing at the [facility]. [facility] [address] [place] [address] CONSULTATION Name: ALYSE STEVENS Room #: 360-P [facility]#: [id number] Admission: 12/21/18 ������������������ Attend Phys: Lesly Lauren Discharge: ������������������ Date of : 44 Report #: [id number] PHYSICAL EXAMINATION: VITAL SIGNS: Maximum temperature is 99 degrees, currently afebrile. Vital signs were stable. She is on 45% FiO2 on BiPAP. SKIN: Without rash except for around her PEG tube when she had an area of dermatitis. No palpable adenopathy. HEENT: Eyes, without scleral icterus. Unable to assess her mouth due to her BiPAP. NECK: Supple. LUNGS: Coarse breath sounds, predominantly on the right greater than the left. HEART: Regular without murmur, gallop or rub. ABDOMEN: Soft and nontender. No hepatosplenomegaly or mass appreciated. EXTREMITIES: Without clubbing, cyanosis or edema. GENITAL RECTAL: Not performed. NEUROLOGICAL: Cranial nerves grossly intact. Strength in her left lower extremity was diminished compared to the right. She had left footdrop. Mood appeared confused. LABORATORY STUDIES: Sodium 143, potassium 3.1, bicarbonate 26 and creatinine 0.6. Hemoglobin 9.7; platelet count 293,000 and white count was 15.6. RADIOLOGICAL DATA: Chest x-ray, bilateral infiltrates. Sputum culture from admission showed Klebsiella resistant to ampicillin and first generation cephalosporins. MRSA screen was negative. IMPRESSION: 1. 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 2. 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 3. Anemia, chronic dysphagia and aspiration, now with a percutaneous endoscopic gastrostomy tube. 4. Percutaneous endoscopic gastrostomy tube dermatitis. RECOMMENDATIONS: We will continue IV antibiotic therapy with Zosyn for this, should cover the Klebsiella and we have no evidence of resistant Gram-positive organisms. Continue with aspiration precautions. Continue with PEG dermatitis, topical medication treatment. Obtain repeat sputum culture. Duration of antibiotics will depend upon her initial response to therapy. ��������������������������������������������� <ELECTRONICALLY SIGNED> ���������������������������������������� By: Rafael Breaux MD ��������������������������������������������� 12/29/18 1216 [id number] [id number] Rafael Breaux MD /nt
--- NOTE | 2018-12-29 15:18 | NUR ---
SW reviewed chart and spoke with nursing and attending physician. Palliative care physician did meet with pt yesterday. Pt's code status changed to DNR. GI consulted to evaluate pt's peg tube. Pt has indicated that if her condition does not improve, then she would want hospice care. Awaiting input from GI at this time. FELIPE discussed with palliative care physician. SW is following to assist as needed with discharge planning.
[2018-12-29 16:31] VITALS: BP 177/91
--- NOTE | 2018-12-29 18:21 | NUR ---
assumed care of pt at 0700, pt is a/o times 2-3, denies pain at this time. vss. pt on high flow nc with 50L and 50% fio2. noted to be breathing with accessory muscles, pt coughing but not exoectorating. pt regulates how often and how fast she get TF and she stated to nurse blaise is not ready for her 1800 TF. she has been afibrile.
[2018-12-29 19:40] VITALS: BP 188/86
[2018-12-30 00:06] VITALS: BP 150/85
--- NOTE | 2018-12-30 04:16 | NUR ---
PATIENT IS PROGRESSING SLOWLY IN HER CARE PLAN. VITAL SIGNS MOSTLY STABLE WITH PATIENT REQUIRING PRN MEDICATION FOR HYPERTENSION EARLY IN SHIFT. PATIENT HAS HAD NO COMPLAINTS OF NAUSEA. SHE DID COMPLAIN FREQUENTLY OF HEADACHE WHICH NURSE TREATED EFFECTIVELY WITH PRN MEDICATIONS AND NON PHARMACOLOGICAL INTERVENTION. BREATHING STABLE ON HIGH FLOW NASAL CANNULA EVIDENCED BY OXYGEN SATURATION IN ACCEPTABLE RANGE. PATIENT REFUSED BEING PLACED ON BIPAP OVERNIGHT. TUBE FEEDS AND WATER FLUSHES PER ORDER. PATIENT WAS TURNED FREQUENTLY WITH BARRIER CREAM APPLIED TO PROTECT SKIN. CONTINUE PLAN OF CARE.
[2018-12-30 04:20] VITALS: BP 161/73
[2018-12-30 07:23] VITALS: BP 146/77
[2018-12-30 12:24] VITALS: BP 159/79
--- NOTE | 2018-12-30 13:03 | NUR ---
DISCHARGE PLANNING. PATIENT RESIDES AT [facility]. PLAN IS FOR PATIENT TO RETURN TO [facility] ONCE MEDICALLY READY. CLINICAL INFORMATION FAXED TO [facility] ADMISSIONS. CALL PLACED TO NOTIFY [facility] OF PATIENTS DISCHARGE PLAN. [facility] STATES THAT THEY ARE ABLE TO FACILITATE PATIENTS TUBE FEEDING NEEDS. FOLLOWING. [facility] CONTACT NUMBER IS [phone] FAX [phone]
[2018-12-30 14:48] VITALS: BP 191/102
--- NOTE | 2018-12-30 15:47 | NUR ---
FELIPE reviewed chart and spoke with nursing and attending physician. Pt to have GJ tube placed today in IR. Pt would need continuous tube feeding with GJ tube. systems requirements planner sent updates and discussed with staff at [facility], who state they are able to accommodate pt's continuous tube feeding. FELIPE spoke with pt's son, Arnulfo, to discuss options for possibly hospice care. Pt's son states that he and his would prefer pt to be evaluated by [facility]. Pt's son will discuss with pt, as pt has indicated that she is ready for hospice. Pt's son will be off from work tomorrow. SW explained that pt will need to be evaluated by [facility] to determine if pt meets admission criteria for the hospice house. Pt's son states that if pt does not aspirate with new GJ tube, that she may want to consider returning to her AL facility. Pt's son does state that he will honor his mother wishes. FELIPE is following to assist as needed with discharge planning.
[2018-12-30 20:00] VITALS: BP 176/74
--- NOTE | 2018-12-31 03:23 | NUR ---
ASSESSMENT: PT REMAIN ALERT AND ORIENT TIMES THREE. FOLLOW SIMPLE COMMANDS. ONLY TOLERATED CPAP FOR ONE HOUR. SATS REMAIN >92% ON HIGH FLOW NC. PT HAS A PRODUCTIVE COUGH AND DID ALLOW SUCTIONING A COUPLE OF TIMES, BUT MOST TIMES PT SWALLOWS HER SPUTUM. NO ISSUES WITH FEEDING PT PER GJ TUBE. TOLERATED WELL. HYDRALAZINE WAS GIVEN FOR ELEVATED BP PER PERIMETER. TURNED Q TWO HOURS. HEELS ELEVATED. DENIES PAIN. NO FENTANYL GIVEN. ST PER MONITOR. LOW 100'S. NPO CURRENTLY. RIGHT FA IV PATENT AND INTACT. SLOW PROGRESS TOWARDS DC GOALS, WILL CONTINUE TO MONITOR.
[2018-12-31 03:51] VITALS: BP 136/66
[2018-12-31 07:32] VITALS: BP 153/79
[2018-12-31 11:54] VITALS: BP 166/73
[2018-12-31 15:00] VITALS: BP 136/63
--- NOTE | 2018-12-31 16:00 | NUR ---
PT AND SON BRONWYN AND SWS DEQUAN DISCUSSED HOSPICE HOUSE...SHE HAS DECIDED TO BECOME PALLITIVE CARE...WILL ASK DR ABOUT PALLITIVE CARE MEDS...
--- NOTE | 2018-12-31 16:04 | NUR ---
FELIPE reviewed chart and spoke with nursing and attending physician. Pt had GJ tube placed yesterday in IR. Pt remains on hiflow O2 and bipap PRN. FELIPE met with pt and son, Arnulfo, at bedside to provide update and discuss plan of care. Discussion regarding plan for continuing aggressive treatment or option for comfort care/hospice. Pt states she wants hospice. Pt's spouse was on hospice with [facility]. Pt requests referral to Hospice and is hoping to be admitted to [facility]. SW discussed admission criteria for the hospice house. Pt verbalized understanding. Pt's son requests evaluation to be on Thursday, 01/02. discharge planner faxed clinical info to [facility]. FELIPE spoke with Bozena in intake. Weekend Hospice staff will contact pt's son to schedule eval and informational visit. Should pt be accepted to the hospice, ambulance transportation will need to be arranged when a room is available at the hospice house. FELIPE is following to assist as needed with discharge planning. [facility] [place]--
[2018-12-31 20:10] VITALS: BP 179/94
[2019-01-01 00:03] VITALS: BP 169/79
--- NOTE | 2019-01-01 00:11 | NUR ---
bs for rapid response team 135 no treatment required.
[2019-01-01 03:35] VITALS: BP 121/63
--- NOTE | 2019-01-01 04:44 | NUR ---
2100 PATIENT SAT DECREASED TO 82% ON OPTIFLO AT 50L AND 70%. INCREASED FIO2 TO 100% FOR 45 MIN, THEN REMAINED 85-87%. ORIENTED X4 AND ASKING FOR HS XANAX AND FIORCET. 2200 RESTING QUIETLY WITHOUT PRESENT COMPLAINTS. 0003 O2 SAT 82%. PATIENT NON RESPONSIVE BUT WILL FLUTTER EYES TO DEEP STERNAL RUB AND COLD WET CLOTH. RT AND STUCCO APPLICATOR NOTIFIED. PLACED ON BIPAP AT 100%. SON BRONWYN NOTIFIED OF STATUS CHANGE AND WILL COME. PATIENT WITH BROWN LIQUID IN MOUTH. SUCTIONED. TUBE FEEDING TURNED OFF AND FLUSHED. 0025 DR LINDER RETURNED CALL. ORDERS FOR MOROPHINE FOR AIR HUNGER RECIEVED. ASKED TO LET SON KNOW SHE IS TIRED AND WE WILL FOLLOW HIS WISHES. 0100 SON AND DAUGHTER IN LAW AT BEDSIDE. SON ASKED FOR MOROPHINE TO BE GIVEN AND THEN WILL TAKE OFF BIPAP AND PLACE ON 2L/NC. STATES JUST WANTS HER COMFORTABLE. 0245 SON STATES SHE IS COMFORTABLE AT THIS TIME AND HE WILL GO HOME FOR AWHILE. STATES IF SHE PASSES TO PLEASE CALL. 0500 ON 2L/NC AND O2 SAT 65%. BP 121/63, RR 26, PULSE REMAINS IN 110-120. REPOSITIONED FOR COMFORT. APPEARS COMFORTABLE AT THIS TIME. CONTINUE TO ASSES CLOSELY.
[2019-01-01 07:32] VITALS: BP 111/63
--- NOTE | 2019-01-01 15:31 | NUR ---
ASSUMED CARE OF PT AT APPROX 0700. PT ON COMFORT CARE AT THIS TIME. MORPHINE GIVEN NEEDED PER ORDER. SON UPDATED VIA PHONE ON PT CONDITION. SON CAME IN WITH AT BEDSIDE WITH PT. APPROX 105O SON ASKED FOR MORE MORPINHE. BEFORE MORPHINE PULLED, ONCOLOGY RESEARCH RN AND INFORMATION SYSTEMS SECURITY DEVELOPER REPORTED SUDDEN DROP IN PT HR THAT WAS CONTINUOUSLY DROPPING. UPON ARRIVAL AT BEDSIDE. PT WAS AGONAL BREATHING HR REACHED ASYSTOLE. SON AND HIS AT BEDSIDE. 2 RN VERIFY WITH TIME OF OF 1055. PACKET COMPLETED. DOCTOR CAME TO BEDSIDE. AND CONSULTS NOTIFIED. PT CLEANED AND BAGGED. ALL BELONGINGS WITH FAMILY.
== END 2019-01-01 10:55 | DRG 177 ==
LOC: ER 23:47 → 3W 12-21 01:12 → EROBS 12-21 01:12 → 3W 12-21 02:27
PROVIDERS: Emergency Medicine; Hospitalist; Nurse Practitioner Acute Care; ADMIT Hospitalist
PROC: 5A09357 Assistance with Respiratory Ventilation, Less than 24 Consecutive Hours, Continuous Positive Airway Pressure (ICD-10-PCS; principal; 2018-12-23)
PROC: 5A09357 Assistance with Respiratory Ventilation, Less than 24 Consecutive Hours, Continuous Positive Airway Pressure (ICD-10-PCS; 2018-12-24)
PROC: 5A09357 Assistance with Respiratory Ventilation, Less than 24 Consecutive Hours, Continuous Positive Airway Pressure (ICD-10-PCS; 2018-12-25)
PROC: 5A09357 Assistance with Respiratory Ventilation, Less than 24 Consecutive Hours, Continuous Positive Airway Pressure (ICD-10-PCS; 2018-12-26)
PROC: 5A09357 Assistance with Respiratory Ventilation, Less than 24 Consecutive Hours, Continuous Positive Airway Pressure (ICD-10-PCS; 2018-12-27)
PROC: 0D20XUZ Change Feeding Device in Upper Intestinal Tract, External Approach (ICD-10-PCS; 2018-12-30)
PROC: 5A09357 Assistance with Respiratory Ventilation, Less than 24 Consecutive Hours, Continuous Positive Airway Pressure (ICD-10-PCS; 2019-01-01)
DX: J69.0 Pneumonitis due to inhalation of food and vomit (principal); J96.21 Acute and chronic respiratory failure with hypoxia; G92 Toxic encephalopathy; K94.23 Gastrostomy malfunction; N39.0 Urinary tract infection, site not specified; E46 Unspecified protein-calorie malnutrition; I50.42 Chronic combined systolic (congestive) and diastolic (congestive) heart failure; M86.8X8 Other osteomyelitis, other site; Z68.1 Body mass index [BMI] 19.9 or less, adult; E78.00 Pure hypercholesterolemia, unspecified; E03.9 Hypothyroidism, unspecified; F32.9 Major depressive disorder, single episode, unspecified; E87.6 Hypokalemia; K31.84 Gastroparesis; E83.42 Hypomagnesemia; I11.0 Hypertensive heart disease with heart failure; M81.0 Age-related osteoporosis without current pathological fracture; R13.10 Dysphagia, unspecified; D64.9 Anemia, unspecified; L30.9 Dermatitis, unspecified; F41.9 Anxiety disorder, unspecified; R73.9 Hyperglycemia, unspecified; I95.9 Hypotension, unspecified; Z79.82 Long term (current) use of aspirin; Z79.899 Other long term (current) drug therapy; Z92.3 Personal history of irradiation; Z85.810 Personal history of malignant neoplasm of tongue; Z90.710 Acquired absence of both cervix and uterus; Z98.49 Cataract extraction status, unspecified eye; Z87.891 Personal history of nicotine dependence; Z90.49 Acquired absence of other specified parts of digestive tract; Z80.1 Family history of malignant neoplasm of trachea, bronchus and lung; Z83.6 Family history of other diseases of the respiratory system; Z82.3 Family history of stroke
CPT/HCPCS: 10879